=== PATIENT | female | born 2005 | race Caucasian/White ===

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

== ENCOUNTER 2023-03-31 12:52 | Emergency (ER) | payer MEDICAID, SELFPAY ==
[2023-03-31 12:56] VITALS: BP 108/72; PULSE 120; O2SAT 99
[2023-03-31 13:03] VITALS: BP 103/67; PULSE 94; RESP 18; TEMP 36.6; O2SAT 98; BMI 30.3
[2023-03-31 13:21] LABS: MANUAL DIFF FLAG NO
[2023-03-31 13:22] LABS: Basophils Absolute Auto 0.1 X10*3/uL (0.0-0.2); Basophils Percent Auto 0.8 % (0-2); Eosinophils Absolute Auto 0.3 X10*3/uL (0.0-0.4); Eosinophils Percent Auto 3.9 % (0-4); Hematocrit 37.5 % (37.0-47.0); Hemoglobin 13.2 g/dl (12.0-16.0); Imm Gran Abs Auto 0.02 X10*3/uL (0.00-0.03); Imm Gran Pct Auto 0.3 % (0.0-0.4); Lymphocytes Absolute Auto 1.8 X10*3/uL (1.2-4.9); Lymphocytes Percent Auto 24.7 % (20-40); Mean Corpuscular HGB Conc 35.2 g/dl (31.0-35.0); Mean Corpuscular Hemoglobin 31.4 pg (27.0-33.0); Mean Corpuscular Volume 89.3 fL (80.0-98.0); Monocytes Absolute Auto 0.4 X10*3/uL (0.1-1.2); Monocytes Percent Auto 6.1 % (2-11); Neutrophils Absolute Auto 4.6 x10*3/uL (2.0-8.3); Neutrophils Percent Auto 64.2 % (45-73); Platelet Count 272 X10*3/uL (160-400); Red Cell Distribution Width 11.7 % (11.0-16.0); White Blood Count 7.2 X10*3/uL (4.8-10.8)
[2023-03-31] MEDS: 0.9 % Sodium Chloride 1,000 ML 999 ML IV (13:35)
[2023-03-31 13:42] LABS: Alanine Aminotransferase 15 U/L (0-31); Albumin Level 4.3 g/dL (3.5-5.0); Alkaline Phosphatase 72 U/L (39-117); Anion Gap 9 (12-20); Aspartate Amino Transferase 22 U/L (5-31); Bilirubin Total 0.2 mg/dL (0.0-1.0); Blood Urea Nitrogen 12 mg/dL (9-16); Calcium 9.3 mg/dL (8.4-10.2); Carbon Dioxide 23 mmol/L (22-29); Chloride 111 mmol/L (96-108); Creatinine Clr Calc Pharmacy 88.6; Estimated Glomerular Filt Rate > 60; Glucose Random 103 mg/dL (60-115); HCG Quantitative < 2 mIU/mL; Potassium 3.4 mmol/L (3.3-5.1); Sodium 140 mmol/L (135-145); Total Protein 6.6 g/dL (6.5-8.0)
--- NOTE | 2023-03-31 13:50 | ED.SEIZURE ---
HPI - Seizure General Chief Complaint: Seizure Stated Complaint: SZ @ [facility] PER EMS Time Seen by Provider: 03/31/23 13:09 Source: patient and other (Teacher) Mode of arrival: EMS History of Present Illness HPI Narrative: 17-year-old female who presents via ambulance for 2 witnessed seizures while sitting and having lunch with her teacher. Patient did not fall in the floor, she was gently lowered to the floor by her teacher. Patient denies any recent medication changes and endorses that she has been taking medication as prescribed. Patient reports that she has had some lower abdominal discomfort for approximately 1 week with morning time nausea, she does have chronic nausea at baseline for which she has a prescription for the nausea, she reports sore throat denies any fevers or chills and states that she does have some burning on urination. Seizure History: Yes Place: Outdoors Related Data Home Medications Medication Instructions Recorded Confirmed cholecalciferol (vitamin D3) 25 50 mcg PO DAILY 08/14/20 01/19/23 mcg (1,000 unit) capsule (Vitamin D3) clobazam 10 mg tablet (Onfi) See Rx Instructions PO DAILY 08/14/20 01/19/23 clonazepam 2 mg disintegrating 2 mg PO ONCE PRN seizure activity 08/14/20 01/19/23 tablet diazepam 12.5 mg-15 mg-17.5 mg-20 12.5 mg OK ONCE PRN seizure 08/14/20 01/19/23 mg rectal kit activity famotidine 20 mg tablet 20 mg PO BID 08/14/20 01/19/23 fexofenadine 180 mg tablet 180 mg PO DAILY 08/14/20 01/19/23 (Allergy Relief (fexofenadine)) fluticasone propionate 50 1 spray intranasal DAILY 08/14/20 01/19/23 mcg/actuation nasal spray,suspension (Flonase Allergy Relief) ketotifen fumarate 0.025 % (0.035 1 drp ophthalmic (eye) BID 08/14/20 01/19/23 %) eye drops (Alaway) lactobacillus combination no.4 3 3,000 mmu cells PO DAILY 08/14/20 01/19/23 billion cell capsule (Probiotic) magnesium 250 mg tablet 500 mg PO DAILY 08/14/20 01/19/23 mecobalamin (vitamin B12) 5,000 mcg PO 08/14/20 01/19/23 mcg disintegrating tablet melatonin 5 mg tablet 5 mg PO BEDTIME PRN 08/14/20 01/19/23 multivitamin 1 tab PO DAILY 08/14/20 01/19/23 omeprazole 20 mg capsule,delayed 20 mg PO DAILY PRN abdominal pain 08/14/20 01/19/23 release ondansetron 8 mg disintegrating 8 mg PO Q8H PRN nausea and vomiting 08/14/20 01/19/23 tablet polyethylene glycol 3350 17 gram 17 g PO DAILY 08/14/20 01/19/23 oral powder packet (Miralax) pyridoxine (vitamin B6) 100 mg 100 mg PO BID 08/14/20 01/19/23 tablet riboflavin (vitamin B2) 100 mg 100 mg PO BID 08/14/20 01/19/23 tablet risperidone 1 mg tablet 1 mg PO BEDTIME 08/14/20 01/19/23 sennosides 8.6 mg capsule (senna) 8.6 mg PO BEDTIME 08/14/20 01/19/23 sertraline 100 mg tablet 100 mg PO DAILY 08/14/20 01/19/23 sumatriptan succinate 50 mg tablet 50 mg PO ONCE PRN migraine headache 08/14/20 01/19/23 (Imitrex) zonisamide 50 mg capsule 200 mg PO DAILY 08/14/20 01/19/23 rizatriptan 10 mg tablet 10 mg PO 01/14/22 01/19/23 sertraline 25 mg tablet 25 mg PO DAILY 01/14/22 01/19/23 trazodone 100 mg tablet 50 mg PO BEDTIME 01/14/22 01/19/23 magnesium gluconate 27 mg 27 mg PO DAILY 05/31/22 01/19/23 magnesium (500 mg) tablet (Mag-G) polyethylene glycol 3350 17 17 g PO DAILY 05/31/22 01/19/23 gram/dose oral powder (Gavilax) trazodone 50 mg tablet 50 mg PO 05/31/22 01/19/23 lamotrigine 100 mg disintegrating 300 mg PO DAILY 01/19/23 01/19/23 tablet (Lamictal ODT) Previous Rx's Medication Instructions Recorded ibuprofen 400 mg tablet 400 mg PO Q6H PRN fever or pain 09/16/20 #90 tabs oxybutynin chloride 10 mg 10 mg PO DAILY OAB 30 days #30 tabs 01/28/22 tablet,extended release 24 hr desmopressin 0.1 mg tablet 0.1 mg PO BEDTIME 90 days #90 tabs 02/28/23 epinephrine 0.3 mg/0.3 mL 0.3 mg (0.3 mL) IM Q15M PRN 03/15/23 injection, auto-injector anaphylaxis #2 ea miscellaneous medical supply See Rx Instructions .Route 03/18/23 .COMPLEX #90 ea Allergies Allergy/AdvReac Type Severity Reaction Status Date / Time cat dander Allergy Mild Watery Eye Verified 03/31/23 13:03 feathers Allergy Mild Watery Eye Verified 03/31/23 13:03 mold Allergy Mild Watery Eye Verified 03/31/23 13:03 acetaminophen Allergy Unknown Hives Verified 03/31/23 13:03 tree and shrub pollen Allergy Unknown Watery Eye Verified 03/31/23 13:03 cockroach Allergy Mild Watery Eye Uncoded 01/19/23 08:51 dust mites Allergy Mild Watery Eye Uncoded 01/19/23 08:51 Mouse Allergy Mild Itchy Eyes Uncoded 01/19/23 08:51 environmental Allergy Unknown Watery Eye Uncoded 01/19/23 08:51 lemon, [place], citrus Allergy Unknown rash Uncoded 01/19/23 08:51 red apples, peaches Allergy Unknown hives Uncoded 01/19/23 08:51 Review of Systems Review of Systems: Pertinent positives and negatives as stated in HPI [facility] Past Medical History Source: nursing notes reviewed Medical History Frequent UTI Kidney stones Schizoaffective disorder Autism Anxiety OCD (obsessive compulsive disorder) Intellectual disability Migraines Chiari malformation type I Central auditory processing disorder Bladder incontinence Cerebral palsy Seizure disorder Surgical History No pertinent past surgical history Family History Family History Mother Substance abuse Depression Anxiety Alcohol abuse Cancer Kidney disease Seizures Asthma ADHD Father Kidney disease ADHD Social History Social History Household Members: Spouse and Other Household Members Other:: w/spouse in [place] w/e's & vacations o/w in [facility] w/ mom & sibs/foster sib Alcohol intake: never Patient Tobacco Use Status: Never used Tobacco Smoked in Last 30 Days: No Advance Directives: No Advance Directives Information Provided: No Physical Exam Vital Signs: Vital Signs: Last Vital Signs Temp 97.8 F 03/31/23 13:03 Pulse 70 03/31/23 14:47 Resp 18 03/31/23 14:09 BP 96/59 L 03/31/23 14:47 Pulse Ox 98 03/31/23 14:09 O2 Del Method Room Air 03/31/23 14:09 BMI result Body Mass Index 30.3 VITAL SIGNS: Reviewed. GENERAL: Well developed, well nourished, in no acute distress. HEAD: Normocephalic/atraumatic EYES: PERRLA, EOMI EARS: Ext canals without abnormality, TMs non-bulging and non-erythematous NOSE: Nares patent bilateral OROPHARYNX: no oral lesions noted, posterior pharynx clear and non-erythematous without noted tonsillar enlargement/erythema/exudates NECK: Supple, no adenopathy LUNGS: Normal breath sounds. No adventitious sounds or accessory muscle use. SpO2<98> CARDIOVASCULAR: Regular rate and rhythm without noted murmurs ABDOMEN: Soft, mild lower abdominal discomfort, non-distended with bowel sounds. MUSCULOSKELETAL: No tenderness, deformities, or effusions noted on gross inspection. EXTREMITIES: No cyanosis, clubbing or edema. SKIN: Inspection of the skin reveals no rashes NEUROLOGIC: Alert and oriented x 4. Strength and sensation to light touch were grossly intact x 4. Medications Administered Discontinued Medications Generic Name Dose Route Start Last Admin Trade Name Freq PRN Reason Stop Dose Admin Sodium Chloride 1,000 mls @ 999 mls/hr 03/31/23 13:45 03/31/23 13:35 Ns IV 03/31/23 14:45 999 mls/hr .Q1H1M BRE Administration Medical Decision Making Medical Decision Making [facility] Narrative: 1357: 17-year-old female with history and clinical presentation, DDX: Breakthrough seizure that will be evaluated for underlying infectious, anemia, electrolyte issues. Although there is lower abdominal discomfort this is been ongoing for 1 week lowering the clinical suspicion for renal colic/appendicitis/ovarian torsion. Will evaluate for ectopic/UTI//viral syndrome. - 1L IVF I reviewed all investigations hematologic indices are negative for evidence of infection as there is no leukocytosis or left shift, no anemia no thrombocytopenia. Patient is afebrile and otherwise hemodynamically stable. Chemistry indices are negative for electrolyte or liver enzyme derangements, there is no THEO. hCG is negative. Urinalysis is negative for UTI or hematuria. Viral testing is otherwise negative and no concern for strep pharyngitis at this time. Patient seizure may be secondary to poor hydration, patient did receive 1 L of IV fluids, but is otherwise discharged home in stable condition with instructions to follow-up with her primary care doctor as well as her neurologist. Differential Diagnosis Differential Diagnoses: The differential diagnosis associated with the presentation includes Please see the discussion above Admission/Observation Consideration of admission/observation: Escalation of care including admission/observation considered Please see the discussion above Lab Data MDM Lab Attestation statement: I reviewed the patient's lab results. Please see the discussion above 03/31/23 13:16 03/31/23 13:16 Labs: Lab Results 03/31/23 03/31/23 03/31/23 Range/Units 13:16 14:10 14:37 WBC 7.2 (4.8-10.8) X10*3/uL RBC 4.20 (4.20-5.50) X10*6/uL Hgb 13.2 (12.0-16.0) g/dl Hct 37.5 (37.0-47.0) % MCV 89.3 (80.0-98.0) fL MCH 31.4 (27.0-33.0) pg MCHC 35.2 H (31.0-35.0) g/dl RDW 11.7 (11.0-16.0) % Plt Count 272 (160-400) X10*3/uL MPV 9.0 L (9.4-12.3) fL Immature Gran % (Auto) 0.3 (0.0-0.4) % Neut % (Auto) 64.2 (45-73) % Lymph % (Auto) 24.7 (20-40) % [place] % (Auto) 6.1 (2-11) % Eos % (Auto) 3.9 (0-4) % Baso % (Auto) 0.8 (0-2) % Lymph # (Auto) 1.8 (1.2-4.9) X10*3/uL [place] # (Auto) 0.4 (0.1-1.2) X10*3/uL Eos # (Auto) 0.3 (0.0-0.4) X10*3/uL Baso # (Auto) 0.1 (0.0-0.2) X10*3/uL Abs Immat Gran (auto) 0.02 (0.00-0.03) X10*3/uL Absolute Neuts (auto) 4.6 (2.0-8.3) x10*3/uL Absolute Nucleated RBC 0.000 (0.0-0.012) X10*3/uL Nucleated RBC % (auto) 0.0 (0.0-0.2) /100WBC Sodium 140 (135-145) mmol/L Potassium 3.4 (3.3-5.1) mmol/L Chloride 111 H (96-108) mmol/L Carbon Dioxide 23 (22-29) mmol/L Anion Gap 9 L (12-20) BUN 12 (9-16) mg/dL Creatinine 0.82 (0.5-1.4) mg/dL Estim Creat Clear Calc 88.6 Estimated GFR > 60 Random Glucose 103 (60-115) mg/dL Calcium 9.3 (8.4-10.2) mg/dL Total Bilirubin 0.2 (0.0-1.0) mg/dL AST 22 (5-31) U/L ALT 15 (0-31) U/L Alkaline Phosphatase 72 (39-117) U/L Total Protein 6.6 (6.5-8.0) g/dL Albumin 4.3 (3.5-5.0) g/dL Beta HCG, Quant < 2 mIU/mL Urine Color Dark Yellow Urine Appearance Clear Urine pH 6.0 (5.0-9.0) Ur Specific [place] 1.020 (1.005-1.025) Urine Protein Negative (Neg-Trace) mg/dL Urine Glucose (UA) Negative (Negative) mg/dL Urine Ketones Negative (Negative) mg/dL Urine Blood Negative (Negative) Urine Nitrite Negative (Negative) Ur Leukocyte Esterase Negative (Negative) Influenza Type A (PCR) NEGATIVE (Negative) Influenza Type B (PCR) NEGATIVE (Negative) RSV RNA Qual (PCR) NEGATIVE (Negative) SARS-CoV-2 RNA (RT-PCR) NEGATIVE (Negative) External Record Review External record reviewed: Outpatient record, Prior outpatient labs and Prior outpatient radiology Chronic Conditions Patient?s care impacted by: Other Schizoaffective disorder, autism, OCD, migraines, cerebral palsy Discharge Plan Discharge Clinical Impression: Seizure disorder Patient Disposition: Home, Self-Care Instructions: Epilepsy (ED) Additional Instructions: 1. Resume all home medications as prescribed. 2. Your workup today was negative for any concerning findings of infection, electrolyte abnormalities, and I recommend follow-up with your primary care doctor and neurologist. Return to the ER for any worsening symptoms. Prescriptions: No Action ibuprofen 400 mg tablet 400 mg PO Q6H PRN (Reason: fever or pain) Qty: 90 1RF desmopressin 0.1 mg tablet 0.1 mg PO BEDTIME 90 Days Qty: 90 0RF epinephrine 0.3 mg/0.3 mL auto-injector 0.3 mg IM Q15M PRN (Reason: anaphylaxis) Qty: 2 1RF Rx Instructions: for 2 doses miscellaneous medical supply Misc See Rx Instructions .ROUTE .COMPLEX Qty: 90 11RF Rx Instructions: pull-ups as directed; size adult small (weight = 55.7 kg). NPI#[id number] clobazam [Onfi] 10 mg tablet See Rx Instructions PO DAILY Rx Instructions: 20 mg qam and 30 mg qhs PO daily; zonisamide 50 mg capsule 200 mg PO DAILY pyridoxine (vitamin B6) 100 mg tablet 100 mg PO BID clonazepam 2 mg tablet,disintegrating 2 mg PO ONCE PRN (Reason: seizure activity) diazepam 12.5-15-17.5-20 mg kit 12.5 mg OK ONCE PRN (Reason: seizure activity) sertraline 100 mg tablet 100 mg PO DAILY risperidone 1 mg tablet 1 mg PO BEDTIME melatonin 5 mg tablet 5 mg PO BEDTIME PRN omeprazole 20 mg capsule,delayed release(DR/EC) 20 mg PO DAILY PRN (Reason: abdominal pain) famotidine 20 mg tablet 20 mg PO BID polyethylene glycol 3350 [Miralax] 17 gram powder in packet 17 g PO DAILY senna 8.6 mg capsule 8.6 mg PO BEDTIME fexofenadine [Allergy Relief (fexofenadine)] 180 mg tablet 180 mg PO DAILY fluticasone propionate [Flonase Allergy Relief] 50 mcg/actuation spray,suspension 1 spray intranasal DAILY Rx Instructions: administer into each nostril ketotifen fumarate [Alaway] 0.025 % (0.035 %) drops 1 drp ophthalmic (eye) BID Rx Instructions: administer at least 8 hours apart multivitamin Tablet 1 tab PO DAILY cholecalciferol (vitamin D3) [Vitamin D3] 25 mcg (1,000 unit) capsule 50 mcg PO DAILY mecobalamin (vitamin B12) 5,000 mcg tablet,disintegrating PO Probiotic 3 billion cell capsule 3,000 mmu cells PO DAILY Rx Instructions: administer with a meal magnesium 250 mg tablet 500 mg PO DAILY riboflavin (vitamin B2) 100 mg tablet 100 mg PO BID sumatriptan succinate [Imitrex] 50 mg tablet 50 mg PO ONCE PRN (Reason: migraine headache) ondansetron 8 mg tablet,disintegrating 8 mg PO Q8H PRN (Reason: nausea and vomiting) trazodone 100 mg tablet 50 mg PO BEDTIME sertraline 25 mg tablet 25 mg PO DAILY rizatriptan 10 mg tablet 10 mg PO magnesium gluconate [Mag-G] 27 mg magnesium (500 mg) tablet 27 mg PO DAILY polyethylene glycol 3350 [Gavilax] 17 gram/dose powder 17 g PO DAILY trazodone 50 mg tablet 50 mg PO lamotrigine [Lamictal ODT] 100 mg tablet,disintegrating 300 mg PO DAILY oxybutynin chloride 10 mg tablet extended release 24 hr 10 mg PO DAILY 30 Days Qty: 30 3RF Referrals: Jennifer Weathers MD [Primary Care Provider] -
[2023-03-31 14:09] VITALS: BP 92/60; PULSE 78; RESP 18; O2SAT 98
[2023-03-31 14:19] LABS: Appearance Urine Clear; Color Urine Dark Yellow; Glucose Urine UA Negative (Negative); Leukocyte Esterase Urine Negative (Negative); Nitrite Urine Negative (Negative); Urine Blood Negative (Negative); Urine Ketones Negative (Negative); Urine Protein Negative (Neg-Trace)
[2023-03-31 14:45] VITALS: BP 91/63; PULSE 67
[2023-03-31 14:46] VITALS: BP 97/59; PULSE 74
[2023-03-31 14:47] VITALS: BP 96/59; PULSE 70
[2023-03-31 15:18] LABS: Influenza A PCR NEGATIVE (Negative); Influenza B PCR NEGATIVE (Negative); Resp Syncy Virus RNA Qual PCR NEGATIVE (Negative); SARS COV2 PCR INHOUSE NEGATIVE (Negative)
== END 2023-03-31 15:51 | disposition home or self-care (01) ==
PROVIDERS: Emergency Provider Student in an Organized Health Care Education/Training Program; PCP Pediatrics
DX: G40.909 Epilepsy, unspecified, not intractable, without status epilepticus (principal); Z20.822 Contact with and (suspected) exposure to COVID-19; Z20.828 Contact with and (suspected) exposure to other viral communicable diseases; F25.9 Schizoaffective disorder, unspecified; G80.9 Cerebral palsy, unspecified; Z79.899 Other long term (current) drug therapy
CPT/HCPCS: 0241U; 36415; 80053; 81003; 84702; 85025; 96360; 96361; 99284

== ENCOUNTER 2023-04-04 13:25 | Emergency (ER) | payer MEDICAID, SELFPAY ==
[2023-04-04 13:42] VITALS: BP 104/66; BP 99/63; PULSE 110; PULSE 99; RESP 16; TEMP 36.8; O2SAT 100; O2SAT 99; BMI 25.9
--- NOTE | 2023-04-04 13:50 | PC.NURSE ---
pt a&ox3, vss. pt biba after having 11 minute long tonic-clonic seizure at [facility]. pt has hx of seizures and aside from today, [place] . pt reports that she usually has an aura prior to seizing - states that she tends to fall asleep out of nowhere and then begins to seize. pt denies incontinence. pt is wheelchair bound d/t hx of cerebral palsy. no trauma noted during seizing event but verbalizes 3/10 postictal headache. pt currently in no apparent distress. respirations even and unlabored. seziure pads in place for safety measures. call sheets placed within reach.
--- NOTE | 2023-04-04 14:04 | ED.SEIZURE ---
HPI - Seizure General Chief Complaint: Seizure Stated Complaint: SEIZURE Time Seen by Provider: 04/04/23 13:28 Source: [facility] and other ([facility] staff) Mode of arrival: EMS Limitations: altered mental status History of Present Illness HPI Narrative: Patient comes to the emergency room via ambulance from [facility]. According to the staff, patient started feeling ?shaky while she was in class, patient was taking to quiet room, then according to the staff, patient had an 11 minute tonic-clonic seizure. When EMS arrived, patient was postictal. Patient does have history of seizures. Patient takes Lamictal and clobazam. Staff at the Pep administers the medications so patient is compliant. During the seizure, patient did not receive any medication. At this time, patient states she feels tired, seems a bit confused. According to the staff, patient has a neurologist at [facility], Dr. Blanka Aranda Seizure History: Yes Place: School Related Data Home Medications Medication Instructions Recorded Confirmed cholecalciferol (vitamin D3) 25 50 mcg PO DAILY 08/14/20 01/19/23 mcg (1,000 unit) capsule (Vitamin D3) clobazam 10 mg tablet (Onfi) See Rx Instructions PO DAILY 08/14/20 01/19/23 clonazepam 2 mg disintegrating 2 mg PO ONCE PRN seizure activity 08/14/20 01/19/23 tablet diazepam 12.5 mg-15 mg-17.5 mg-20 12.5 mg IN ONCE PRN seizure 08/14/20 01/19/23 mg rectal kit activity famotidine 20 mg tablet 20 mg PO BID 08/14/20 01/19/23 fexofenadine 180 mg tablet 180 mg PO DAILY 08/14/20 01/19/23 (Allergy Relief (fexofenadine)) fluticasone propionate 50 1 spray intranasal DAILY 08/14/20 01/19/23 mcg/actuation nasal spray,suspension (Flonase Allergy Relief) ketotifen fumarate 0.025 % (0.035 1 drp ophthalmic (eye) BID 08/14/20 01/19/23 %) eye drops (Alaway) lactobacillus combination no.4 3 3,000 mmu cells PO DAILY 08/14/20 01/19/23 billion cell capsule (Probiotic) magnesium 250 mg tablet 500 mg PO DAILY 08/14/20 01/19/23 mecobalamin (vitamin B12) 5,000 mcg PO 08/14/20 01/19/23 mcg disintegrating tablet melatonin 5 mg tablet 5 mg PO BEDTIME PRN 08/14/20 01/19/23 multivitamin 1 tab PO DAILY 08/14/20 01/19/23 omeprazole 20 mg capsule,delayed 20 mg PO DAILY PRN abdominal pain 08/14/20 01/19/23 release ondansetron 8 mg disintegrating 8 mg PO Q8H PRN nausea and vomiting 08/14/20 01/19/23 tablet polyethylene glycol 3350 17 gram 17 g PO DAILY 08/14/20 01/19/23 oral powder packet (Miralax) pyridoxine (vitamin B6) 100 mg 100 mg PO BID 08/14/20 01/19/23 tablet riboflavin (vitamin B2) 100 mg 100 mg PO BID 08/14/20 01/19/23 tablet risperidone 1 mg tablet 1 mg PO BEDTIME 08/14/20 01/19/23 sennosides 8.6 mg capsule (senna) 8.6 mg PO BEDTIME 08/14/20 01/19/23 sertraline 100 mg tablet 100 mg PO DAILY 08/14/20 01/19/23 sumatriptan succinate 50 mg tablet 50 mg PO ONCE PRN migraine headache 08/14/20 01/19/23 (Imitrex) zonisamide 50 mg capsule 200 mg PO DAILY 08/14/20 01/19/23 rizatriptan 10 mg tablet 10 mg PO 01/14/22 01/19/23 sertraline 25 mg tablet 25 mg PO DAILY 01/14/22 01/19/23 trazodone 100 mg tablet 50 mg PO BEDTIME 01/14/22 01/19/23 magnesium gluconate 27 mg 27 mg PO DAILY 05/31/22 01/19/23 magnesium (500 mg) tablet (Mag-G) polyethylene glycol 3350 17 17 g PO DAILY 05/31/22 01/19/23 gram/dose oral powder (Gavilax) trazodone 50 mg tablet 50 mg PO 05/31/22 01/19/23 lamotrigine 100 mg disintegrating 300 mg PO DAILY 01/19/23 01/19/23 tablet (Lamictal ODT) Previous Rx's Medication Instructions Recorded ibuprofen 400 mg tablet 400 mg PO Q6H PRN fever or pain 09/16/20 #90 tabs oxybutynin chloride 10 mg 10 mg PO DAILY OAB 30 days #30 tabs 01/28/22 tablet,extended release 24 hr desmopressin 0.1 mg tablet 0.1 mg PO BEDTIME 90 days #90 tabs 02/28/23 epinephrine 0.3 mg/0.3 mL 0.3 mg (0.3 mL) IM Q15M PRN 03/15/23 injection, auto-injector anaphylaxis #2 ea miscellaneous medical supply See Rx Instructions .Route 03/18/23 .COMPLEX #90 ea Allergies Allergy/AdvReac Type Severity Reaction Status Date / Time cat dander Allergy Mild Watery Eye Verified 04/04/23 13:42 feathers Allergy Mild Watery Eye Verified 04/04/23 13:42 mold Allergy Mild Watery Eye Verified 04/04/23 13:42 acetaminophen Allergy Unknown Hives Verified 04/04/23 13:42 tree and shrub pollen Allergy Unknown Watery Eye Verified 04/04/23 13:42 cockroach Allergy Mild Watery Eye Uncoded 04/04/23 13:42 dust mites Allergy Mild Watery Eye Uncoded 04/04/23 13:42 Mouse Allergy Mild Itchy Eyes Uncoded 04/04/23 13:42 environmental Allergy Unknown Watery Eye Uncoded 04/04/23 13:42 lemon, [place], citrus Allergy Unknown rash Uncoded 04/04/23 13:42 red apples, peaches Allergy Unknown hives Uncoded 04/04/23 13:42 Review of Systems Review of Systems: Yes Unobtainable due to mental condition (Poor historian, history of autism, cerebral palsy and now postictal) [facility] Past Medical History Medical History Frequent UTI Kidney stones Schizoaffective disorder Autism Anxiety OCD (obsessive compulsive disorder) Intellectual disability Migraines Chiari malformation type I Central auditory processing disorder Bladder incontinence Cerebral palsy Seizure disorder Surgical History No pertinent past surgical history Family History Family History Mother Substance abuse Depression Anxiety Alcohol abuse Cancer Kidney disease Seizures Asthma ADHD Father Kidney disease ADHD Social History Social History Household Members: Spouse and Other Household Members Other:: w/spouse in [place] w/e's & vacations o/w in [facility] w/ mom & sibs/foster sib Alcohol intake: never Patient Tobacco Use Status: Never used Tobacco Smoked in Last 30 Days: No Use of substances other than those prescribed or required for medical reasons: No Advance Directives: No Advance Directives Information Provided: Yes Patient : No Physical Exam Vital Signs: Vital Signs: Last Vital Signs Temp 98.4 F 04/04/23 14:51 Pulse 77 04/04/23 14:51 Resp 18 04/04/23 14:51 BP 100/70 04/04/23 14:51 Pulse Ox 96 04/04/23 14:51 O2 Del Method Room Air 04/04/23 14:51 BMI result Body Mass Index 25.9 Const: Other: Appearance: Alert. Since postictal, No acute distress. Eyes: Pupils equal, round and reactive to light. ENT: Pharynx normal. Neck: Normal inspection. Neck supple. No lymph nodes noted. No crepitus CVS: Normal heart rate and rhythm. Pulses normal. Normal S1 and S2 Respiratory: No respiratory distress. Breath sounds normal. No Wheezing. No rales Abdomen: Soft and nontender. No rigidity. No distention. Skin: Skin warm and dry. Normal skin color. Normal skin turgor. Extremities: No lower extremity edema. No Lacerations. No Rash Neuro: Patient is postictal, a bit confused, difficult to assess cranial nerves but CN 2 through 12 are grossly intact Psych: calm, cooperative Course Course Course Narrative: -all of patient's labs pending -here in the ED, patient has not had any seizure-like activities -once workup is complete, we will try to contact patient's neurologist at [facility] Medical Decision Making Medical Decision Making MDM Narrative: -patient is awake alert and oriented x3, back to baseline, patient states that she refuses to have any of the labs done in requesting to be discharged. Patient instructed to follow-up with her neurologist as her medications may need to be changed and she will need labs. Differential Diagnosis Differential Diagnoses: The differential diagnosis associated with the presentation includes (Seizure, pseudo-seizure) Admission/Observation Consideration of admission/observation: Escalation of care including admission/observation considered (When patient came in, patient seemed postictal, admission was considered) Lab Data MDM Lab Attestation statement: I reviewed the patient's lab results. Labs: Lab Results 04/04/23 Range/Units 14:55 Urine Color Yellow Urine Appearance Clear Urine pH 6.0 (5.0-9.0) Ur Specific [place] <= 1.005 (1.005-1.025) Urine Protein Negative (Neg-Trace) mg/dL Urine Glucose (UA) Negative (Negative) mg/dL Urine Ketones Negative (Negative) mg/dL Urine Blood Negative (Negative) Urine Nitrite Negative (Negative) Ur Leukocyte Esterase Trace H (Negative) Urine RBC 0-2 (0-2) /HPF Urine WBC 0-5 (0-5) /HPF Ur Squamous Epith Cells 0-2 (0-2) /HPF Urine Bacteria None Seen (None Seen) Hyaline Casts 0-2 (0-2) /LPF Critical Care Time Critical Care Time Critical Care Time: Yes Total Critical Care Time: 60 Attestation: I have personally provided critical care time. Time includes review of lab data, radiology results, discussion with consultants, and monitoring for potential decompensation. Intervention performed as documented. Discharge Plan Discharge Clinical Impression: Seizure Patient Disposition: Home, Self-Care Instructions: Recurrent Seizures in Adults (ED) Additional Instructions: You refused to have lab work done. Please follow-up with your neurologist and with your primary care physician tomorrow. If you have any worsening or new symptoms, please return to the emergency room or call 911 Prescriptions: No Action ibuprofen 400 mg tablet 400 mg PO Q6H PRN (Reason: fever or pain) Qty: 90 1RF desmopressin 0.1 mg tablet 0.1 mg PO BEDTIME 90 Days Qty: 90 0RF epinephrine 0.3 mg/0.3 mL auto-injector 0.3 mg IM Q15M PRN (Reason: anaphylaxis) Qty: 2 1RF Rx Instructions: for 2 doses miscellaneous medical supply Misc See Rx Instructions .ROUTE .COMPLEX Qty: 90 11RF Rx Instructions: pull-ups as directed; size adult small (weight = 55.7 kg). NPI#[id number] clobazam [Onfi] 10 mg tablet See Rx Instructions PO DAILY Rx Instructions: 20 mg qam and 30 mg qhs PO daily; zonisamide 50 mg capsule 200 mg PO DAILY pyridoxine (vitamin B6) 100 mg tablet 100 mg PO BID clonazepam 2 mg tablet,disintegrating 2 mg PO ONCE PRN (Reason: seizure activity) diazepam 12.5-15-17.5-20 mg kit 12.5 mg IN ONCE PRN (Reason: seizure activity) sertraline 100 mg tablet 100 mg PO DAILY risperidone 1 mg tablet 1 mg PO BEDTIME melatonin 5 mg tablet 5 mg PO BEDTIME PRN omeprazole 20 mg capsule,delayed release(DR/EC) 20 mg PO DAILY PRN (Reason: abdominal pain) famotidine 20 mg tablet 20 mg PO BID polyethylene glycol 3350 [Miralax] 17 gram powder in packet 17 g PO DAILY senna 8.6 mg capsule 8.6 mg PO BEDTIME fexofenadine [Allergy Relief (fexofenadine)] 180 mg tablet 180 mg PO DAILY fluticasone propionate [Flonase Allergy Relief] 50 mcg/actuation spray,suspension 1 spray intranasal DAILY Rx Instructions: administer into each nostril ketotifen fumarate [Alaway] 0.025 % (0.035 %) drops 1 drp ophthalmic (eye) BID Rx Instructions: administer at least 8 hours apart multivitamin Tablet 1 tab PO DAILY cholecalciferol (vitamin D3) [Vitamin D3] 25 mcg (1,000 unit) capsule 50 mcg PO DAILY mecobalamin (vitamin B12) 5,000 mcg tablet,disintegrating PO Probiotic 3 billion cell capsule 3,000 mmu cells PO DAILY Rx Instructions: administer with a meal magnesium 250 mg tablet 500 mg PO DAILY riboflavin (vitamin B2) 100 mg tablet 100 mg PO BID sumatriptan succinate [Imitrex] 50 mg tablet 50 mg PO ONCE PRN (Reason: migraine headache) ondansetron 8 mg tablet,disintegrating 8 mg PO Q8H PRN (Reason: nausea and vomiting) trazodone 100 mg tablet 50 mg PO BEDTIME sertraline 25 mg tablet 25 mg PO DAILY rizatriptan 10 mg tablet 10 mg PO magnesium gluconate [Mag-G] 27 mg magnesium (500 mg) tablet 27 mg PO DAILY polyethylene glycol 3350 [Gavilax] 17 gram/dose powder 17 g PO DAILY trazodone 50 mg tablet 50 mg PO lamotrigine [Lamictal ODT] 100 mg tablet,disintegrating 300 mg PO DAILY oxybutynin chloride 10 mg tablet extended release 24 hr 10 mg PO DAILY 30 Days Qty: 30 3RF
--- NOTE | 2023-04-04 14:47 | MHC.EDTECH ---
Patient refuse to draw blood.Ask to talk to the nurse. TARSHA Black is aware.
[2023-04-04 14:51] VITALS: BP 100/70; PULSE 77; RESP 18; TEMP 36.9; O2SAT 96
[2023-04-04 15:04] LABS: Appearance Urine Clear; Color Urine Yellow; Glucose Urine UA Negative (Negative); Leukocyte Esterase Urine Trace (Negative); Nitrite Urine Negative (Negative); Specific Gravity - Urine <= 1.005 (1.005-1.025); UMIC TRIGGER UACC YES; Urine Blood Negative (Negative); Urine Ketones Negative (Negative); Urine Protein Negative (Neg-Trace)
[2023-04-04 15:07] LABS: Bacteria Urine None Seen (None Seen); Hyaline Casts Urine 0-2 /LPF (0-2); RBC Urine 0-2 /HPF (0-2); Squamous Epithelial Cell Urine 0-2 /HPF (0-2); WBC Urine 0-5 /HPF (0-5)
[2023-04-04 16:54] LABS: Amphetamine Screen Urine Not Detected (Not Detect); Barbiturates, Urine Not Detected (Not Detect); Benzodiazepines Screen Urine POSITIVE (Not Detect); Cannabinoid Screen Urine Not Detected (Not Detect); Cocaine Screen Urine Not Detected (Not Detect); Fentanyl, urine Not Detected (Not Detect); Opiate Screen Urine Not Detected (Not Detect); Phencyclidine Screen Urine Not Detected (Not Detect)
== END 2023-04-04 15:54 | disposition home or self-care (01) ==
PROVIDERS: Emergency Provider Emergency Medicine
DX: R56.9 Unspecified convulsions (principal); Z79.899 Other long term (current) drug therapy
CPT/HCPCS: 80307; 81001; 81003; 99284

== ENCOUNTER 2023-04-20 15:49 | Outpatient (AMB) | payer MEDICAID, SELFPAY ==
--- NOTE | 2023-04-20 15:56 | MHC.OFVISPED ---
Intake Vital Signs 04/20/23 16:19 Height 4 ft 11.5 in Height percentile 5 Weight 133 lb 2 oz Weight percentile 75 Measurement Type Standing Scale BMI 26.4 BMI percentile 85 Temp 98.2 F Temp Source Oral Pulse 102 H Pulse Source Pulse Oximeter BP 112/70 Blood Pressure Source Manual Cuff/Palpation Position Sitting Pulse Oximetry (%) 99 Pediatric Intake Visit Reasons: TH-Cough,ST, -Covid [phone] Allergies cat dander Allergy (Mild, Verified 04/20/23 16:07) Watery Eye feathers Allergy (Mild, Verified 04/20/23 16:07) Watery Eye mold Allergy (Mild, Verified 04/20/23 16:07) Watery Eye acetaminophen Allergy (Unknown, Verified 04/20/23 16:07) Hives tree and shrub pollen Allergy (Unknown, Verified 04/20/23 16:07) Watery Eye cockroach Allergy (Mild, Uncoded 04/20/23 16:07) Watery Eye dust mites Allergy (Mild, Uncoded 04/20/23 16:07) Watery Eye Mouse Allergy (Mild, Uncoded 04/20/23 16:07) Itchy Eyes environmental Allergy (Unknown, Uncoded 04/20/23 16:07) Watery Eye lemon, [place], citrus Allergy (Unknown, Uncoded 04/20/23 16:07) rash red apples, peaches Allergy (Unknown, Uncoded 04/20/23 16:07) hives Medication List - Last Reconciled 04/20/23 by Jennifer Weathers MD cholecalciferol (vitamin D3) (Vitamin D3) 50 mcg PO DAILY clobazam (Onfi) 20 mg qam and 30 mg qhs PO daily; clonazepam 2 mg PO ONCE PRN desmopressin 0.1 mg PO BEDTIME 90 days diazepam 12.5 mg [place] ONCE PRN epinephrine 0.3 mg (0.3 mL) IM Q15M PRN famotidine 20 mg PO BID fexofenadine (Allergy Relief (fexofenadine)) 180 mg PO DAILY fluticasone propionate 50 mcg/actuation (Flonase Allergy Relief) 1 spray intranasal DAILY ibuprofen 400 mg PO Q6H PRN ketotifen fumarate 0.025%(0.035%) (Alaway) 1 drp ophthalmic (eye) BID lactobacillus combination no.4 (Probiotic) 3,000 mmu cells PO DAILY lamotrigine (Lamictal ODT) 300 mg PO DAILY magnesium 500 mg PO DAILY magnesium gluconate (Mag-G) 27 mg PO DAILY mecobalamin (vitamin B12) mcg PO melatonin 5 mg PO BEDTIME PRN miscellaneous medical supply pull-ups as directed; size adult small (weight = 55.7 kg). NPI#[id number] multivitamin 1 tab PO DAILY omeprazole 20 mg PO DAILY PRN ondansetron 8 mg PO Q8H PRN oxybutynin chloride ER 10 mg PO DAILY 30 days polyethylene glycol 3350 (Miralax) 17 grams PO DAILY polyethylene glycol 3350 (Gavilax) 17 grams PO DAILY pyridoxine (vitamin B6) 100 mg PO BID riboflavin (vitamin B2) 100 mg PO BID risperidone 1 mg PO BEDTIME rizatriptan 10 mg PO sennosides (senna) 8.6 mg PO BEDTIME sertraline 100 mg PO DAILY sertraline 25 mg PO DAILY sumatriptan succinate (Imitrex) 50 mg PO ONCE PRN trazodone 50 mg PO BEDTIME trazodone 50 mg PO zonisamide 200 mg PO DAILY HPI TH-Cough,ST, -Covid [phone] Details: day 5 cough, congestion, rhinorrhea. also ST and body aches. home covid test x 1 was negative. she is very congested and the skin under her nose is irritated and painful. she has left ear pain. she has had tactile fever. 2 d ago after she showered she felt dizzy and fell and hit her head. no abrasion/contusion or LOC. 2 foster sibs at home have RSV PFSH Medical History Frequent UTI Kidney stones Schizoaffective disorder Autism Anxiety OCD (obsessive compulsive disorder) Intellectual disability Migraines Chiari malformation type I Central auditory processing disorder Bladder incontinence Cerebral palsy Seizure disorder Surgical History No pertinent past surgical history Family History Mother Substance abuse Depression Anxiety Alcohol abuse Cancer Kidney disease Seizures Asthma ADHD Father Kidney disease ADHD Social History Household Members: Spouse and Other Household Members Other:: w/spouse in [place] w/e's & vacations o/w in [facility] w/ mom & sibs/foster sib Alcohol intake: never Patient Tobacco Use Status: Never used Tobacco Review of Systems Const Reports as per HPI ENT Reports as per HPI Resp Reports as per HPI GI Reports as per HPI Pediatric Exam Const Constitutional General: healthy appearing, comfortable and no acute distress HENMT Ears: EAC's normal, TM normal on the right and TM abnormal on the left retracted Mouth: Normal oral and palatal mucosa present and moist mucous membranes Throat: posterior oropharynx abnormal erythema Neck Other: neck supple Lymphatic: no lymphadenopathy noted Resp Effort & Inspection: normal respiratory effort Auscultation: clear to auscultation bilaterally, no crackles, no rales, no rhonchi and no wheezes Cardio Rate: regular rate Rhythm: regular rhythm Heart sounds: S1 normal heart sound present, S2 normal heart sound present and no murmurs Skin General: no rashes or lesions noted Assessment & Plan Assessment & Plan (1) Viral illness: Code(s): B34.9 - Viral infection, unspecified Plan: advised symptomatic care including increased fluids and tylenol/ibuprofen prn fever or discomfort. Can use nasal saline prn congestion. call for worsening symptoms or no improvement in 1 week. Coding Level of Care Code Est Pt Level 3 (04716) Diagnoses Viral illness B34.9
[2023-04-20 16:19] VITALS: BP 112/70; PULSE 102; TEMP 36.8; O2SAT 99; BMI 26.4
== END 2023-04-20 16:53 | disposition home or self-care (01) ==
PROVIDERS: Visit Provider Pediatrics
DX: B34.9 Viral infection, unspecified (principal)
CPT/HCPCS: 99213

== ENCOUNTER 2023-04-20 16:56 | Outpatient (REF) | payer MEDICAID, SELFPAY ==
[2023-04-20 17:22] LABS: IDNOW Serial# 08D9AD1C; Strep A Nucleic Acid Negative (Negative)
[2023-04-20 18:13] LABS: Influenza A PCR NEGATIVE (Negative); Influenza B PCR NEGATIVE (Negative); Resp Syncy Virus RNA Qual PCR NEGATIVE (Negative); SARS COV2 PCR INHOUSE NEGATIVE (Negative)
== END 2023-04-20 16:57 | disposition home or self-care (01) ==
LOC: HO.LNP 16:56
PROVIDERS: Visit Provider Pediatrics
DX: J02.9 Acute pharyngitis, unspecified (principal); R09.89 Other specified symptoms and signs involving the circulatory and respiratory systems
CPT/HCPCS: 0241U; 87651

== ENCOUNTER 2023-05-05 15:10 | Outpatient (AMB) | payer MEDICAID, SELFPAY ==
--- NOTE | 2023-05-05 15:13 | A.OFFVISP_ITS ---
Intake Vital Signs 05/05/23 15:19 Height 4 ft 11.5 in Height percentile 5 Weight 133 lb Weight percentile 75 Measurement Type Standing Scale BMI 26.4 BMI percentile 85 Temp 98.4 F Temp Source Temporal Artery Scan Pulse 103 H Pulse Source Pulse Oximeter BP 114/68 Blood Pressure Source Manual Cuff/Palpation Position Sitting Pulse Oximetry (%) 99 Pediatric Intake Visit Reasons: ear pain Accompanied by: Mother Allergies cat dander Allergy (Mild, Verified 05/05/23 15:13) Watery Eye feathers Allergy (Mild, Verified 05/05/23 15:13) Watery Eye mold Allergy (Mild, Verified 05/05/23 15:13) Watery Eye acetaminophen Allergy (Unknown, Verified 05/05/23 15:13) Hives tree and shrub pollen Allergy (Unknown, Verified 05/05/23 15:13) Watery Eye cockroach Allergy (Mild, Uncoded 05/05/23 15:13) Watery Eye dust mites Allergy (Mild, Uncoded 05/05/23 15:13) Watery Eye Mouse Allergy (Mild, Uncoded 05/05/23 15:13) Itchy Eyes environmental Allergy (Unknown, Uncoded 05/05/23 15:13) Watery Eye lemon, [place], citrus Allergy (Unknown, Uncoded 05/05/23 15:13) rash red apples, peaches Allergy (Unknown, Uncoded 05/05/23 15:13) hives Medication List - Last Reconciled 05/05/23 by Damari Weathers PA-C amoxicillin-pot clavulanate 875-125 mg 1 tab PO BID 10 days cholecalciferol (vitamin D3) (Vitamin D3) 50 mcg PO DAILY clobazam (Onfi) 20 mg qam and 30 mg qhs PO daily; clonazepam 2 mg PO ONCE PRN desmopressin 0.1 mg PO BEDTIME 90 days diazepam 12.5 mg [place] ONCE PRN epinephrine 0.3 mg (0.3 mL) IM Q15M PRN famotidine 20 mg PO BID fexofenadine (Allergy Relief (fexofenadine)) 180 mg PO DAILY fluticasone propionate 50 mcg/actuation (Flonase Allergy Relief) 1 spray intranasal DAILY ibuprofen 400 mg PO Q6H PRN ketotifen fumarate 0.025%(0.035%) (Alaway) 1 drp ophthalmic (eye) BID lactobacillus combination no.4 (Probiotic) 3,000 mmu cells PO DAILY lamotrigine (Lamictal ODT) 300 mg PO DAILY magnesium 500 mg PO DAILY magnesium gluconate (Mag-G) 27 mg PO DAILY mecobalamin (vitamin B12) mcg PO melatonin 5 mg PO BEDTIME PRN miscellaneous medical supply pull-ups as directed; size adult small (weight = 55.7 kg). NPI#[id number] multivitamin 1 tab PO DAILY omeprazole 20 mg PO DAILY PRN ondansetron 8 mg PO Q8H PRN oxybutynin chloride ER 10 mg PO DAILY 30 days polyethylene glycol 3350 (Miralax) 17 grams PO DAILY pyridoxine (vitamin B6) 100 mg PO BID riboflavin (vitamin B2) 100 mg PO BID risperidone 1 mg PO BEDTIME rizatriptan 10 mg PO sennosides (senna) 8.6 mg PO BEDTIME sertraline 100 mg PO DAILY sertraline 25 mg PO DAILY sumatriptan succinate (Imitrex) 50 mg PO ONCE PRN trazodone 50 mg PO BEDTIME trazodone 50 mg PO zonisamide 200 mg PO DAILY HPI HPI Comments Details: 17-year-old female with complex medical presents with her mother for evaluation of left-sided neck pain with radiation to the ear. Patient was evaluated on 04/20/2023 with viral symptoms. At that time, she was noted to have a right ear exam and a TM retraction on the left. She denies fever. Admits to dysphagia but no difficulty swallowing saliva. Reports that is difficult to turn her head to the right side. Reports that she had a sore throat when 1st sick but does not have throat pain presently. [facility] Medical History Frequent UTI Kidney stones Schizoaffective disorder Autism Anxiety OCD (obsessive compulsive disorder) Intellectual disability Migraines Chiari malformation type I Central auditory processing disorder Bladder incontinence Cerebral palsy Seizure disorder Surgical History No pertinent past surgical history Family History Mother Substance abuse Depression Anxiety Alcohol abuse Cancer Kidney disease Seizures Asthma ADHD Father Kidney disease ADHD Social History Household Members: Spouse and Other Household Members Other:: w/spouse in [place] w/e's & vacations o/w in [facility] w/ mom & sibs/foster sib Alcohol intake: never Patient Tobacco Use Status: Never used Tobacco Review of Systems Const All systems reviewed & are unremarkable except as noted in HPI and below Pediatric Exam Const Constitutional General: no acute distress, well developed, alert and awake Nutritional appearance: well nourished [facility] Head: normal to inspection, normocephalic and atraumatic Ears: hearing grossly normal bilaterally, external ears normal, TM's normal bilaterally and EAC's normal Nose: Normal external nose present, Normal nares present and Normal nasal mucous membranes and turbinates present Mouth: Normal oral and palatal mucosa present, lip normal, tongue normal, moist mucous membranes and palate normal Throat: posterior oropharynx normal, uvula midline and abnormal tonsil bilateral exudates (White) and hypertrophy (1+ right and 2+ on left) Eyes General: appearance normal, both eyes and all related structures Eyelids: eyelids normal Sclerae: sclerae normal Pupils: Equal, round and reactive pupils present Neck Other: Pain with rotation to the right, tender to palpation anterior to the SCM superiorly and posterior to the SCM inferiorly Chest Chest: normal inspection of the chest Resp Effort & Inspection: normal respiratory effort Auscultation: clear to auscultation bilaterally Cardio Rate: regular rate Rhythm: regular rhythm Heart sounds: S1 normal heart sound present and S2 normal heart sound present Neuro Cranial nerves: Yes Equal, round and reactive pupils present Assessment & Plan Assessment & Plan (1) Swelling, mass, or lump in head and neck: Code(s): R22.0 - Localized swelling, mass and lump, head; R22.1 - Localized swelling, mass and lump, neck Plan: 17-year-old female with complex medical history with recent URI presenting with left-sided neck pain associated with dysphagia and decreased range of motion. Examination shows left greater than right tonsillar asymmetry with exudate and tender adenopathy in the left neck. Recommended treatment with Augmentin 875 b.i.d. times 10 days, increased hydration, Tylenol or ibuprofen as needed for pain, and rest. Follow-up immediately for development of fever, trismus, difficulty swallowing saliva, shortness of breath or worsening neck swelling. Otherwise, follow up in 1 week for re-evaluation to ensure tonsil examination normalizes. Medications: New amoxicillin-pot clavulanate 875-125 mg 1 tab PO BID 10 days 20 tabs 0RF Coding Level of Care Code Est Pt Level 3 (93415) Diagnoses Swelling, mass, or lump in head and neck R22.0; R22.1
[2023-05-05 15:19] VITALS: BP 114/68; PULSE 103; TEMP 36.9; O2SAT 99; BMI 26.4
== END 2023-05-05 15:46 | disposition home or self-care (01) ==
LOC: HO.HMGP 15:10
PROVIDERS: Visit Provider Physician Assistant
DX: R22.0 Localized swelling, mass and lump, head (principal); R22.1 Localized swelling, mass and lump, neck; F25.9 Schizoaffective disorder, unspecified; F84.0 Autistic disorder; F41.9 Anxiety disorder, unspecified
CPT/HCPCS: 99213

== ENCOUNTER 2023-05-10 15:14 | Outpatient (AMB) | payer MEDICAID, SELFPAY ==
--- NOTE | 2023-05-10 15:22 | A.OFFVIS_ITS ---
Intake Intake Visit Reasons: 6m follow up Allergies cat dander Allergy (Mild, Verified 05/05/23 15:13) Watery Eye feathers Allergy (Mild, Verified 05/05/23 15:13) Watery Eye mold Allergy (Mild, Verified 05/05/23 15:13) Watery Eye acetaminophen Allergy (Unknown, Verified 05/05/23 15:13) Hives tree and shrub pollen Allergy (Unknown, Verified 05/05/23 15:13) Watery Eye cockroach Allergy (Mild, Uncoded 05/05/23 15:13) Watery Eye dust mites Allergy (Mild, Uncoded 05/05/23 15:13) Watery Eye Mouse Allergy (Mild, Uncoded 05/05/23 15:13) Itchy Eyes environmental Allergy (Unknown, Uncoded 05/05/23 15:13) Watery Eye lemon, squaxin, citrus Allergy (Unknown, Uncoded 05/05/23 15:13) rash red apples, peaches Allergy (Unknown, Uncoded 05/05/23 15:13) hives Medication List - Last Reconciled 05/10/23 by Iron Veliz MD amoxicillin-pot clavulanate 875-125 mg 1 tab PO BID 10 days cholecalciferol (vitamin D3) (Vitamin D3) 50 mcg PO DAILY clobazam (Onfi) 20 mg qam and 30 mg qhs PO daily; clonazepam 2 mg PO ONCE PRN desmopressin 0.1 mg PO BEDTIME 90 days diazepam 12.5 mg MS ONCE PRN epinephrine 0.3 mg (0.3 mL) IM Q15M PRN famotidine 20 mg PO BID fexofenadine (Allergy Relief (fexofenadine)) 180 mg PO DAILY fluticasone propionate 50 mcg/actuation (Flonase Allergy Relief) 1 spray intranasal DAILY ibuprofen 400 mg PO Q6H PRN ketotifen fumarate 0.025%(0.035%) (Alaway) 1 drp ophthalmic (eye) BID lactobacillus combination no.4 (Probiotic) 3,000 mmu cells PO DAILY lamotrigine (Lamictal ODT) 300 mg PO DAILY magnesium 500 mg PO DAILY magnesium gluconate (Mag-G) 27 mg PO DAILY mecobalamin (vitamin B12) mcg PO melatonin 5 mg PO BEDTIME PRN miscellaneous medical supply pull-ups as directed; size adult small (weight = 55.7 kg). NPI#[id number] multivitamin 1 tab PO DAILY omeprazole 20 mg PO DAILY PRN ondansetron 8 mg PO Q8H PRN polyethylene glycol 3350 (Miralax) 17 grams PO DAILY pyridoxine (vitamin B6) 100 mg PO BID riboflavin (vitamin B2) 100 mg PO BID risperidone 1 mg PO BEDTIME rizatriptan 10 mg PO sennosides (senna) 8.6 mg PO BEDTIME sertraline 100 mg PO DAILY sertraline 25 mg PO DAILY sumatriptan succinate (Imitrex) 50 mg PO ONCE PRN terazosin 1 mg PO BEDTIME 30 days trazodone 50 mg PO BEDTIME trazodone 50 mg PO zonisamide 200 mg PO DAILY HPI HPI Comments History of Present Illness Details Paola is a pleasant female. She is a patient of Dr. Weathers. She seen for the following urologic issues - neurogenic bladder - nephrolithiasis - enuresis Telemedicine Evaluation 15 min Consultation Affectv Dwain Video Six month follow-up from desmopressin use for enuresis Does not think medication is working effectively Is using 2 pads per night Trial terazosin for bladder emptying 2 month follow-up PVR Does state that bowel habits are improved with bowel motion every day to every other day on combination MiraLax and senna Background of cerebral palsy with epilepsy and schizoaffective disorder with autism On significant number of medications for seizure control Nephrolithiasis Imaging 02/05 4 mm left upper pole - 06/08 US with 4mm left stone 24 hour urine - 02/05 good volume, low citrate Encouraged lemon supplementation Enuresis Persistent Secondary to antiseizure medications Good response to DDAVP Neurogenic bladder Wears liners during the day Reports reasonable control Poor response to oxybutynin Does manage GI constipation with MiraLax PFSH Medical History Frequent UTI Kidney stones Schizoaffective disorder Autism Anxiety OCD (obsessive compulsive disorder) Intellectual disability Migraines Chiari malformation type I Central auditory processing disorder Bladder incontinence Cerebral palsy Seizure disorder Surgical History No pertinent past surgical history Family History Mother Substance abuse Depression Anxiety Alcohol abuse Cancer Kidney disease Seizures Asthma ADHD Father Kidney disease ADHD Social History Household Members: Spouse and Other Household Members Other:: w/spouse in [place] w/e's & vacations o/w in [facility] w/ mom & sibs/foster sib Alcohol intake: never Patient Tobacco Use Status: Never used Tobacco Review of Systems Const All systems reviewed & are unremarkable except as noted in HPI and below Reports no additional complaints Resp Reports no additional complaints GI Reports no additional complaints Reports as per HPI Musc Reports no additional complaints Physical Exam Telemedicine evaluation Appropriate responses Regular breathing rate and rhythm HEENT Head: Yes normal to inspection Ears: hearing grossly normal bilaterally Eyes General: appearance normal, both eyes and all related structures Neck Neck: Yes normal visual inspection Chest Chest palpation & inspection: normal inspection of the chest Resp Effort & Inspection: normal respiratory effort and able to speak in complete sentences Assessment & Plan Assessment & Plan (1) Bladder incontinence: Code(s): R32 - Unspecified urinary incontinence Qualifiers: Urinary Incontinence type: functional incontinence Qualified Code(s): R39.81 - Functional urinary incontinence Plan Trial terazosin Medications: New terazosin 1 mg PO BEDTIME 30 caps 1RF 30 days R39.12 - Poor urinary stream Discontinued oxybutynin chloride ER Discontinued Reason: Patient Completed Course 10 mg PO DAILY 30 tabs 3RF OAB 30 days R35.0 - Frequency of micturition Patient Instructions: Imaging studies, laboratory and physical exam results were discussed and reviewed in detail. No major barriers to patient understanding were identified. An opportunity to ask questions regarding the treatment plan was provided. All questions were answered. The patient expressed understanding and agreement with the above treatment plan. The patient is aware they should contact our office by phone for worsening of their current condition or the appearance of new urologic symptoms. Compliance is encouraged with any medications and followup testing that is ordered. It is a privilege to participate in the urologic care of your patient. If you have any questions or concerns regarding treatment for the above conditions, or other urologic issues, please do not hesitate to contact me. The office telephone contact is [phone]. This note is constructed using voice recognition software. While every effort has been made to ensure accuracy movie actor errors may have been included. Yours sincerely, Dr Iron Veliz MD, [facility] - Urology Providers of Expert, Compassionate Care for the Genitourinary System Telehealth Telehealth Location of provider rendering services: practice address Location of patient: address on file Patient Identification confirmed using: Name, : Yes Telehealth method: voice only Patient verbally consented to treatment: Yes Patient verbally consented to billing insurance company: Yes Patient informed of any privacy concerns related to visit: Yes Coding Level of Care Code Tele Est Pt Level 4 (39253) Diagnoses Functional urinary incontinence R39.81 Urinary Incontinence type: functional incontinence
== END 2023-05-10 16:00 | disposition home or self-care (01) ==
LOC: HO.HUSH 15:15
PROVIDERS: PCP Pediatrics; Visit Provider Urology
DX: R39.81 Functional urinary incontinence (principal)
CPT/HCPCS: 99214

== ENCOUNTER → 2023-05-10 15:14 | Outpatient (BNVA) | payer MEDICAID, SELFPAY | PROVIDERS: PCP Pediatrics; Visit Provider Urology ==

== ENCOUNTER 2023-05-16 08:29 | Outpatient (AMB) | payer MEDICAID, SELFPAY ==
--- NOTE | 2023-05-16 08:31 | A.OFFVISP_ITS ---
Intake Vital Signs 05/16/23 08:35 Height 4 ft 11.5 in Height percentile 5 Weight 136 lb 2 oz Weight percentile 75 Measurement Type Standing Scale BMI 27.0 BMI percentile 90 Temp 97.4 F Temp Source Temporal Artery Scan Pulse 59 Pulse Source Pulse Oximeter BP 114/70 Blood Pressure Source Manual Cuff/Palpation Position Sitting Pulse Oximetry (%) 99 Pediatric Intake Visit Reasons: Tonsillitis Follow Up Accompanied by: Self / Same As Patient Allergies cat dander Allergy (Mild, Verified 05/16/23 08:31) Watery Eye feathers Allergy (Mild, Verified 05/16/23 08:31) Watery Eye mold Allergy (Mild, Verified 05/16/23 08:31) Watery Eye acetaminophen Allergy (Unknown, Verified 05/16/23 08:31) Hives tree and shrub pollen Allergy (Unknown, Verified 05/16/23 08:31) Watery Eye cockroach Allergy (Mild, Uncoded 05/16/23 08:31) Watery Eye dust mites Allergy (Mild, Uncoded 05/16/23 08:31) Watery Eye Mouse Allergy (Mild, Uncoded 05/16/23 08:31) Itchy Eyes environmental Allergy (Unknown, Uncoded 05/16/23 08:31) Watery Eye lemon, [place]vel[place], citrus Allergy (Unknown, Uncoded 05/16/23 08:31) rash red apples, peaches Allergy (Unknown, Uncoded 05/16/23 08:31) hives HPI HPI Comments Details: 17-year-old female with complex medical history presents for re-evaluation of tonsillitis treated with a course of Augmentin. Patient reports she feels somewhat improved, however reports persisted left-sided ear pain causing difficulty wearing her hearing aid, difficulty swallowing cold liquids, nasal congestion, and barky cough. [facility] Medical History Frequent UTI Kidney stones Schizoaffective disorder Autism Anxiety OCD (obsessive compulsive disorder) Intellectual disability Migraines Chiari malformation type I Central auditory processing disorder Bladder incontinence Cerebral palsy Seizure disorder Surgical History No pertinent past surgical history Family History Mother Substance abuse Depression Anxiety Alcohol abuse Cancer Kidney disease Seizures Asthma ADHD Father Kidney disease ADHD Social History (Updated 05/16/23 @ 08:32 by Chelsy Neal CMA) Household Members: Spouse and Other Household Members Other:: w/spouse in [place] w/e's & vacations o/w in [facility] w/ mom & sibs/foster sib Alcohol intake: never Patient Tobacco Use Status: Never used Tobacco Cognitive needs: No Hearing needs: No Vision needs: No Review of Systems Const All systems reviewed & are unremarkable except as noted in HPI and below Pediatric Exam Const Constitutional General: cooperative, comfortable, no acute distress, well developed, alert and awake Nutritional appearance: well nourished [facility] Head: normal to inspection, normocephalic and atraumatic Ears: hearing grossly normal bilaterally (Wearing binaural amplification, removed for exam), external ears normal, TM's normal bilaterally and EAC's normal (Cerumen absent) Nose: Normal external nose present, Normal nares present and Normal nasal mucous membranes and turbinates present (Mild congestion, clear drainage) Mouth: Normal oral and palatal mucosa present, lip normal, tongue normal, moist mucous membranes and palate normal Throat: posterior oropharynx normal, uvula midline and abnormal tonsil (1+ bilaterally, white exudate on right) Eyes Other: Glasses General: appearance normal, both eyes and all related structures Eyelids: eyelids normal Sclerae: sclerae normal Pupils: Equal, round and reactive pupils present Neck Lymphatic: lymphadenopathy left anterior cervical Chest Chest: normal inspection of the chest Resp Effort & Inspection: normal respiratory effort Auscultation: clear to auscultation bilaterally Cardio Rate: regular rate Rhythm: regular rhythm Heart sounds: S1 normal heart sound present and S2 normal heart sound present Neuro Cranial nerves: Yes Equal, round and reactive pupils present Assessment & Plan Assessment & Plan (1) Acute tonsillitis: Code(s): J03.90 - Acute tonsillitis, unspecified Plan: Today's examination shows improvement of the acute tonsillitis. Patient is afebrile, no trismus, tonsils now symmetric. There is persistent left anterior cervical adenopathy. She has developed congestion and barky cough which may indicate a 2nd viral infection. I recommended she finish all doses of Augmentin. Continue rest and increased hydration. Follow-up if symptoms worsen or fail to improve. Coding Level of Care Code Est Pt Level 3 (59062) Diagnoses Acute tonsillitis J03.90
[2023-05-16 08:35] VITALS: BP 114/70; PULSE 59; TEMP 36.3; O2SAT 99; BMI 27.0
== END 2023-05-16 09:01 | disposition home or self-care (01) ==
LOC: HO.HMGP 08:29
PROVIDERS: PCP Pediatrics; Visit Provider Physician Assistant
DX: J03.90 Acute tonsillitis, unspecified (principal)
CPT/HCPCS: 99213

== ENCOUNTER 2023-07-08 12:53 | Outpatient (AMB) | payer MEDICAID, SELFPAY ==
--- NOTE | 2023-07-08 12:57 | MHC.OFFVIS ---
Intake Intake Visit Reasons: follow up/PVR Intake Note: Patient is Present for Follow Up Urology Medication:Vitamin B6, Terazosin Antibiotic Allergies: None Blood Thinners: None PVR: 0ml Patient states she has burning sensation when she urinates. She states that she urinates twice withing an hour Allergies cat dander Allergy (Mild, Verified 07/08/23 12:58) Watery Eye feathers Allergy (Mild, Verified 07/08/23 12:58) Watery Eye mold Allergy (Mild, Verified 07/08/23 12:58) Watery Eye acetaminophen Allergy (Unknown, Verified 07/08/23 12:58) Hives tree and shrub pollen Allergy (Unknown, Verified 07/08/23 12:58) Watery Eye cockroach Allergy (Mild, Uncoded 07/08/23 12:58) Watery Eye dust mites Allergy (Mild, Uncoded 07/08/23 12:58) Watery Eye Mouse Allergy (Mild, Uncoded 07/08/23 12:58) Itchy Eyes environmental Allergy (Unknown, Uncoded 07/08/23 12:58) Watery Eye lemon, samish, citrus Allergy (Unknown, Uncoded 07/08/23 12:58) rash red apples, peaches Allergy (Unknown, Uncoded 07/08/23 12:58) hives Medication List - Last Reconciled 07/08/23 by Iron Veliz MD amoxicillin-pot clavulanate 875-125 mg 1 tab PO BID 10 days cholecalciferol (vitamin D3) (Vitamin D3) 50 mcg PO DAILY clobazam (Onfi) 20 mg qam and 30 mg qhs PO daily; clonazepam 2 mg PO ONCE PRN diazepam 12.5 mg WI ONCE PRN epinephrine 0.3 mg (0.3 mL) IM Q15M PRN famotidine 20 mg PO BID fexofenadine (Allergy Relief (fexofenadine)) 180 mg PO DAILY fluticasone propionate 50 mcg/actuation (Flonase Allergy Relief) 1 spray intranasal DAILY ibuprofen 400 mg PO Q6H PRN ketotifen fumarate 0.025%(0.035%) (Alaway) 1 drp ophthalmic (eye) BID lactobacillus combination no.4 (Probiotic) 3,000 mmu cells PO DAILY lamotrigine (Lamictal ODT) 300 mg PO DAILY magnesium 500 mg PO DAILY magnesium gluconate (Mag-G) 27 mg PO DAILY mecobalamin (vitamin B12) mcg PO melatonin 5 mg PO BEDTIME PRN mirabegron ER (Myrbetriq) 25 mg PO DAILY 30 days miscellaneous medical supply pull-ups as directed; size adult small (weight = 55.7 kg). NPI#[id number] multivitamin 1 tab PO DAILY omeprazole 20 mg PO DAILY PRN ondansetron 8 mg PO Q8H PRN polyethylene glycol 3350 (Miralax) 17 grams PO DAILY pyridoxine (vitamin B6) 100 mg PO BID riboflavin (vitamin B2) 100 mg PO BID risperidone 1 mg PO BEDTIME rizatriptan 10 mg PO sennosides (senna) 8.6 mg PO BEDTIME sertraline 100 mg PO DAILY sertraline 25 mg PO DAILY sumatriptan succinate (Imitrex) 50 mg PO ONCE PRN terazosin 1 mg PO BEDTIME 90 days trazodone 50 mg PO BEDTIME trazodone 50 mg PO zonisamide 200 mg PO DAILY HPI HPI Comments History of Present Illness Details Paola is a pleasant female. She is a patient of Dr. Weathers. She seen for the following urologic issues - neurogenic bladder - nephrolithiasis - enuresis Six month follow-up from desmopressin use for enuresis Does not think medication is working effectively Is using 2 pads per night Trial Myrbetriq for bladder emptying 2 month follow-up PVR Does state that bowel habits are improved with bowel motion every day to every other day on combination MiraLax and senna Background of cerebral palsy with epilepsy and schizoaffective disorder with autism On significant number of medications for seizure control Nephrolithiasis Imaging 02/05 4 mm left upper pole - 06/08 US with 4mm left stone 24 hour urine - 02/05 good volume, low citrate Encouraged lemon supplementation Enuresis Persistent Secondary to antiseizure medications Good response to DDAVP Neurogenic bladder Wears liners during the day Reports reasonable control Poor response to oxybutynin Does manage GI constipation with MiraLax PFSH Medical History Frequent UTI Kidney stones Schizoaffective disorder Autism Anxiety OCD (obsessive compulsive disorder) Intellectual disability Migraines Chiari malformation type I Central auditory processing disorder Bladder incontinence Cerebral palsy Seizure disorder Surgical History No pertinent past surgical history Family History Mother Substance abuse Depression Anxiety Alcohol abuse Cancer Kidney disease Seizures Asthma ADHD Father Kidney disease ADHD Social History (Updated 05/16/23 @ 08:32 by Chelsy Neal CMA) Household Members: Spouse and Other Household Members Other:: w/spouse in [place] w/e's & vacations o/w in [facility] w/ mom & sibs/foster sib Alcohol intake: never Patient Tobacco Use Status: Never used Tobacco Cognitive needs: No Hearing needs: No Vision needs: No Review of Systems Const Denies chills and Denies fever(s) Card Reports no additional complaints and Denies syncope Resp Denies cough GI Denies abdominal pain and Denies heartburn Reports as per HPI and Denies change in libido Neuro Denies syncope Psych Denies change in libido Endo Denies change in libido Physical Exam Const General: cooperative, healthy appearing, comfortable and no acute distress Orientation/consciousness: patient oriented x3 HEENT Face and sinus: Yes normal facial exam Mouth: moist mucous membranes Neck Neck: Yes normal visual inspection, Yes full ROM and Yes trachea midline Chest Chest palpation & inspection: normal inspection of the chest Resp Effort & Inspection: normal respiratory effort, able to speak in complete sentences and no respiratory distress GI Inspection: Yes normal to inspection Back/Spine/Pelvis Cervical Spine: normal cervical lordosis Thoracic/Lumbar Spine: thoracic and lumbar spine normal to inspection Skin General skin exam: no rashes or lesions noted Neuro General: patient oriented x3, gait normal, tone normal and moves all extremities Extrem General: Yes normal to inspection and Yes capillary refill normal Office Procedures Post Void Residual Post Residual Void Post Void Residual (PVR): 0 96251-Olyd Void Residual by ultrasound Results AMB Urinalysis, Automated UA Leukoctes 0 Noel/uL Last Edit by SEN Holt on 07/08/23 13:08 UA Nitrite Negative Last Edit by SEN Holt on 07/08/23 13:08 UA Urobilinogen 0.2 mg/dL Last Edit by SEN Holt on 07/08/23 13:08 UA Protein 0 mg/dL Last Edit by Lnyn Vidal, RMA on 07/08/23 13:08 UA pH 7.5 Last Edit by Lynn Vidal, RMA on 07/08/23 13:08 UA Blood 25 Jose Miguel/uL Last Edit by Lynn Vidal, RMA on 07/08/23 13:08 UA Specific Reading 1.015 Last Edit by Lynn Vidal, RMA on 07/08/23 13:08 UA Ketone Negative Last Edit by Lynn Vidal, RMA on 07/08/23 13:08 UA Bilirubin 0 mg/dL Last Edit by Lynn Vidal, RMA on 07/08/23 13:08 UA Glucose 0 mg/dL Last Edit by Lynn Vidal RMA on 07/08/23 13:08 Results Reviewed Results Reviewed: Laboratory Last Values Urine pH (Auto) 7.5 07/08/23 12:59 Specific Reading (Auto) 1.015 07/08/23 12:59 Urine Protein (Auto) 0 mg/dL 07/08/23 12:59 Glucose (UA)(Auto) 0 mg/dL 07/08/23 12:59 Urine Ketones (Auto) Negative 07/08/23 12:59 Urine Blood (Auto) 25 Jose Miguel/uL 07/08/23 12:59 Urine Nitrite (Auto) Negative 07/08/23 12:59 Urine Bilirubin (Auto) 0 mg/dL 07/08/23 12:59 Urine Urobilinogen (Auto) 0.2 mg/dL 07/08/23 12:59 Leukocyte Esterase (Auto) 0 Noel/uL 07/08/23 12:59 Assessment & Plan Assessment & Plan (1) Kidney stones: Comment: 06/08 US persistent 4mm left stone Code(s): N20.0 - Calculus of kidney (2) Enuresis: Comment: Good response to DDAVP Code(s): R32 - Unspecified urinary incontinence (3) Bladder incontinence: Code(s): R32 - Unspecified urinary incontinence Qualifiers: Urinary Incontinence type: functional incontinence Qualified Code(s): R39.81 - Functional urinary incontinence Plan Two month follow-up trial myrbetriq Orders: Orders AMB Post Void Residual by ultrasound 07/08/23 R39.81 - Functional urinary incontinence AMB Urinalysis Automated 07/08/23 Z13.9 - Encounter for screening, unspecified, N39.0 - Urinary tract infection, site not specified Medications: New mirabegron ER (Myrbetriq) 25 mg PO DAILY 30 tabs 1RF 30 days R39.15 - Urgency of urination Patient Instructions: Imaging studies, laboratory and physical exam results were discussed and reviewed in detail. No major barriers to patient understanding were identified. An opportunity to ask questions regarding the treatment plan was provided. All questions were answered. The patient expressed understanding and agreement with the above treatment plan. The patient is aware they should contact our office by phone for worsening of their current condition or the appearance of new urologic symptoms. Compliance is encouraged with any medications and followup testing that is ordered. It is a privilege to participate in the urologic care of your patient. If you have any questions or concerns regarding treatment for the above conditions, or other urologic issues, please do not hesitate to contact me. The office telephone contact is [phone]. This note is constructed using voice recognition software. While every effort has been made to ensure accuracy pet care worker errors may have been included. Yours sincerely, Dr Iron Veliz MD, [facility] - Urology Providers of Expert, Compassionate Care for the Genitourinary System Coding Level of Care Code Est Pt Level 4 (91003) Diagnoses Kidney stones N20.0 Enuresis R32 Functional urinary incontinence R39.81 Urinary Incontinence type: functional incontinence CPT Codes Post Residual Void - PVR CPT Code: 76356-Cpog Void Residual by ultrasound ([id number])
== END 2023-07-08 13:37 | disposition home or self-care (01) ==
PROVIDERS: PCP Pediatrics; Visit Provider Urology
DX: N20.0 Calculus of kidney (principal); R39.81 Functional urinary incontinence
CPT/HCPCS: 99213

== ENCOUNTER → 2023-07-08 12:53 | Outpatient (BNVA) | payer MEDICAID, SELFPAY | PROVIDERS: PCP Pediatrics; Visit Provider Urology | DX: N20.0 Calculus of kidney (principal); R32 Unspecified urinary incontinence; R39.81 Functional urinary incontinence | CPT/HCPCS: 51798; 81003; 99212 ==

== ENCOUNTER 2023-09-02 12:09 | Emergency (ER) | payer MEDICAID, SELFPAY ==
[2023-09-02 12:29] VITALS: BP 107/64; BP 115/75; PULSE 100; PULSE 97; RESP 18; TEMP 36.4; O2SAT 96; BMI 29.5
--- NOTE | 2023-09-02 13:01 | ED_ITS ---
HPI - Seizure General Chief Complaint: Seizure Stated Complaint: SEIZURE Time Seen by Provider: 09/02/23 12:25 Source: patient Mode of arrival: EMS History of Present Illness HPI Narrative: This is a 18-year-old female brought in from [facility] due to a witnessed seizure, teaching staff is at bedside and patient was in a wheelchair, no head strike. Patient denies having bitten her tongue or inside of her mouth. According to the patient she follows with Dr. Luque in [facility] and there is a plan in place for when she has the seizures that she uses at home, but she is unable to carry the medication during school and this is currently in the process of being rectified. As per EMS patient had 2 seizures and they administered midazolam intranasally upon arrival. Patient reports that she has been taking all of her medications as prescribed and denies any constitutional symptoms recently such as sore throat/fever/chills or urinary symptoms. Patient is declining all medical evaluation at this time. Seizure History: Yes Related Data Home Medications Medication Instructions Recorded Confirmed cholecalciferol (vitamin D3) 25 50 mcg PO DAILY 08/14/20 07/08/23 mcg (1,000 unit) capsule (Vitamin D3) clobazam 10 mg tablet (Onfi) See Rx Instructions PO DAILY 08/14/20 07/08/23 clonazepam 2 mg disintegrating 2 mg PO ONCE PRN seizure activity 08/14/20 07/08/23 tablet diazepam 12.5 mg-15 mg-17.5 mg-20 12.5 mg DE ONCE PRN seizure 08/14/20 07/08/23 mg rectal kit activity famotidine 20 mg tablet 20 mg PO BID 08/14/20 07/08/23 fexofenadine 180 mg tablet 180 mg PO DAILY 08/14/20 07/08/23 (Allergy Relief (fexofenadine)) fluticasone propionate 50 1 spray intranasal DAILY 08/14/20 07/08/23 mcg/actuation nasal spray,suspension (Flonase Allergy Relief) ketotifen fumarate 0.025 % (0.035 1 drp ophthalmic (eye) BID 08/14/20 07/08/23 %) eye drops (Alaway) lactobacillus combination no.4 3 3,000 mmu cells PO DAILY 08/14/20 07/08/23 billion cell capsule (Probiotic) magnesium 250 mg tablet 500 mg PO DAILY 08/14/20 07/08/23 mecobalamin (vitamin B12) 5,000 mcg PO 08/14/20 07/08/23 mcg disintegrating tablet melatonin 5 mg tablet 5 mg PO BEDTIME PRN 08/14/20 07/08/23 multivitamin 1 tab PO DAILY 08/14/20 07/08/23 omeprazole 20 mg capsule,delayed 20 mg PO DAILY PRN abdominal pain 08/14/20 07/08/23 release ondansetron 8 mg disintegrating 8 mg PO Q8H PRN nausea and vomiting 08/14/20 07/08/23 tablet polyethylene glycol 3350 17 gram 17 g PO DAILY 08/14/20 07/08/23 oral powder packet (Miralax) pyridoxine (vitamin B6) 100 mg 100 mg PO BID 08/14/20 07/08/23 tablet riboflavin (vitamin B2) 100 mg 100 mg PO BID 08/14/20 07/08/23 tablet risperidone 1 mg tablet 1 mg PO BEDTIME 08/14/20 07/08/23 sennosides 8.6 mg capsule (senna) 8.6 mg PO BEDTIME 08/14/20 07/08/23 sertraline 100 mg tablet 100 mg PO DAILY 08/14/20 07/08/23 sumatriptan succinate 50 mg tablet 50 mg PO ONCE PRN migraine headache 08/14/20 07/08/23 (Imitrex) zonisamide 50 mg capsule 200 mg PO DAILY 08/14/20 07/08/23 rizatriptan 10 mg tablet 10 mg PO 01/14/22 07/08/23 sertraline 25 mg tablet 25 mg PO DAILY 01/14/22 07/08/23 trazodone 100 mg tablet 50 mg PO BEDTIME 01/14/22 07/08/23 magnesium gluconate 27 mg 27 mg PO DAILY 05/31/22 07/08/23 magnesium (500 mg) tablet (Mag-G) trazodone 50 mg tablet 50 mg PO 05/31/22 07/08/23 lamotrigine 100 mg disintegrating 300 mg PO DAILY 01/19/23 07/08/23 tablet (Lamictal ODT) Previous Rx's Medication Instructions Recorded ibuprofen 400 mg tablet 400 mg PO Q6H PRN fever or pain 09/16/20 #90 tabs epinephrine 0.3 mg/0.3 mL 0.3 mg (0.3 mL) IM Q15M PRN 03/15/23 injection, auto-injector anaphylaxis #2 ea miscellaneous medical supply See Rx Instructions .Route 03/18/23 .COMPLEX #90 ea amoxicillin 875 mg-potassium 1 tab PO BID 10 days #20 tabs 05/05/23 clavulanate 125 mg tablet terazosin 1 mg capsule 1 mg PO BEDTIME 90 days #90 caps 06/27/23 mirabegron 25 mg tablet,extended 25 mg PO DAILY 30 days #30 tabs 07/08/23 release 24 hr (Myrbetriq) Allergies Allergy/AdvReac Type Severity Reaction Status Date / Time cat dander Allergy Mild Watery Eye Verified 09/02/23 12:27 feathers Allergy Mild Watery Eye Verified 09/02/23 12:27 mold Allergy Mild Watery Eye Verified 09/02/23 12:27 acetaminophen Allergy Unknown Hives Verified 09/02/23 12:27 tree and shrub pollen Allergy Unknown Watery Eye Verified 09/02/23 12:27 cockroach Allergy Mild Watery Eye Uncoded 09/02/23 12:27 dust mites Allergy Mild Watery Eye Uncoded 09/02/23 12:27 Mouse Allergy Mild Itchy Eyes Uncoded 09/02/23 12:27 environmental Allergy Unknown Watery Eye Uncoded 09/02/23 12:27 lemon, [place], citrus Allergy Unknown rash Uncoded 09/02/23 12:27 red apples, peaches Allergy Unknown hives Uncoded 09/02/23 12:27 Review of Systems Review of Systems: Pertinent positives and negatives as stated in HPI [facility] Past Medical History Source: nursing notes reviewed Medical History Frequent UTI Kidney stones Schizoaffective disorder Autism Anxiety OCD (obsessive compulsive disorder) Intellectual disability Migraines Chiari malformation type I Central auditory processing disorder Bladder incontinence Cerebral palsy Seizure disorder Surgical History No pertinent past surgical history Family History Family History Mother Substance abuse Depression Anxiety Alcohol abuse Cancer Kidney disease Seizures Asthma ADHD Father Kidney disease ADHD Social History Social History Household Members: Spouse and Other Household Members Other:: w/spouse in [place] w/e's & vacations o/w in [place] w/ mom & sibs/foster sib Alcohol intake: never Patient Tobacco Use Status: Never used Tobacco Smoked in Last 30 Days: No Use of substances other than those prescribed or required for medical reasons: No Advance Directives: No Advance Directives Information Provided: No Patient : No Cognitive needs: No Hearing needs: No Vision needs: No Physical Exam Vital Signs: Vital Signs: Last Vital Signs Temp 97.6 F 09/02/23 12:29 Pulse 97 09/02/23 12:29 Resp 18 09/02/23 12:29 BP 107/64 09/02/23 12:29 Pulse Ox 96 09/02/23 12:29 O2 Del Method Room Air 09/02/23 12:29 BMI result Body Mass Index 29.5 VITAL SIGNS: Reviewed. GENERAL: Well developed, well nourished, in no acute distress. HEAD: Normocephalic/atraumatic EYES: PERRLA, EOMI EARS: Ext canals without abnormality NOSE: Nares patent bilateral OROPHARYNX: no oral lesions noted, posterior pharynx clear and non-erythematous without noted tonsillar enlargement/erythema/exudates NECK: Supple, no adenopathy LUNGS: Normal breath sounds. No adventitious sounds or accessory muscle use. SpO2<96> CARDIOVASCULAR: Regular rate and rhythm without noted murmurs ABDOMEN: Soft, non-tender, non-distended with bowel sounds. MUSCULOSKELETAL: No tenderness, deformities, or effusions noted on gross inspection. EXTREMITIES: No cyanosis, clubbing or edema. SKIN: Inspection of the skin reveals no rashes NEUROLOGIC: Alert and oriented x 4. Strength and sensation to light touch were grossly intact x 4. Medical Decision Making Medical Decision Making MDM Narrative: 18-year-old female who is not noted to be postictal at this time, she denies any constitutional symptoms and states that this is simply an issue regarding her being able to carry medication to help control her seizures while at school. She states that her neurologist and mother are in the process rectifying this and otherwise stating that she feels well. Clinical exam is benign in nature there are no obvious injuries and patient is declining all laboratory evaluation. I did discuss this further with the mother who confirms the story that the patient has provided. 1416: Spoke to mom who confirms the balance between psychiatric and epilepsy conditions between 2 neurologists and the inability for the patient to self- carry. Patient has follow-up appointments with her specialist, clinical exam is without acute findings and she is otherwise discharged home. Differential Diagnosis Differential Diagnoses: The differential diagnosis associated with the presentation includes Please see the discussion above Admission/Observation Consideration of admission/observation: Escalation of care including admission/observation considered Please see the discussion above External Record Review External record reviewed: Outpatient record, Prior outpatient labs and Prior outpatient radiology Chronic Conditions Patient?s care impacted by: Other Seizure history Critical Care Time Critical Care Time Critical Care Time: Yes Total Critical Care Time: 30 Attestation: I personally attest to this time spent taking care of the patient. Discharge Plan Discharge Clinical Impression: Seizure disorder Patient Disposition: Home, Self-Care Instructions: Epilepsy (ED), Recurrent Seizures in Adults (ED) Additional Instructions: 1. Resume all home medications as prescribed. 2. Recommend that you follow-up with your specialist as scheduled. Do not hesitate to return to the emergency room for any worsening of symptoms. Prescriptions: No Action ibuprofen 400 mg tablet 400 mg PO Q6H PRN (Reason: fever or pain) Qty: 90 1RF epinephrine 0.3 mg/0.3 mL auto-injector 0.3 mg IM Q15M PRN (Reason: anaphylaxis) Qty: 2 1RF Rx Instructions: for 2 doses miscellaneous medical supply Misc See Rx Instructions .ROUTE .COMPLEX Qty: 90 11RF Rx Instructions: pull-ups as directed; size adult small (weight = 55.7 kg). NPI#[id number] terazosin 1 mg capsule 1 mg PO BEDTIME 90 Days Qty: 90 0RF clobazam [Onfi] 10 mg tablet See Rx Instructions PO DAILY Rx Instructions: 20 mg qam and 30 mg qhs PO daily; zonisamide 50 mg capsule 200 mg PO DAILY pyridoxine (vitamin B6) 100 mg tablet 100 mg PO BID clonazepam 2 mg tablet,disintegrating 2 mg PO ONCE PRN (Reason: seizure activity) diazepam 12.5-15-17.5-20 mg kit 12.5 mg DE ONCE PRN (Reason: seizure activity) sertraline 100 mg tablet 100 mg PO DAILY risperidone 1 mg tablet 1 mg PO BEDTIME melatonin 5 mg tablet 5 mg PO BEDTIME PRN omeprazole 20 mg capsule,delayed release(DR/EC) 20 mg PO DAILY PRN (Reason: abdominal pain) famotidine 20 mg tablet 20 mg PO BID polyethylene glycol 3350 [Miralax] 17 gram powder in packet 17 g PO DAILY senna 8.6 mg capsule 8.6 mg PO BEDTIME fexofenadine [Allergy Relief (fexofenadine)] 180 mg tablet 180 mg PO DAILY fluticasone propionate [Flonase Allergy Relief] 50 mcg/actuation spray,suspension 1 spray intranasal DAILY Rx Instructions: administer into each nostril ketotifen fumarate [Alaway] 0.025 % (0.035 %) drops 1 drp ophthalmic (eye) BID Rx Instructions: administer at least 8 hours apart multivitamin Tablet 1 tab PO DAILY cholecalciferol (vitamin D3) [Vitamin D3] 25 mcg (1,000 unit) capsule 50 mcg PO DAILY mecobalamin (vitamin B12) 5,000 mcg tablet,disintegrating PO Probiotic 3 billion cell capsule 3,000 mmu cells PO DAILY Rx Instructions: administer with a meal magnesium 250 mg tablet 500 mg PO DAILY riboflavin (vitamin B2) 100 mg tablet 100 mg PO BID sumatriptan succinate [Imitrex] 50 mg tablet 50 mg PO ONCE PRN (Reason: migraine headache) ondansetron 8 mg tablet,disintegrating 8 mg PO Q8H PRN (Reason: nausea and vomiting) trazodone 100 mg tablet 50 mg PO BEDTIME sertraline 25 mg tablet 25 mg PO DAILY rizatriptan 10 mg tablet 10 mg PO amoxicillin-pot clavulanate 875-125 mg tablet 1 tab PO BID 10 Days Qty: 20 0RF magnesium gluconate [Mag-G] 27 mg magnesium (500 mg) tablet 27 mg PO DAILY trazodone 50 mg tablet 50 mg PO lamotrigine [Lamictal ODT] 100 mg tablet,disintegrating 300 mg PO DAILY Myrbetriq 25 mg tablet extended release 24 hr 25 mg PO DAILY 30 Days Qty: 30 1RF Referrals: Jennifer Weathers MD [Primary Care Provider] -
--- NOTE | 2023-09-02 13:38 | PC.NURSE ---
pt continues to rest comfortably in no apparent distress. seizure pads remain in place at this time. pt refusing ekg/does not want labs drawn. pt requesting to go home. dr. carney notified/aware.
--- NOTE | 2023-09-02 14:09 | MHC.EDTECH ---
patient refuses to allow lab work and EKG done. patient will be discharged.
== END 2023-09-02 14:43 | disposition home or self-care (01) ==
PROVIDERS: Emergency Provider Student in an Organized Health Care Education/Training Program; PCP Pediatrics
DX: R56.9 Unspecified convulsions (principal)
CPT/HCPCS: 99281; 99284

== ENCOUNTER 2023-09-20 15:37 | Outpatient (AMB) | payer MEDICAID, SELFPAY ==
--- NOTE | 2023-09-20 15:39 | MHC.OFFVIS ---
Intake Intake Visit Reasons: Med Review(Myrbetriq)vm to confirm Intake Note: Patient is Present for Telephone Follow Up Med Review Urology Med: Myrbetriq, Terazosin Antibiotic Allergy: None Blood Thinner:None Allergies cat dander Allergy (Mild, Verified 09/02/23 12:27) Watery Eye feathers Allergy (Mild, Verified 09/02/23 12:27) Watery Eye mold Allergy (Mild, Verified 09/02/23 12:27) Watery Eye acetaminophen Allergy (Unknown, Verified 09/02/23 12:27) Hives tree and shrub pollen Allergy (Unknown, Verified 09/02/23 12:27) Watery Eye cockroach Allergy (Mild, Uncoded 09/02/23 12:27) Watery Eye dust mites Allergy (Mild, Uncoded 09/02/23 12:27) Watery Eye Mouse Allergy (Mild, Uncoded 09/02/23 12:27) Itchy Eyes environmental Allergy (Unknown, Uncoded 09/02/23 12:27) Watery Eye lemon, [place], citrus Allergy (Unknown, Uncoded 09/02/23 12:27) rash red apples, peaches Allergy (Unknown, Uncoded 09/02/23 12:27) hives HPI HPI Comments History of Present Illness Details Paola is a pleasant female. She is a patient of Dr. Weathers. She seen for the following urologic issues - neurogenic bladder - nephrolithiasis - enuresis Telemedicine Evaluation 15 min Consultation [employer] Dwain Video attempted Discussion with Paola and her mother Does find that uses risperidone with sertraline each evening Has bladder leakage when uses trazodone Will act to reduce fluid intake after 06:00 o'clock Also discussion of holding trazodone in order to sense urinary urge Does state that bowel habits are improved with bowel motion every day to every other day on combination MiraLax and senna Background of cerebral palsy with epilepsy and schizoaffective disorder with autism On significant number of medications for seizure control Nephrolithiasis Imaging 02/05 4 mm left upper pole - 06/08 US with 4mm left stone 24 hour urine - 02/05 good volume, low citrate Encouraged lemon supplementation Enuresis Persistent Secondary to antiseizure medications Failure of both desmopressin and Myrbetriq Neurogenic bladder Wears liners during the day Reports reasonable control Poor response to oxybutynin Does manage GI constipation with MiraLax [facility] Medical History Frequent UTI Kidney stones Schizoaffective disorder Autism Anxiety OCD (obsessive compulsive disorder) Intellectual disability Migraines Chiari malformation type I Central auditory processing disorder Bladder incontinence Cerebral palsy Seizure disorder Surgical History No pertinent past surgical history Family History Mother Substance abuse Depression Anxiety Alcohol abuse Cancer Kidney disease Seizures Asthma ADHD Father Kidney disease ADHD Social History Household Members: Spouse and Other Household Members Other:: w/spouse in [place] w/e's & vacations o/w in [employer] w/ mom & sibs/foster sib Alcohol intake: never Patient Tobacco Use Status: Never used Tobacco Cognitive needs: No Hearing needs: No Vision needs: No Review of Systems Const All systems reviewed & are unremarkable except as noted in HPI and below Reports no additional complaints Resp Reports no additional complaints GI Reports no additional complaints Reports as per HPI Musc Reports no additional complaints Physical Exam Telemedicine evaluation Appropriate responses Regular breathing rate and rhythm HEENT Head: Yes normal to inspection Ears: hearing grossly normal bilaterally Eyes General: appearance normal, both eyes and all related structures Neck Neck: Yes normal visual inspection Chest Chest palpation & inspection: normal inspection of the chest Resp Effort & Inspection: normal respiratory effort and able to speak in complete sentences Assessment & Plan Assessment & Plan (1) Frequent UTI: Code(s): N39.0 - Urinary tract infection, site not specified (2) Enuresis: Comment: Good response to DDAVP Code(s): R32 - Unspecified urinary incontinence Plan Three-month follow-up Patient Instructions: Imaging studies, laboratory and physical exam results were discussed and reviewed in detail. No major barriers to patient understanding were identified. An opportunity to ask questions regarding the treatment plan was provided. All questions were answered. The patient expressed understanding and agreement with the above treatment plan. The patient is aware they should contact our office by phone for worsening of their current condition or the appearance of new urologic symptoms. Compliance is encouraged with any medications and followup testing that is ordered. It is a privilege to participate in the urologic care of your patient. If you have any questions or concerns regarding treatment for the above conditions, or other urologic issues, please do not hesitate to contact me. The office telephone contact is [phone]. This note is constructed using voice recognition software. While every effort has been made to ensure accuracy bilingual interpreter errors may have been included. Yours sincerely, Dr Iron Veliz MD, [facility] - Urology Providers of Expert, Compassionate Care for the Genitourinary System Telehealth Telehealth Location of provider rendering services: practice address Location of patient: address on file Patient Identification confirmed using: Name, : Yes Telehealth method: video Patient verbally consented to treatment: Yes Patient verbally consented to billing insurance company: Yes Patient informed of any privacy concerns related to visit: Yes Coding Level of Care Code Tele Est Pt Level 3 (96696) Diagnoses Frequent UTI N39.0 Enuresis R32
== END 2023-09-20 16:51 | disposition home or self-care (01) ==
LOC: HO.HUSH 15:37
PROVIDERS: PCP Pediatrics; Visit Provider Urology
DX: N39.0 Urinary tract infection, site not specified (principal); R32 Unspecified urinary incontinence
CPT/HCPCS: 99213

== ENCOUNTER → 2023-09-20 15:37 | Outpatient (BNVA) | payer MEDICAID, SELFPAY | PROVIDERS: PCP Pediatrics; Visit Provider Urology ==

== ENCOUNTER 2024-02-16 10:12 | Outpatient (AMB) | payer OTHER, SELFPAY ==
--- NOTE | 2024-02-16 10:13 | MHC.OFFVIS ---
Intake Visit Reasons: 3 month follow up- Enuresis Intake Note: Patient is Present for Telephone Follow Up For Urology Med: Terazosin, Myrbetriq, Vitamin B6 Antibiotic Allergy: nONE Blood Thinner:None Maintenance Mechanic Required: No Allergies cat dander Allergy (Mild, Verified 03/28/24 09:11) Watery Eye feathers Allergy (Mild, Verified 03/28/24 09:11) Watery Eye mold Allergy (Mild, Verified 03/28/24 09:11) Watery Eye acetaminophen Allergy (Unknown, Verified 03/28/24 09:11) Hives tree and shrub pollen Allergy (Unknown, Verified 03/28/24 09:11) Watery Eye cockroach Allergy (Mild, Uncoded 03/28/24 09:11) Watery Eye dust mites Allergy (Mild, Uncoded 03/28/24 09:11) Watery Eye Mouse Allergy (Mild, Uncoded 03/28/24 09:11) Itchy Eyes environmental Allergy (Unknown, Uncoded 03/28/24 09:11) Watery Eye lemon, [place], citrus Allergy (Unknown, Uncoded 03/28/24 09:11) rash red apples, peaches Allergy (Unknown, Uncoded 03/28/24 09:11) hives HPI Comments Details: Paola is a pleasant female. She is a patient of Dr. Weathers. She seen for the following urologic issues - neurogenic bladder - nephrolithiasis - enuresis Telemedicine Evaluation 15 min Consultation [employer] Dwain Video attempted Using Myrbetriq with some benefit Does find that uses risperidone with sertraline each evening Has bladder leakage when uses trazodone Will act to reduce fluid intake after 06:00 o'clock Also discussion of holding trazodone in order to sense urinary urge Does state that bowel habits are improved with bowel motion every day to every other day on combination MiraLax and senna Background of cerebral palsy with epilepsy and schizoaffective disorder with autism On significant number of medications for seizure control Nephrolithiasis Imaging 02/05 4 mm left upper pole - 06/08 US with 4mm left stone 24 hour urine - 02/05 good volume, low citrate Encouraged lemon supplementation Enuresis Persistent Secondary to antiseizure medications Failure of both desmopressin and Myrbetriq Behavioral modification regarding fluid intake is mainstay of management Neurogenic bladder Wears liners during the day Reports reasonable control Poor response to oxybutynin Does manage GI constipation with MiraLax PFSH Medical History (Updated 03/28/24 @ 14:55 by Jennifer Weathers MD) Frequent UTI Kidney stones Schizoaffective disorder Autism Anxiety OCD (obsessive compulsive disorder) Intellectual disability Migraines Chiari malformation type I Central auditory processing disorder Bladder incontinence Cerebral palsy Seizure disorder Surgical History No pertinent past surgical history Family History Mother Substance abuse Depression Anxiety Alcohol abuse Cancer Kidney disease Seizures Asthma ADHD Father Kidney disease ADHD Social History Household Members: Spouse and Other Household Members Other:: w/spouse in [place] w/e's & vacations o/w in [facility] w/ mom & sibs/foster sib Alcohol intake: never Patient Tobacco Use Status: Never used Tobacco Cognitive needs: No Hearing needs: No Vision needs: No Review of Systems Const All systems reviewed & are unremarkable except as noted in HPI and below Reports no additional complaints Resp Reports no additional complaints GI Reports no additional complaints Reports as per HPI Musc Reports no additional complaints Physical Exam Telemedicine evaluation Appropriate responses Regular breathing rate and rhythm HEENT Head: Yes normal to inspection Ears: hearing grossly normal bilaterally Eyes General: appearance normal, both eyes and all related structures Neck Neck: Yes normal visual inspection Chest Chest palpation & inspection: normal inspection of the chest Resp Effort & Inspection: normal respiratory effort and able to speak in complete sentences Telehealth Telehealth Telehealth Platform: [facility] Location of provider rendering services: practice address Location of patient: address on file Patient Identification confirmed using: Name, : Yes Telehealth method: video Patient verbally consented to treatment: Yes Patient verbally consented to billing insurance company: Yes Patient informed of any privacy concerns related to visit: Yes Minutes spent on Phone/Video with Pt.: 15 Assessment & Plan Assessment & Plan (1) Bladder incontinence: Code(s): R32 - Unspecified urinary incontinence Category: Medical Qualifiers: Urinary Incontinence type: functional incontinence Qualified Code(s): R39.81 - Functional urinary incontinence (2) Kidney stones: Comment: 06/08 persistent 4mm left stone Code(s): N20.0 - Calculus of kidney Category: Medical (3) Enuresis: Comment: Good response to DDAVP Code(s): R32 - Unspecified urinary incontinence Category: Medical Plan Six-month follow-up tele Medications: Discontinued mirabegron ER Discontinued Reason: Patient Completed Course 25 mg PO DAILY 30 days 30 tabs 1RF R39.15 - Urgency of urination Patient Instructions: Imaging studies, laboratory and physical exam results were discussed and reviewed in detail. No major barriers to patient understanding were identified. An opportunity to ask questions regarding the treatment plan was provided. All questions were answered. The patient expressed understanding and agreement with the above treatment plan. The patient is aware they should contact our office by phone for worsening of their current condition or the appearance of new urologic symptoms. Compliance is encouraged with any medications and followup testing that is ordered. It is a privilege to participate in the urologic care of your patient. If you have any questions or concerns regarding treatment for the above conditions, or other urologic issues, please do not hesitate to contact me. The office telephone contact is [phone]. This note is constructed using voice recognition software. While every effort has been made to ensure accuracy senior investigator errors may have been included. Yours sincerely, Dr Iron Veliz MD, [facility] - Urology Providers of Expert, Compassionate Care for the Genitourinary System Coding Level of Care Code Tele Est Pt Level 3 (57888) Diagnoses Functional urinary incontinence R39.81 Urinary Incontinence type: functional incontinence Kidney stones N20.0 Enuresis R32
== END 2024-02-16 11:02 | disposition home or self-care (01) ==
LOC: HO.HUSH 10:13
PROVIDERS: PCP Pediatrics; Visit Provider Urology
DX: R39.81 Functional urinary incontinence (principal); N20.0 Calculus of kidney; R32 Unspecified urinary incontinence
CPT/HCPCS: 99213

== ENCOUNTER → 2024-02-16 10:12 | Outpatient (BNVA) | payer MEDICAID, SELFPAY | PROVIDERS: PCP Pediatrics; Visit Provider Urology ==

== ENCOUNTER 2024-03-28 09:10 | Outpatient (AMB) | payer OTHER, SELFPAY ==
--- NOTE | 2024-03-28 09:11 | MHC.AMWC20YF ---
Vital Signs 03/28/24 09:23 Height 4 ft 11.45 in Height percentile 3 Weight 152 lb 2 oz Weight percentile 90 BMI 30.3 BMI percentile 95 Temp 98.3 F Temp Source Oral Pulse 68 Pulse Source Pulse Oximeter BP 104/62 Pulse Oximetry (%) 99 Pediatric Intake Visit Reasons: [facility] 18 year female Varnish Remover Required: No Accompanied by: Mother Allergies cat dander Allergy (Mild, Verified 03/28/24 09:11) Watery Eye feathers Allergy (Mild, Verified 03/28/24 09:11) Watery Eye mold Allergy (Mild, Verified 03/28/24 09:11) Watery Eye acetaminophen Allergy (Unknown, Verified 03/28/24 09:11) Hives tree and shrub pollen Allergy (Unknown, Verified 03/28/24 09:11) Watery Eye cockroach Allergy (Mild, Uncoded 03/28/24 09:11) Watery Eye dust mites Allergy (Mild, Uncoded 03/28/24 09:11) Watery Eye Mouse Allergy (Mild, Uncoded 03/28/24 09:11) Itchy Eyes environmental Allergy (Unknown, Uncoded 03/28/24 09:11) Watery Eye lemon, duckwater, citrus Allergy (Unknown, Uncoded 03/28/24 09:11) rash red apples, peaches Allergy (Unknown, Uncoded 03/28/24 09:11) hives Medication List - Last Reconciled 03/28/24 by Jennifer Weathers MD cholecalciferol (vitamin D3) (Vitamin D3) 50 mcg PO DAILY clobazam (Onfi) 20 mg qam and 30 mg qhs PO daily; clonazepam 2 mg PO ONCE PRN diazepam 12.5 mg WI ONCE PRN epinephrine 0.3 mg (0.3 mL) IM Q15M PRN famotidine 20 mg PO BID fexofenadine (Allergy Relief (fexofenadine)) 180 mg PO DAILY fluticasone propionate 50 mcg/actuation (Flonase Allergy Relief) 1 spray intranasal DAILY ibuprofen 400 mg PO Q6H PRN ketotifen fumarate 0.025%(0.035%) (Alaway) 1 drp ophthalmic (eye) BID lactobacillus combination no.4 (Probiotic) 3,000 mmu cells PO DAILY lamotrigine (Lamictal ODT) 300 mg PO DAILY magnesium 500 mg PO DAILY magnesium gluconate (Mag-G) 27 mg PO DAILY mecobalamin (vitamin B12) mcg PO melatonin 5 mg PO BEDTIME PRN miscellaneous medical supply pull-ups as directed; size adult small (weight = 55.7 kg). NPI#[id number] multivitamin 1 tab PO DAILY omeprazole 20 mg PO DAILY PRN ondansetron 8 mg PO Q8H PRN polyethylene glycol 3350 (Miralax) 17 grams PO DAILY riboflavin (vitamin B2) 100 mg PO BID risperidone 1 mg PO BEDTIME rizatriptan 10 mg PO sennosides (senna) 8.6 mg PO BEDTIME sertraline 100 mg PO DAILY sertraline 25 mg PO DAILY sumatriptan succinate (Imitrex) 50 mg PO ONCE PRN terazosin 1 mg PO BEDTIME 90 days trazodone 50 mg PO BEDTIME trazodone 50 mg PO [wheelchair As directed] zonisamide 200 mg PO DAILY [facility] 18-21 Year Female Complex pt 1) seizures - sees neuro at [facility]. 2) migraines 3) sees [facility] for irregular menses - is on depo 4) galactorrhea d/t meds. sees endocrine 5) CP. was seen at [facility] for this - has orthotics that no longer fit and are very uncomfortable. has trouble walking and fatigues very easily and now uses wheelchair often. [facility] discharged her due to her age and gave her name of medical supply co for new orthotics but they need an rx. [facility] did not give recommendation for new provider for this. also needs new wheelchair - has rx for us for this and has an appt next month. 6) OCD/Anxiety/schizoaffective d/o. sees psych at [facility]. 7) autism- has services through [facility]. 8) hearing and vision impairments - [facility]. has glasses and hearing aids. 9) incontinence - uses attends underwear. now living in [place]. still engaged. Nutrition some days are better than other days diet overall balanced. doesnt eat a lot of fruit but loves vegetables. likes apples with caramel sauce. reacts to red apples but not green apples Exercise Sports and activities: Reports watches <2 hours of screen time daily Genitourinary Bowel movements: abnormal (constipation. sees GI) Genitourinary: LMP known (2 weeks ago. menses are irregular. she is on depo. has spotting or a full period q2-4 weeks. ) Dental Dental care: Reports receives dental care Behavioral mood is stable. sees psych at [facility] for meds and adjustment counselor at school. Educational/Employment attended [employer] [facility] through [facility] and [facility]. trying for 2 classes this semester (took 1 last year). digital photography and ceramics- but ceramics is not working out d/t issues with textures. will probably drop and audit a different class instead. 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 sexual history: currently sexually active Sleep does not sleep well. trouble fallin asleep and has frequent waking also. takes trazodone at bedtime. Safety Car safety: well child 16-17 years: seat belt Home Safety: Has poison control number, Water heater temp <120, Working smoke detector in home, Working carbon monoxide detector in home and Fire Extinguisher in home [facility] Substance Abuse Tobacco History Patient Tobacco Use Status: Never used Tobacco Alcohol History Alcohol intake: never PENDING SALE TO [facility] Medical History (Updated 03/28/24 @ 14:55 by Jennifer Weathers MD) Frequent UTI Kidney stones Schizoaffective disorder Autism Anxiety OCD (obsessive compulsive disorder) Intellectual disability Migraines Chiari malformation type I Central auditory processing disorder Bladder incontinence Cerebral palsy Seizure disorder Surgical History No pertinent past surgical history Family History Mother Substance abuse Depression Anxiety Alcohol abuse Cancer Kidney disease Seizures Asthma ADHD Father Kidney disease ADHD Social History Household Members: Spouse and Other Household Members Other:: [place] in [place] w/e's & vacations o/w in [facility] w/ mom & sibs/foster sib Alcohol intake: never Patient Tobacco Use Status: Never used Tobacco Cognitive needs: No Hearing needs: No Vision needs: No CRAFFT Screening Tool PART A: In the PAST 12 MONTHS, did you: Drink any alcohol (more than few sips)? (Do not count sips of alcohol taken during family or jewish events.): No Smoke any marijuana or hashish?: No Use anything else to get high? (includes illegal drugs, over the counter/prescription drugs, or things that you sniff/rios?): No PART B: If answered YES to ANY above: Have you ever been in a CAR driven by someone (including yourself) who was high or had been using alcohol or drugs?: No Do you ever use alcohol or drugs to RELAX, feel better about yourself, or fit in?: No Do you ever use alcohol or drugs while you are by yourself, or ALONE?: No Do you ever FORGET things while using alcohol or drugs?: No Do your FAMILY or FRIENDS ever tell you that you should cut down on your drinking or drug use?: No Have you ever gotten into TROUBLE while you were using alcohol or drugs?: No CRAFFT Assessment Charge Crafft: VIJAY 25952 PHQ-9 Over the last 2 weeks, how often have you been bothered by any of the following problems? 1. Little interest or pleasure in doing things: more than half the days 2. Feeling down, depressed, or hopeless: several days 3. Trouble falling or staying asleep, or sleeping too much: nearly every day 4. Feeling tired or having little energy: several days 5. Poor appetite or overeating: more than half the days 6. Feeling bad about yourself - or that you are a failure or have let yourself or your family down: not at all 7. Trouble concentrating on things, such as reading the newspaper or watching television: not at all 8. Moving or speaking so slowly that other people could have noticed. Or the opposite - being so fidgety or restless that you have been moving around a lot more than usual: not at all 9. Thoughts that you would be better off or of hurting yourself in some way: not at all Total score: 9 Depression Screening Interpretation: Positive Depression Screening Follow-up: Existing condition and In treatment Depression Screening Done: Yes 92892 - PHQ-9 Billing: Yes Source: Developed by Drs. Christiano Boyle, Pamela B.W. Rich Moreira and colleagues, with an educational avinash from [employer]. Assessment & Plan Assessment & Plan (1) Well adult on routine health check: Code(s): Z00.00 - Encounter for general adult medical examination without abnormal findings Plan: Discussed age-appropriate AG including peer relationships/peer pressure, family relationships, abstinence/safe sex, healthy relationships/sexuality, internet safety, drug/alcohol/cigarette/vaping/marijuana avoidance, sleep, healthy diet, importance of daily physical activity, mood, stress management, conflict management, driving safety, seatbelt use, dental health, future plans due to age unable to provide vaccines today. advised [facility] for covid and flu boosters. also discussed transition to adult medicine - she would like to go to [place]. (2) Cerebral palsy: Code(s): G80.9 - Cerebral palsy, unspecified Category: Medical Plan: discussed options for new ortho. [facility] Orders: Referrals Orthopedics Referral G80.9 - Cerebral palsy, unspecified Coding Level of Care Code Est Pt Prev Care 18-39y(14342) Diagnoses Well adult on routine health check Z00.00 Cerebral palsy G80.9 Additional Codes CRAFFT Assessment Charge - Crafft: CRAFFT 19892 ([id number]) MERE-7 Assessment Billing - MERE-7 Assessment Tool: MERE-7 Assessment 21804 ([id number]) Thrive Questionnaire Date Thrive assessed: 03/28/24 I am a: Patient What is your living situation today?: I have a steady place to live Within the past 12 months, did the food you bought not last and you didn't have the money to get more?: Never true Within the past 12 months, did you worry whether your food would run out before you got money to buy more?: Never true Do you have trouble paying for medicines?: No Do you have trouble getting transportation to medical appointments?: No Do you have trouble paying your heating and electricity bill?: No Do you have trouble taking care of your child, family member or friend?: No Do you have trouble with day-to-day activities such as bathing, preparing meals, shopping, managing finances, etc.?: Yes THRIVE Score: 0 MERE-7 AMB Questionnaire MERE-7 Date MERE - 7 assessed: 09/11/24 Feeling nervous, anxious, or on edge: 2 = More than half the days Not being able to stop or control worryin = Nearly every day Worrying too much about different things: 3 = Nearly every day Trouble relaxin = Several days Being so restless that it is hard to sit still: 1 = Several days Becoming easily annoyed or irritable: 2 = More than half the days Feeling afraid as if something awful might happen: 2 = More than half the days Total MERE-7 score (0-4 normal; 5-9 mild; 10-14 moderate; 15-21 severe): 14 Source: Developed by Drs. Christiano Boyle, Pamela Moreira, Rich Mendze and colleagues, with an educational avinash from [employer] MERE-7 Assessment Billing MERE-7 Assessment Tool: MERE-7 Assessment 99426
[2024-03-28 09:23] VITALS: BP 104/62; PULSE 68; TEMP 36.8; O2SAT 99; BMI 30.3
== END 2024-03-28 10:13 | disposition home or self-care (01) ==
PROVIDERS: PCP Pediatrics; Visit Provider Pediatrics
DX: Z00.00 Encounter for general adult medical examination without abnormal findings (principal); G80.9 Cerebral palsy, unspecified; F25.9 Schizoaffective disorder, unspecified; F84.0 Autistic disorder; F41.9 Anxiety disorder, unspecified; Z13.30 Encounter for screening examination for mental health and behavioral disorders, unspecified
CPT/HCPCS: 96127; 96160; 99395; S0302

== ENCOUNTER 2024-09-12 13:34 | Outpatient (AMB) | payer OTHER, SELFPAY ==
--- NOTE | 2024-09-12 13:36 | MHC.OFVISPED ---
Pediatric Intake Visit Reasons: TH-Discuss SS disability [id number] Allergies cat dander Allergy (Mild, Verified 03/28/24 09:11) Watery Eye feathers Allergy (Mild, Verified 03/28/24 09:11) Watery Eye mold Allergy (Mild, Verified 03/28/24 09:11) Watery Eye acetaminophen Allergy (Unknown, Verified 03/28/24 09:11) Hives tree and shrub pollen Allergy (Unknown, Verified 03/28/24 09:11) Watery Eye cockroach Allergy (Mild, Uncoded 03/28/24 09:11) Watery Eye dust mites Allergy (Mild, Uncoded 03/28/24 09:11) Watery Eye Mouse Allergy (Mild, Uncoded 03/28/24 09:11) Itchy Eyes environmental Allergy (Unknown, Uncoded 03/28/24 09:11) Watery Eye lemon, [place], citrus Allergy (Unknown, Uncoded 03/28/24 09:11) rash red apples, peaches Allergy (Unknown, Uncoded 03/28/24 09:11) hives HPI HPI TH-Discuss disability [id number]: Details: History of Present Illness 1) recently had application for disability rejected. she and mom are both surprised by this given the complexity of her medical dx. 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 Mom is especially frustrated because she is doing all of the work for this because Paola cannot comprehend the information needed to complete all of the forms that are required for this application. Mom reports that Paola has had significant cognitive decline over the years, this is thought to be due to her very slow processing speed which has worsened over time. Most likely this is a result of intractable epilepsy and frequent seizures. She has not been able to learn how to drive a car and she cannot process information with any degree of complexity and requires substantial support for all financial and executive function decisions and processes. 2) left ear discomfort - tympanic membrane photographs via portal for review today. The discomfort has coincided with symptoms of congestion and sinus pressure due to a recent cold, approximately one week in duration, which has been managed with Tylenol and ibuprofen. The patient is negative for COVID-19 and influenza, despite family members' positive tests for influenza A and her exposure to these. 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 She had to be seen by several dentists and then do extended TMJ therapy to see if this would help. 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 Patient was informed and verbally consented to the use of an ambient scribe for clinic note documentation during this visit. [facility] Medical History Frequent UTI Kidney stones Schizoaffective disorder Autism Anxiety OCD (obsessive compulsive disorder) Intellectual disability Migraines Chiari malformation type I Central auditory processing disorder Bladder incontinence Cerebral palsy Seizure disorder Surgical History No pertinent past surgical history Family History Mother Substance abuse Depression Anxiety Alcohol abuse Cancer Kidney disease Seizures Asthma ADHD Father Kidney disease ADHD Social History Household Members: Spouse and Other Household Members Other:: w/spouse in [place] w/e's & vacations o/w in [facility] w/ mom & sibs/foster sib Alcohol intake: never Patient Tobacco Use Status: Never used Tobacco Cognitive needs: No Hearing needs: No Vision needs: No Review of Systems Const Reports as per HPI ENT Reports as per HPI Resp Reports as per HPI GI Reports as per HPI Pediatric Exam Const Other: throughout visit Paola is pleasant and cooperative. she defers to mom to answer 90% of the questions asked, and looked at mom for clarification of all questions were was not very straightforward. Specifically, when obtaining consent for ambient scribe, Paola looked to mom to explain the question, and clearly still did not comprehend. She ultimately asked mom if she should consent. Constitutional General: no acute distress HENMT Other: photo of TM c/w effusion and retracted TM without AOM. some EAC tenderness of left. she wears hearing aids. Resp Effort & Inspection: normal respiratory effort Telehealth Telehealth Telehealth Platform: [facility] Location of provider rendering services: other Location of patient: address on file Patient Identification confirmed using: Name, : Yes Telehealth method: video Patient verbally consented to treatment: Yes Patient verbally consented to billing insurance company: Yes Patient informed of any privacy concerns related to visit: Yes Minutes spent on Phone/Video with Pt.: 25 Assessment & Plan Assessment & Plan (1) Acute serous otitis media of left ear without rupture: Code(s): H65.02 - Acute serous otitis media, left ear Plan: advised saline and sx care with f/u prn new or worsening sxs (2) Otitis externa: Code(s): H60.90 - Unspecified otitis externa, unspecified ear Plan: oflox as prescribed (3) Jaw asymmetry: Code(s): M26.12 - Other jaw asymmetry Plan: f/u [facility] oral surgeon (4) Intellectual disability: Comment: FSIQ=72) Code(s): F79 - Unspecified intellectual disabilities Category: Medical (5) Seizure disorder: Code(s): G40.909 - Epilepsy, unspecified, not intractable, without status epilepticus Category: Medical (6) Cerebral palsy: Code(s): G80.9 - Cerebral palsy, unspecified Category: Medical (7) Central auditory processing disorder: Code(s): H93.25 - Central auditory processing disorder Category: Medical Plan Discussion Notes Discussions centered around the management of Paola's Eustachian Tube Dysfunction with symptom observation, nasal sprays, and analgesics. We also discussed the ongoing appeal for disability considering her epilepsy and cognitive decline, with comprehensive records needed. There is anticipation of potential diagnostic input or documentation requests concerning the appeal. I advised Paola and mom to contact office for any supporting documents needed Patient Instructions - Use saline nasal spray and Tylenol or ibuprofen to manage congestion and ear discomfort. - Monitor for any worsening of ear symptoms and report if redness or swelling occurs. - Attend scheduled specialist appointment for TMJ disorder evaluation. - Continue follow-up on disability appeal process; provide all required documentation. - Maintain awareness of any cognitive challenges impacting daily tasks. - Stay informed of updates from medical consultations and note any interventions. - Keep records comprehensively documented for further appeal support if necessary. total visit time = 40 minutes including time spent obtaining history, examining patient, discussing assessment and plan, ordering medications, and documentation. Medications: New ofloxacin 0.3% 10 drps otic (ear) left DAILY 7 days 5 mL 0RF Coding Level of Care Code Tele Est Pt Level 4 (87244) Diagnoses Acute serous otitis media of left ear without rupture H65.02 Otitis externa H60.90 Jaw asymmetry M26.12 Intellectual disability F79 Seizure disorder G40.909 Cerebral palsy G80.9 Central auditory processing disorder H93.25
--- OUTSIDE RECORDS SUMMARY | 2024-09-12 16:41 | XMS_ITS | Encounter Summary ---
Author Organization [facility] Address [address] [place] [address] Care Team Providers Care Electronics Manufacturer Name Role Phone Jennifer Weathers MD Primary Care Provider [phone] Reason for Visit * Reason Comments Medication Refill Encounter Details Date Type Department Care Team (Late st Contact Info) Description 01/01/2020 Refill [facility]astroenter[facility] [id number] Olga Terrell MD [address] [place] [id number] Gastroesophageal reflux disease, esophagitis presence not specified Social History Tobacco Use Types Packs/Day Years Used Date Smoking Tobacco: Never Smokeless Tobacco: Never Comments Unknown Sex and Gender Information Value Date Recorded Sex Assigned at Not on file Legal Sex Female 2:11 PM EST Gender Identity Not on file Sexual Orientation Not on file documented as of this encounter Miscellaneous Notes * Telephone Encounter - Yue Boo RN - 01/01/2020 1:52 PM EDT Last visit: 10/05/2019 Next visit: Needs a follow up appt. Will send to [facility] to book Weight: 54.7 kg Allergies: reviewed Current dose: Omeprazole 20 mg - 1 cap daily. Spoke with mom and she had to go back on the omeprazole due to having symptoms of reflux again. documented in this encounter Plan of Treatment Upcoming Encounters Date Type Department Care Team (Late st Contact Info) Description 10/19/2024 11:30 AM EDT Office Visit [facility] G[facility], [address] [place] [address] Olga Terrell MD [address] [place] [address] documented as of this encounter Visit Diagnoses Diagnosis Gastroesophageal reflux disease, esophagitis presence not specified documented in this encounter Care Teams Electronics Manufacturer Relationship Specialty Start Date End Date Jennifer Weathers MD [address] [place] [address] PCP - General 08/15/19 documented as of this encounter
--- OUTSIDE RECORDS SUMMARY | 2024-09-12 16:41 | XMS_ITS | Encounter Summary ---
Author Organization [facility] Address [address] [place] [address] Phone Care Team Providers Care Drawing Operator Name Role Phone Jasiel Jennifer Primary Care Provider [phone] Encounter Details Date Type Department Care Team (Late st Contact Info) Description 05/28/2015 Conversion Encounter [facility] - [address] [address] Social History Tobacco Use Types Packs/Day Years Used Date Smoking Tobacco: Never Assessed Comments Unknown Sex and Gender Information Value Date Recorded Sex Assigned at Not on file Legal Sex Female 6:43 PM EDT Gender Identity Not on file Sexual Orientation Not on file documented as of this encounter Plan of Treatment Not on file documented as of this encounter Visit Diagnoses Not on filedocumented in this encounter Care Teams Drawing Operator Relationship Specialty Start Date End Date Jennifer Weathers [address] [place] [address] PCP - General 11/23/17 documented as of this encounter
--- OUTSIDE RECORDS SUMMARY | 2024-09-12 16:41 | XMS_ITS | Clinical Summary ---
Author Organization [facility], Address [address] [place] [address] [place] [address] Phone Care Team Providers Care Space Planner Name Role Phone Jennifer Weathers MD Primary Care Provider [phone] Allergies Active Allergy Reactions Criticality Noted Date Comments Acetaminophen 10/05/2018 Drug interaction Drug interaction Apple Juice 04/28/2017 Vomiting with apple and rash Nausea with red apples that are fresh, can eat processed and fresh green apples Nausea with red apples that are fresh, can eat processed and fresh green apples Nausea with red apples that are fresh, can eat processed and fresh green apples Cat Dander 12/23/2020 Codeine 12/12/2019 Gluten Meal 12/12/2019 Molds & Smuts 12/23/2020 Pineapple 12/12/2019 Prunus Persica Hives,Other (see comments) 04/28/2017 Fresh peach causes contact hives. Able to eat processed Fresh peach causes contact hives. Able to eat processed Fresh peach causes contact hives. Able to eat processed Medications Cholecalciferol (VITAMIN D) 50 MCG (2000 UT) capsule Take 2,000 Units by mouth 1 (one) time each day Active CLOBAZAM PO Take TWO tablets every morning and THREE tablets every evening Active cyancobalamine (VITAMIN B-12) 500 MCG tablet Take 500 mcg by mouth 1 (one) time each day Active cyproheptadine (PERIACTIN) 4 MG tablet Take 8 mg by mouth at bed time Active fexofenadine (BABATUNDE) 180 MG tablet Take 180 mg by mouth 1 (one) time each day Active fluticasone (FLONASE) 50 MCG/ACT nasal spray Administer 1 spray into each nostril 1 (one) time each day Active lamoTRIgine (LaMICtal) 200 MG tablet Take 400 mg by mouth twice a day Active LEVONORGESTREL IU 52 mg by Intrauterine route 1 (one) time Active magnesium gluconate (MAGONATE) 500 MG tablet Take 500 mg by mouth 1 (one) time each day Active Multiple Vitamin (MULTIVITAMIN) tablet Take 1 tablet by mouth 1 (one) time each day Active pyridoxine (B-6) 100 MG tablet Take 100 mg by mouth twice a day Active Riboflavin 100 MG tablet Take 100 mg by mouth twice a day Active risperiDONE (RisperDAL) 0.5 MG tablet Take 0.5 mg by mouth 1 (one) time each day Active sertraline (ZOLOFT) 100 MG tablet Take 100 mg by mouth at bed time Active traZODone (DESYREL) 50 MG tablet Take 50 mg by mouth every night Active Active Problems Problem Noted Date Diagnosed Date Autistic disorder 01/02/2021 Overview (01/02/2021): level I Nephrolithiasis 12/12/2019 Recurrent urinary tract infection Periumbilical pain Other abnormal clinical findings Overview (12/12/2019): asymptomatic left-sided parenchymal kidney stone Dysfunction of urinary bladder Immunizations Name Administration Dates Next Due DTaP 5 06/12/2007, 5,2003,10/10 Hep A, 2 Dose 10/23/2015 Hep B, Adolescent or Pediatric 03/05/2004,2002,2003 Hib (PRP-T) 09/04/2004, 4,2003,08/12 IPV 06/12/2007, 4,2003,08/06 Influenza, Quadrivalent, Pre servative Free 05/28/2015 MMR 09/04/2004 MMRV 06/12/2007 Meningococcal MCV4P 10/23/2015 Pneumococcal Conjugate 09/04/2004,2003,2003,08/06 Pneumococcal Conjugate 13-Valent 09/04/2004 Tdap 10/23/2015 Varicella 2004 Social History Tobacco Use Types Packs/Day Years Used Date Smoking Tobacco: Never Alcohol Use Standard Drinks/Week Comments No 0 (1 standard drink = 0.6 oz pur e alcohol) Comments Unknown Sex and Gender Information Value Date Recorded Sex Assigned at Not on file Legal Sex Female 4:30 PM EST Gender Identity Not on file Sexual Orientation Not on file Last Filed Vital Signs Vital Sign Reading Time Taken Comments Blood Pressure 114/70 01/02/2021 11:17 PM EDT Pulse - - Temperature - - Respiratory Rate - - Oxygen Saturation - - Inhaled Oxygen Concentration - - Weight - - Height - - Body Mass Index - - Plan of Treatment Health Maintenance Due Date Last Done Comments Influenza Vaccine (#1) 2024 05/28/2015 Hepatitis B Vaccine Completed 03/05/2004, 2003, 2003 Pneumococcal Vaccine: Pediatrics (0 to 5 Years) and At-Risk Patients (6 to 64 Years) Aged Out 09/04/2004, 09/04/2004, 2004, Additional history exists No longer eligible based on patient's age to complete this topic Insurance MEDICAID [place] Care Teams Space Planner Relationship Specialty Start Date End Date Jennifer Weathers MD [address] [place] [address] PCP - General 05/22/19
--- OUTSIDE RECORDS SUMMARY | 2024-09-12 16:41 | XMS_ITS | Encounter Summary ---
Author Organization [facility] Address [address] [place] [address] Care Team Providers Care Electrophysiology Scientist Name Role Phone Jennifer Weathers MD Primary Care Provider [phone] Reason for Visit * Reason Comments Medication Refill Encounter Details Date Type Department Care Team (Late st Contact Info) Description 06/21/[address] [phone] Olga Terrell MD [address] [place] [phone] Gastro-esophageal reflux disease without esophagitis Social History Tobacco Use Types Packs/Day Years Used Date Smoking Tobacco: Never Smokeless Tobacco: Never Comments No Sex and Gender Information Value Date Recorded Sex Assigned at Not on file Legal Sex Female 2:11 PM EST Gender Identity Not on file Sexual Orientation Not on file documented as of this encounter Miscellaneous Notes * Telephone Encounter - Joaquina Jessica RN - 06/21/2022 3:37 PM EST Last seen clinic 04-20-22 Dose correct Next appt 10-19-22 documented in this encounter Plan of Treatment Upcoming Encounters Date Type Department Care Team (Late st Contact Info) Description 10/19/2024 11:30 AM EDT [facility] [address] [place] [address] Olga Terrell MD [address] [place] [address] documented as of this encounter Visit Diagnoses Diagnosis Gastro-esophageal reflux disease without esophagitis documented in this encounter Care Teams Electrophysiology Scientist Relationship Specialty Start Date End Date Jennifer Weathers MD [address] [place] [id number] PCP - General 08/15/19 documented as of this encounter
--- OUTSIDE RECORDS SUMMARY | 2024-09-12 16:41 | XMS_ITS | Encounter Summary ---
Author Organization [facility] Address [address] [place] [address] Care Team Providers Care Java Lead Architect Name Role Phone Jennifer Weathers MD Primary Care Provider [phone] Reason for Visit * Reason Comments Medication Refill Encounter Details Date Type Department Care Team (Late st Contact Info) Description 11/28/2019 Refill [facility] Gastroenterology[address] [phone] Olga Terrell MD [address] [place] [address] Constipation, unspecified constipation type Social History Tobacco Use Types Packs/Day Years Used Date Smoking Tobacco: Never Smokeless Tobacco: Never Comments Unknown Sex and Gender Information Value Date Recorded Sex Assigned at Not on file Legal Sex Female 2:11 PM EST Gender Identity Not on file Sexual Orientation Not on file documented as of this encounter Miscellaneous Notes * Telephone Encounter - Yue Boo RN - 11/28/2019 9:45 AM EDT Last visit: 10/05/2019 Next visit: no follow up booked at this time. Needs a follow up for 2-3 months since last appt 10/05/19 Weight: 54.7 kg Allergies: reviewed Current dose: Last appt stated she was not on the dulcolax Lithographic Plate Maker Apprentice called mom and she stated they are NOT on Dulcolax. Refuse med please * Telephone Encounter - Joaquina Jessica RN - 11/28/2019 9:25 AM EDT Per chart not taking? documented in this encounter Plan of Treatment Upcoming Encounters Date Type Department Care Team (Late st Contact Info) Description 10/19/2024 11:30 AM EDT Office Visit [facility] G[facility]enterology, [place] [address] [place] [address] Olga Terrell MD [address] [place] [address] documented as of this encounter Visit Diagnoses Diagnosis Constipation, unspecified constipation type documented in this encounter Care Teams Java Lead Architect Relationship Specialty Start Date End Date Jennifer Weathers MD [address] [place] [phone] PCP - General 08/15/19 documented as of this encounter
--- OUTSIDE RECORDS SUMMARY | 2024-09-12 16:41 | XMS_ITS | Encounter Summary ---
Author Organization [address] [address] Care Team Providers Care Ent Nurse Name Role Phone Jennifer Weathers MD Primary Care Provider [phone] Reason for Visit * Reason Comments Medication Refill Encounter Details Date Type Department Care Team (Late st Contact Info) Description 02/10/2021 Refill [facility] G[facility], [place] [address] [place] [address] Olga Terrell MD [address] [place] [address] Gastro-esophageal reflux disease without esophagitis Social History [...] Telephone Encounter - Yue Boo RN - 02/10/2021 9:09 AM EDT Last visit: 12/23/20 Next visit: 03/26/21 Weight: 54.8 kg Allergies: reviewed Current dose: Famotidine 20 mg po twice daily as needed documented in this encounter Plan of Treatment Upcoming Encounters Date Type Department Care Team (Late st Contact Info) Description 10/19/2024 11:30 AM EDT Office Visit [facility] G[facility]enterology, [place] [address] [place] [address] Olga Terrell MD [address] [place] [address] documented as of this encounter Visit Diagnoses Diagnosis Gastro-esophageal reflux disease without esophagitis documented in this encounter Care Teams Ent Nurse Relationship Specialty Start Date End Date Jennifer Weathers MD [address] [place] [phone] PCP - General 08/15/19 documented as of this encounter
--- OUTSIDE RECORDS SUMMARY | 2024-09-12 16:41 | XMS_ITS ---
Author Name [facility] Unknown History of Medication Use Medication Directions Dispensed Refills Start Date End Date Status clonazePAM (KLONOPIN) 2 MG disintegrating tablet 02 3 active hydrOXYzine (ATARAX) 25 MG tablet See Instructions, 1 tablet PO qhs. Can take 2 tabs PO qhs if needed, # 60 tablet, 0 Refills, Acute 12/05/23 15:46:00 EDT, 11/07/23 14:31:00 EDT, [facility]/pharmacy #[id number], Partial fill upon patient request if the prescription is for a schedule II opioid drug... 3 12/06/19 24 active linaCLOtide (LINZESS) 72 mcg Capsule Take 72 mcg by mouth daily 4 01/13/20 24 active lamoTRIGine (LAMICTAL) 25 MG disintegrating tablet Take by mouth 9 active famotidine (PEPCID) 20 MG tablet TAKE 1 TABLET (20 MG) BY MOUTH TWICE A DAY 4 01/13/20 24 active zonisamide (ZONEGRAN) 50 MG capsule TAKE 1 CAP BY MOUTH DAILY FOR 1 WEEK, THEN 2 CAPS DAILY X1 WEEK, THEN 3 DAILY X1 WEEK, THEN 4 DAILY 0 active tretinoin (RETIN-A) 0.025 % cream Apply topically active clonazePAM (KLONOPIN) 1 MG tablet Take by mouth active omeprazole (PRILOSEC) 20 MG capsule TAKE 1 CAPSULE BY MOUTH EVERY DAY 0 active famotidine (PEPCID) 20 MG tablet TAKE 1 TABLET (20 MG) BY MOUTH 2 (TWO) TIMES DAILY 0 10/14/19 21 active ibuprofen (MOTRIN) 400 MG tablet 400 mg 3 active XULANE 150-35 mcg/24 hr 1 PATCH TOPICALLY EVERY WEEK,APPLY 1 PATCH WEEKLY FOR 3 WEEKS, REMOVE FOR 1 WEEK, THEN REPEAT CYCLE 0 active melatonin 5 mg tablet TAKE 1 TABLET BY MOUTH DAILY AT BEDTIME NEEDED FOR INSOMNIA 0 active riboflavin, vitamin B2, 100 mg Tablet Take by mouth active magnesium oxide 500 mg Capsule Take by mouth active riboflavin, vitamin B2, 100 mg Tablet Take 400 mg by mouth daily active polyethylene glycol (MIRALAX) 17 gram packet MIX 16 PACKETS IN 64 OUNCES GATORADE AND DRINK OVER 4 6 HOURS, FOLLOWED BY 1 PACKET TWICE A DAY 0 04/29/20 20 active cyproheptadine (PERIACTIN) 4 mg tablet TAKE 1 TABLET BY MOUTH EVERY DAY IN THE MORNING 0 active fluticasone propionate (FLONASE) 50 mcg/actuation nasal spray by Nasal route 0 active sertraline (ZOLOFT) 50 MG tablet Take 100 mg by mouth daily 0 active sertraline (ZOLOFT) 100 MG tablet Take by mouth 1 12/08/19 22 active sennosides 15 mg Tablet, Chewable TAKE 1 TABLET BY MOUTH TWICE A DAY 9 active senna (SENOKOT) 8.6 mg tablet Take 1 tablet by mouth nightly 4 01/13/20 24 active SUMAtriptan (IMITREX) 25 MG tablet Take by mouth active pyridoxine, vitamin B6, (B-6) 100 MG tablet Take by mouth ac tive naproxen (NAPROSYN) 500 MG tablet TAKE 1 TABLET BY MOUTH 2 TIMES DAILY WITH FOOD FOR 5 DAYS 3 active magnesium gluconate 27 mg magnesium (500 mg) Tablet Take by mouth active risperiDONE (RISPERDAL M-TABS) 1 MG disintegrating tablet Take by mouth 1 12/08/19 22 active QUEtiapine (SEROQUEL) 100 MG tablet Take 100 mg by mouth nightly active levonorgestreL (LILETTA) 20.1 mcg/24 hrs (6 yrs) 52 mg IUD by Intrauterine route 1 active risperiDONE (RISPERDAL) 1 MG tablet TAKE 1 TABLET BY MOUTH EVERYDAY AT BEDTIME 0 active SUMAtriptan (IMITREX) 50 MG tablet TAKE 1 TABLET BY MOUTH AT ONSET OF HEADACHE. MAY REPEAT 1 TAB IN 2 HOURS IF NEEDED. MAX 2/DAY 4/WEEK 0 active QUEtiapine (SEROQUEL XR) 50 mg Tablet Extended Release 24 hr Please see attached for detailed directions 3 active diazepam (VALIUM) 5 mg/mL injection Inject 10 mg as directed as needed. active LAMICTAL ODT 100 mg Tablet, Rapid Dissolve TAKE 2 TABLETS BY MOUTH TWICE A DAY 0 active sertraline (ZOLOFT) 50 MG tablet Take 100 mg by mouth daily 0 active GAVILAX 17 gram/dose powder DISSOLVE 17 GRAMS INTO WATER AND DRINK BY MOUTH EVERY DAY 3 08/17/19 24 active SENNA 8.6 mg tablet TAKE 1 TABLET BY MOUTH EVERY DAY AT NIGHT 2 active ferrous gluconate (FERGON) 240 (27 FE) MG tablet Take by mouth active ferrous gluconate (FERGON) 240 (27 FE) MG tablet Take by mouth active EPINEPHrine (EPIPEN) 0.3 mg/0.3 mL injection Inject 1 Device as directed as needed (anaphylaxis). Use as directed 7 03/07/20 23 active omeprazole (PRILOSEC) 20 MG capsule TAKE 1 CAPSULE BY MOUTH EVERY DAY 0 active risperiDONE (RISPERDAL) 1 MG tablet TAKE 1 TABLET BY MOUTH EVERYDAY AT BEDTIME 0 active riboflavin, vitamin B2, 100 mg Tablet Take 400 mg by mouth daily active cyproheptadine (PERIACTIN) 4 mg tablet TAKE 1 TABLET BY MOUTH EVERY DAY IN THE MORNING 0 active clonazePAM (KLONOPIN) 1 MG tablet Take by mouth active multivitamin tablet Take by mouth active cyanocobalamin 500 MCG tablet Take by mouth active desmopressin (DDAVP) 0.1 MG tablet TAKE 1 TABLET BY MOUTH AT BEDTIME FOR 90 DAYS 3 active SUMAtriptan (IMITREX) 25 MG tablet Take by mouth active levonorgestreL (LILETTA) 20.1 mcg/24 hrs (6 yrs) 52 mg IUD by Intrauterine route 1 active ondansetron (ZOFRAN-ODT) 8 MG disintegrating tablet TAKE 1 TABLET BY MOUTH AT ONSET OF HEADACHE/NAUSEA WHEN NEEDED FOR NAUSEA OR VOMITING 9 active magnesium gluconate 27 mg magnesium (500 mg) Tablet Take by mouth active medroxyPROGESTERone (DEPO-PROVERA) 150 mg/mL injection mg, IM, Entered: 12/22/20 11:26:00 EDT 1 active sertraline (ZOLOFT) 25 MG tablet TAKE 2 TABLET BY MOUTH DAILYTAKE WITH 100MG TABLET FOR TOTAL DAILY DOSE OF 150MG 3 active metroNIDAZOLE (FLAGYL) 500 MG tablet Take by mouth 2 10/23/19 22 active SUMAtriptan (IMITREX) 50 MG tablet TAKE 1 TABLET BY MOUTH AT ONSET OF HEADACHE. MAY REPEAT 1 TAB IN 2 HOURS IF NEEDED. MAX 2/DAY 4/WEEK 0 active fluticasone propionate (FLONASE) 50 mcg/actuation nasal spray by Nasal route 0 active traZODone (DESYREL) 50 MG tablet TAKE 1 TABLET BY MOUTH EVERY DAY AT BEDTIME FOR INSOMNIA 0 active pyridoxine, vitamin B6, (B-6) 100 MG tablet Take by mouth ac tive sennosides 15 mg Tablet, Chewable TAKE 1 TABLET BY MOUTH TWICE A DAY 9 active traZODone (DESYREL) 50 MG tablet TAKE 1 TABLET BY MOUTH EVERY DAY AT BEDTIME FOR INSOMNIA 0 active cloBAZam (ONFI) 20 mg tablet 50 mg active VALTOCO 15 mg/2 spray (7.5/0.1mL x 2) [place], Non-Aerosol Please see attached for detailed directions 3 active diazepam (VALIUM) 5 mg/mL injection Inject 10 mg as directed as needed. active QUEtiapine (SEROQUEL) 25 MG tablet 1 TABLET BY MOUTH AT BEDTIME FOR 1 WEEK THEN INCREASE TO 2 TABS (50MG) BY MOUTH AT BEDTIME 3 active SENNA 8.6 mg tablet TAKE 1 TABLET BY MOUTH NIGHTLY 0 10/26/19 23 active polyethylene glycol (MIRALAX) 17 gram/dose powder Mix 16 capfuls in 64 oz gatorade drink over 4 to 6 hours 0 active ofloxacin (FLOXIN) 0.3 % otic solution INSTILL 10 DROPS INTO THE EAR TWICE DAILY FOR 10 DAYS 3 active polyethylene glycol (MIRALAX) 17 gram/dose powder Take 17 g by mouth 2 (two) times daily 1 capful twice daily 0 05/30/20 20 completed cyanocobalamin 500 MCG tablet Take by mouth 05/26/20 20 active cholecalciferol, vitamin D3, 12.5 mcg Tablet Take by mouth ac tive cholecalciferol, vitamin D3, 12.5 mcg Tablet Take by mouth ac tive SUMAtriptan (IMITREX) 25 MG tablet Take by mouth active riboflavin, vitamin B2, 100 mg Tablet 100 mg 3 active Problems Problem Status Onset Date Problem Type Date of Resoluti on Source Constipation, unspecified active EncounterDiagnosisAct [facility] Gastro-esophageal reflux disease without esophagitis active EncounterDiagnosisAct [facility]
--- OUTSIDE RECORDS SUMMARY | 2024-09-12 16:41 | XMS_ITS | Encounter Summary ---
Author Organization [facility] Address [address] [place] [address] Care Team Providers Care Sandal Parts Assembler Name Role Phone Jennifer Weathers MD Primary Care Provider [phone] Reason for Visit * Reason Comments Medication Refill Encounter Details Date Type Department Care Team (Late st Contact Info) Description 01/12/2021 Refill [facility] Gastroenterology, [address] [phone] Olga Terrell MD [address] [place] [address] Constipation, unspecified Social History Tobacco Use Types Packs/Day Years Used Date Smoking Tobacco: Never Smokeless Tobacco: Never Comments No Sex and Gender Information Value Date Recorded Sex Assigned at Not on file Legal Sex Female 2:11 PM EST Gender Identity Not on file Sexual Orientation Not on file documented as of this encounter Miscellaneous Notes * Telephone Encounter - Damari Hughes RN - 01/12/2021 3:28 PM EDT Last appt: 12/23/2020 Next appt:03/26/2021 Wt: 54.8 kg Allergies: reviewed Dose: Senna - 1 tablet daily documented in this encounter Plan of Treatment Upcoming Encounters Date Type Department Care Team (Late st Contact Info) Description 10/19/2024 11:30 AM EDT Office Visit [facility] Gastroenterology, [place] [address] [place] [address] Olga Terrell MD [address] [place] [address] documented as of this encounter Visit Diagnoses Diagnosis Constipation, unspecified documented in this encounter Care Teams Sandal Parts Assembler Relationship Specialty Start Date End Date Jennifer Weathers MD [address] [place] [phone] PCP - General 08/15/19 documented as of this encounter
--- OUTSIDE RECORDS SUMMARY | 2024-09-12 16:41 | XMS_ITS | Encounter Summary ---
Author Organization [facility] Address [address] [place] [address] Care Team Providers Care Wood Finisher Apprentice Name Role Phone Jennifer Weathers MD Primary Care Provider [phone] Reason for Visit * Reason Comments Medication Refill Encounter Details Date Type Department Care Team (Late st Contact Info) Description 05/18/2020 Refill [facility] Gastroenterology, [place] [address] [place] [address] Olga Terrell MD [address] [place] [address] Poor appetite Social History Tobacco Use Types Packs/Day Years Used Date Smoking Tobacco: Never Smokeless Tobacco: Never Comments No Sex and Gender Information Value Date Recorded Sex Assigned at Not on file Legal Sex Female 2:11 PM EST Gender Identity Not on file Sexual Orientation Not on file documented as of this encounter Miscellaneous Notes * Telephone Encounter - Dotty Cody MA - 05/19/2020 10:45 AM EST Follow up appt sunitha vital 05/26/20 telehealth appt . * Telephone Encounter - Yue Boo RN - 05/19/2020 10:31 AM EST Last visit: 02/22/20 Next visit: no showed 04/18/20 Weight: 55.9 kg Allergies: reviewed Current dose: verified 02/22/20 Aitza please call family to reschedule no showed appt thank you. documented in this encounter Plan of Treatment Upcoming Encounters Date Type Department Care Team (Late st Contact Info) Description 10/19/2024 11:30 AM EDT Office Visit [facility] G[facility]ology, [place] [address] [place] [address] Olga Terrell MD [address] [place] [address] documented as of this encounter Visit Diagnoses Diagnosis Poor appetite Anorexia documented in this encounter Care Teams Wood Finisher Apprentice Relationship Specialty Start Date End Date Jennifer Weathers MD [address] [place] [address] PCP - General 08/15/19 documented as of this encounter
--- OUTSIDE RECORDS SUMMARY | 2024-09-12 16:41 | XMS_ITS | Encounter Summary ---
Author Organization [address] [address] Care Team Providers Care Art Department Head Name Role Phone Jennifer Weathers MD Primary Care Provider [phone] Reason for Visit * Reason Comments Medication Refill Encounter Details Date Type Department Care Team (Late st Contact Info) Description 05/28/[address] [phone] Olga Terrell MD [address] [place] [address] Constipation, unspecified Social History Tobacco Use Types Packs/Day Years Used Date Smoking Tobacco: Never Smokeless Tobacco: Never Comments No Sex and Gender Information Value Date Recorded Sex Assigned at Not on file Legal Sex Female 2:11 PM EST Gender Identity Not on file Sexual Orientation Not on file documented as of this encounter Miscellaneous Notes * Telephone Encounter - Joaquina Jessica RN - 05/28/2020 2:21 PM EST Dose correct Last seen 05-26-2020- tele med No pending appts documented in this encounter Plan of Treatment Upcoming Encounters Date Type Department Care Team (Late st Contact Info) Description 10/19/2024 11:30 AM EDT [facility] [address] [place] [address] Olga Terrell MD [address] [place] [address] documented as of this encounter Visit Diagnoses Diagnosis Constipation, unspecified documented in this encounter Care Teams Art Department Head Relationship Specialty Start Date End Date Jennifer Weathers MD [address] [place] [address] PCP - General 08/15/19 documented as of this encounter
--- OUTSIDE RECORDS SUMMARY | 2024-09-12 16:41 | XMS_ITS | Clinical Summary ---
Author Organization [facility] Address [address] [place] [address] Phone Care Team Providers Care Asp Net Software Developer Name Role Phone Jennifer Weathers Primary Care Provider [phone] Immunizations Immunization Administration Dates Next Due DTaP 5 06/12/2007, 5,2003,10/10 Hep A, ped/adol 10/23/2015 Hep B, ped/adol 03/05/2004,2003,2003 Hib (PRP-T) 09/04/2004, 4,2003,08/12 IPV 06/12/2007, 4,2003,08/06 Influenza, injectable, quadr ivalent, preservative free 05/28/2015 MMR 09/04/2004 MMRV 06/12/2007 Meningococcal Conj (Menactra) MCV4P 10/23/2015 Pneumococcal Conjugate 09/04/2004,2003,2003,08/06 Tdap 10/23/2015 Varicella 2004 Social History Tobacco Use Types Packs/Day Years Used Date Smoking Tobacco: Never Comments:Never Smoker Comments Unknown Sex and Gender Information Value Date Recorded Sex Assigned at Not on file Legal Sex Female 6:43 PM EDT Gender Identity Not on file Sexual Orientation Not on file Last Filed Vital Signs Vital Sign Reading Time Taken Comments Blood Pressure - - Pulse 79 11/27/2015 9:28 AM EDT Temperature 37.2 ??C (98.9 ??F) 08/18/2015 2:36 PM ES T Respiratory Rate - - Oxygen Saturation 98% 11/27/2015 9:28 AM EDT Inhaled Oxygen Concentration - - Weight 52.7 kg (116 lb 3.2 oz) 11/27/2015 9:28 A M EDT Height 150.5 cm (4' 11.25 ) 11/27/2015 9:28 AM E DT Body Mass Index 23.27 11/27/2015 9:28 AM EDT Plan of Treatment Health Maintenance Due Date Last Done Comments Hepatitis A Vaccines (2 of 2 - 2-dose series) 04/23/2016 10/23/2015 HPV Vaccines (1 - 3-dose series) 2018 Men B Vaccine (1 of 2 - Standard) 2019 Influenza Vaccines (#1) 2024 05/28/2015 COVID-19 Vaccine ( season) 2024 DTaP,Tdap,and Td Vaccines (6 - Td or Tdap) 10/22/2025 10/23/2015, 06/12/2007, 09/04/2004, Additional history exists Hepatitis B Vaccines Completed 03/05/2004, 2003, 2003 HIB Vaccines Completed 09/04/2004, 11/16, 2003, Additional history exists Pneumococcal Vaccine Completed 09/04/2004, 2004, 2003, Additional history exists IPV Vaccines Completed 06/12/2007, 11/16, 2003, Additional history exists MMR Vaccines Completed 06/12/2007, 09/04/2004 Varicella Vaccines Completed 06/12/2007, 2004 Meningococcal Vaccine Aged Out 10/23/2015 No [place] eligible based on patient's age to complete this topic Care Teams Asp Net Software Developer Relationship Specialty Start Date End Date Jennifer Weathers [address] [place] [address] PCP - General 11/23/17
--- OUTSIDE RECORDS SUMMARY | 2024-09-12 16:41 | XMS_ITS | Encounter Summary ---
Author Organization [facility] Address [address] [place] [address] Care Team Providers Care Classroom Technology Coach Name Role Phone Jennifer Weathers MD Primary Care Provider [phone] Reason for Visit * Reason Comments Medication Refill Encounter Details Date Type Department Care Team (Late st Contact Info) Description 03/28/2020 [facility] [address] [place] [address] Olga Terrell MD [address] [place] [address] Poor appetite Social History Tobacco Use Types Packs/Day Years Used Date Smoking Tobacco: Never Smokeless Tobacco: Never Comments No Sex and Gender Information Value Date Recorded Sex Assigned at Not on file Legal Sex Female 2:11 PM EST Gender Identity Not on file Sexual Orientation Not on file documented as of this encounter Miscellaneous Notes * Telephone Encounter - Joaquina Jessica RN - 03/28/2020 11:33 AM EDT Last seen 02-22-20 Per visit note it states continue periactin 4 mg In morning- she had been on 8 mg so this is a dosechange- I corrected rx but if you want 8 mg please switch it back Next appt 04-18-20 documented in this encounter Plan of Treatment Upcoming Encounters Date Type Department Care Team (Late st Contact Info) Description 10/19/2024 11:30 AM EDT Office Visit [facility], [place] [address] [place] [address] Olga Terrell MD [address] [place] [phone] documented as of this encounter Visit Diagnoses Diagnosis Poor appetite Anorexia documented in this encounter Care Teams Classroom Technology Coach Relationship Specialty Start Date End Date Jennifer Weathers MD [address] [place] [address] PCP - General 08/15/19 documented as of this encounter
--- OUTSIDE RECORDS SUMMARY | 2024-09-12 16:41 | XMS_ITS | Encounter Summary ---
[place] [address] Care Team Providers Care Engraver Apprentice Decorative Name Role Phone Jennifer Weathers MD Primary Care Provider Reason for Visit * Reason Comments Medication Refill Encounter Details Date Type Department Care Team (Late Contact Info) Description 03/08/2023 Refill [facility] Gastroenter[facility] [phone] Olga Terrell MD [address] [place] [address] Gastro-esophageal reflux disease without esophagitis Social History [...] Telephone Encounter - Yue Boo RN - 03/10/2023 10:57 AM EDT Last appt: 03/07/23 Next appt: Follow up in 6 months Weight: 60.3 kg Allergies: reviewed Current dosage: Famotidine 20 mg po twice daily as needed for reflux Please book a follow up appt. Thank you Irlanda documented in this encounter Plan of Treatment Upcoming Encounters Date Type Department Care Team (Late st Contact Info) Description 10/19/2024 11:30 AM EDT Office Visit [facility], [place] [address] [place] [address] Olga Terrell MD [address] [place] [address] documented as of this encounter Visit Diagnoses Diagnosis Gastro-esophageal reflux disease without esophagitis documented in this encounter Care Teams Engraver Apprentice Decorative Relationship Specialty Start Date End Date Jennifer Weathers MD [address] [place] [address] PCP - General 08/15/19 documented as of this encounter
--- OUTSIDE RECORDS SUMMARY | 2024-09-12 16:41 | XMS_ITS | Encounter Summary ---
[place] [address] Care Team Providers Care Livestock Slaughterer Name Role Phone Jennifer Weathers MD Primary Care Provider [phone] Reason for Visit * Reason Comments Medication Refill Encounter Details Date Type Department Care Team ([facility] Contact Info) Description 02/25/2022 Refill [facility] Gastroenterology[address] [phone] Olga Terrell MD [address] [place] [phone] Gastro-esophageal reflux disease without esophagitis; Constipation, unspecified Social History Tobacco Use Types Packs/Day Years Used Date Smoking Tobacco: Never Smokeless Tobacco: Never Comments No Sex and Gender Information Value Date Recorded Sex Assigned at Not on file Legal Sex Female 2:11 PM EST Gender Identity Not on file Sexual Orientation Not on file documented as of this encounter Miscellaneous Notes * Telephone Encounter - Yue Boo RN - 02/26/2022 11:28 AM EDT Last appt: 10/19/21 Next appt: 04/20/22 Weight: 57.8 kg Allergies: reviewed Current dosage: . Famotidine 20 mg po twice daily as needed SENNA 8.6 mg tablet TAKE 1 TABLET BY MOUTH EVERY DAY AT NIGHT documented in this encounter Plan of Treatment Upcoming Encounters Date Type Department Care Team ([facility] st Contact Info) Description 10/19/2024 11:30 AM EDT Office Visit [facility], [place] [address] [place] [address] Olga Terrell MD [address] [place] [address] documented as of this encounter Visit Diagnoses Diagnosis Gastro-esophageal reflux disease without esophagitis Constipation, unspecified documented in this encounter Care Teams Livestock Slaughterer Relationship Specialty Start Date End Date Jennifer Weathers MD [address] [place] [address] PCP - General 08/15/19 documented as of this encounter
--- OUTSIDE RECORDS SUMMARY | 2024-09-12 16:41 | XMS_ITS | Encounter Summary ---
Author Organization [address] [address] Care Team Providers Care Teacher Advisor Name Role Phone Jennifer Weathers MD Primary Care Provider [phone] Reason for Visit * Reason Comments Medication Refill Encounter Details Date Type Department Care Team (Late st Contact Info) Description 04/02/[address] [phone] Olga Terrell MD [address] [place] [address] Gastro-esophageal reflux disease without esophagitis Social History [...] Telephone Encounter - Joaquina Jessica RN - 04/02/2020 10:44 AM EDT Dose correct Last seen in clinic 02-22-2020 Next appt 04-18-2020 documented in this encounter Plan of Treatment Upcoming Encounters Date Type Department Care Team (Late st Contact Info) Description 10/19/2024 11:30 AM EDT [facility] [address] [place] [address] Olga Terrell MD [address] [place] [address] documented as of this encounter Visit Diagnoses Diagnosis Gastro-esophageal reflux disease without esophagitis documented in this encounter Care Teams Teacher Advisor Relationship Specialty Start Date End Date Jennifer Weathers MD [address] [place] [address] PCP - General 08/15/19 documented as of this encounter
--- OUTSIDE RECORDS SUMMARY | 2024-09-12 16:41 | XMS_ITS | Encounter Summary ---
Author Organization [address] [address] Care Team Providers Care Helpdesk Specialist Name Role Phone Jennifer Weathers MD Primary Care Provider [phone] Reason for Visit * Reason Comments Medication Refill Encounter Details Date Type Department Care Team (Late st Contact Info) Description 04/26/2021 Refill [facility] Gastroenterology, [address] [phone] Katya Arthur MD [address] [place] [address] Constipation, unspecified Social History Tobacco Use Types Packs/Day Years Used Date Smoking Tobacco: Never Smokeless Tobacco: Never Comments No Sex and Gender Information Value Date Recorded Sex Assigned at Not on file Legal Sex Female 2:11 PM EST Gender Identity Not on file Sexual Orientation Not on file documented as of this encounter Miscellaneous Notes * Telephone Encounter - Lizeth More - 05/01/2021 10:00 AM EDT Spoke with mom - she was busy but says she will call back to schedule * Telephone Encounter - Kezia Pérez RN - 04/28/2021 4:30 PM EDT Last Visit 12/23/20 FUV no FUV scheduled, 03/26/21 appt canceled Allergies reviewed Weight 54.8kg Current Dose correct per OV note documented in this encounter Plan of Treatment Upcoming Encounters Date Type Department Care Team (Late st Contact Info) Description 10/19/2024 11:30 AM EDT Office Visit [facility], [place] [address] [place] [address] Olga Terrell MD [address] [place] [address] documented as of this encounter Visit Diagnoses Diagnosis Constipation, unspecified documented in this encounter Care Teams Helpdesk Specialist Relationship Specialty Start Date End Date Jennifer Weathers MD [address] [place] [address] PCP - General 08/15/19 documented as of this encounter
--- OUTSIDE RECORDS SUMMARY | 2024-09-12 16:41 | XMS_ITS | Encounter Summary ---
Author Organization [facility] Address [address] [place] [address] Care Team Providers Care Gas Pumping Station Helper Name Role Phone Jennifer Weathers MD Primary Care Provider [phone] Reason for Visit * Reason Comments Medication Refill Encounter Details Date Type Department Care Team (Late st Contact Info) Description 12/03/2019 Refill [facility] Gastroenterology, [place] [address] [place] [address] Olga Terrell MD [address] [place] [address] Constipation, unspecified constipation type Social History Tobacco Use Types Packs/Day Years Used Date Smoking Tobacco: Never Smokeless Tobacco: Never Comments Unknown Sex and Gender Information Value Date Recorded Sex Assigned at Not on file Legal Sex Female 2:11 PM EST Gender Identity Not on file Sexual Orientation Not on file documented as of this encounter Miscellaneous Notes * Telephone Encounter - Beth Coyle MA - 12/04/2019 8:43 AM EDT Left message for patient's mom to call back in regards to scheduling a follow up * Telephone Encounter - Yue Boo RN - 12/03/2019 2:21 PM EDT needs a telehealth visits was supposed to be booked 2-3 months after the 10/04 telemedicine visit * Telephone Encounter - Yue Boo RN - 12/03/2019 12:57 PM EDT Last visit: 10/05/19 Next visit: needs a telehealth visits was supposed to be booked 2-3 months after the 10/04 telemedicine visit Weight: 54.7 kg Allergies: reviewed Current dose: Miralax 1 capful daily. documented in this encounter Plan of Treatment Upcoming Encounters Date Type Department Care Team (Late st Contact Info) Description 10/19/2024 11:30 AM EDT Office Visit [facility], [place] [address] [place] [address] Olga Terrell MD [address] [place] [address] documented as of this encounter Visit Diagnoses Diagnosis Constipation, unspecified constipation type documented in this encounter Care Teams Gas Pumping Station Helper Relationship Specialty Start Date End Date Jennifer Weathers MD [address] [place] [address] PCP - General 08/15/19 documented as of this encounter
--- OUTSIDE RECORDS SUMMARY | 2024-09-12 16:41 | XMS_ITS | Encounter Summary ---
Author Organization [facility] [address] [place] [address] Care Team Providers Care Surveillance Inspector Name Role Phone Jennifer Weathers MD Primary Care Provider [phone] Reason for Visit * Reason Comments Medication Refill Encounter Details Date Type Department Care Team (Late st Contact Info) Description 10/13/2020 Refill [facility] Gastroenterology, [place] [address] [place] [address] Olga Terrell MD [address] [place] [address] Gastro-esophageal reflux disease without esophagitis Social History Tobacco Use Types Packs/Day Years Used Date Smoking Tobacco: Never Smokeless Tobacco: Never Comments No Sex and Gender Information Value Date Recorded Sex Assigned at Not on file Legal Sex Female 2:11 PM EST Gender Identity Not on file Sexual Orientation Not on file documented as of this encounter Miscellaneous Notes * Telephone Encounter - Irlanda Taylor MA - 10/13/2020 10:51 AM EDT TC to mom to schedule a follow appt per Dr. Terrell. Left a message for mom to call office back andschedule a follow up appt at her earliest convenience * Telephone Encounter - Yue Boo RN - 10/13/2020 10:11 AM EDT Last visit: 05/26/20 Next visit: needs a follow up appt. Weight: 55.9 kg Allergies: reviewed Current dose: Famotidine 20 mg po twice daily as needed documented in this encounter Plan of Treatment Upcoming Encounters Date Type Department Care Team (Late st Contact Info) Description 10/19/2024 11:30 AM EDT Office Visit [facility], [place] [address] [place] [address] Olga Terrell MD [address] [place] [phone] documented as of this encounter Visit Diagnoses Diagnosis Gastro-esophageal reflux disease without esophagitis documented in this encounter Care Teams Surveillance Inspector Relationship Specialty Start Date End Date Jennifer Weathers MD [address] [place] [address] PCP - General 08/15/19 documented as of this encounter
--- OUTSIDE RECORDS SUMMARY | 2024-09-12 16:41 | XMS_ITS | Clinical Summary ---
Author Organization [facility] Address [address] [place] [address] Care Team Providers Care Public Health Dentist Name Role Phone Jennifer Weathers MD Primary Care Provider [phone] Source Comments Please note that some or all of the patient's information could have additional privacy protections. State laws allow health care providers to render certain types of treatment to minors without parental consent. Please do not assume that this information can be shared solely by obtaining just the consent of the patient's parent/guardian. Please determine if all or part of the patient's care was rendered without parent/guardian involvement. And, if so, obtain the minor's consent prior to disclosure.[facility] Allergies Active Allergy Reactions Criticality Noted Date Comments Acetaminophen 10/05/2018 Drug interaction Other reaction(s): interaction with seizure meds Apple 04/28/2017 Nausea with red apples that are fresh, can eat processed and fresh green apples Nausea with red apples that are fresh, can eat processed and fresh green apples Other reaction(s): OTHER Vomiting with apple and rash ( red) Can eat green and apple juice Apple Juice 04/28/2017 Vomiting with apple and rash Nausea with red apples that are fresh, can eat processed and fresh green apples Nausea with red apples that are fresh, can eat processed and fresh green apples Nausea with red apples that are fresh, can eat processed and fresh green apples Cat Dander 12/23/2020 Cat Hair Standardized Allergenic Extract 12/23/2020 Multivit With Min-Folic Acid 12/23/2020 red apples, peaches, citrus fruits [place] And Derivatives Rash Low 10/05/2018 Contact dermatitis Codeine 12/12/2019 Gluten 12/12/2019 Albert 03/07/2023 Mold 12/23/2020 Nutritional Supplement-Fiber 10/19/2021 [place] 10/19/2021 Other reaction(s): 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 Able to eat processed Fresh peach causes contact hives. Able to eat processed Fresh peach causes contact hives. Able to eat processed Fresh peach causes contact hives. Able to eat processed Pineapple 12/12/2019 Other reaction(s): citrus fruits Pollen Extracts 12/23/2020 Seasonal 12/23/2020 Medications cholecalciferol (VITAMIN D3) 25 mcg (1,000 unit) chewable tablet Take by mouth Active cloBAZam (ONFI) 10 mg tablet Take by mouth Active clonazePAM (KLONOPIN) 1 MG tablet Take by mouth Active cyanocobalamin 500 MCG tablet Take by mouth Activ e diazepam (VALIUM) 5 mg/mL injection 10 mg. Ac tive EPINEPHrine (EPIPEN) 0.3 mg/0.3 mL injection 1 Device. 07/14/20 17 Active ibuprofen (MOTRIN) 400 MG tablet Take by mouth Ac tive ALAWAY 0.025 % (0.035 %) ophthalmic solution PLACE 1 DROP INTO BOTH EYES 2 TIMES DAILY NEEDED 07/24/19 20 Active lamoTRIGine (LAMICTAL) 25 MG disintegrating tablet Take by mouth 09/13/19 19 Active magnesium oxide 500 mg Capsule Take by mouth A ctive melatonin 5 mg tablet TAKE 1 TABLET BY MOUTH DAILY AT BEDTIME NEEDED FOR INSOMNIA 07/25/19 20 Active multivitamin capsule Take by mouth Active ondansetron (ZOFRAN-ODT) 8 MG disintegrating tablet TAKE 1 TABLET BY MOUTH AT ONSET OF HEADACHE/NAUSEA WHEN NEEDED FOR NAUSEA OR VOMITING 09/23/19 19 Active pyridoxine, vitamin B6, (B-6) 100 MG tablet Take by mouth Ac tive riboflavin, vitamin B2, 100 mg Tablet Take 400 mg by mouth daily Active risperiDONE (RISPERDAL) 0.5 MG tablet Take 0.5 mg by mouth daily 07/28/19 20 Active sennosides 15 mg Tablet, Chewable TAKE 1 TABLET BY MOUTH TWICE A DAY 09/07/19 19 Active sertraline (ZOLOFT) 50 MG tablet Take 100 mg by mouth daily 07/24/19 20 Active SUMAtriptan (IMITREX) 25 MG tablet Take by mouth Active traZODone (DESYREL) 50 MG tablet TAKE 1 TABLET BY MOUTH EVERY DAY AT BEDTIME FOR INSOMNIA 08/16/19 20 Active tretinoin (RETIN-A) 0.025 % cream Apply topically Acti ve bisacodyL (DULCOLAX, BISACODYL,) 5 mg EC tabletIndications: Constipation, unspecified constipation type Take 2 tablets prior to taking magnesium citrate for cleanout 5 tablet 09/18/19 20 Active Additional Information Patient not taking.Reported on 03/07/2023 omeprazole (PRILOSEC) 20 MG capsuleIndications :Gastroesophageal reflux disease, esophagitis presence not specified TAKE 1 CAPSULE BY MOUTH EVERY DAY 30 capsule 1 01/01/20 20 Active Additional Information Patient not taking.Reported on 04/20/2022 magnesium gluconate 27 mg magnesium (500 mg) Tablet Take by mouth Active XULANE 150-35 mcg/24 hr 1 PATCH TOPICALLY EVERY WEEK,APPLY 1 PATCH WEEKLY FOR 3 WEEKS, REMOVE FOR 1 WEEK, THEN REPEAT CYCLE 01/08/20 20 Active zonisamide (ZONEGRAN) 50 MG capsule TAKE 1 CAP BY MOUTH DAILY FOR 1 WEEK, THEN 2 CAPS DAILY X1 WEEK, THEN 3 DAILY X1 WEEK, THEN 4 DAILY 01/11/20 20 Active cholecalciferol, vitamin D3, 50 mcg (2,000 unit) capsule Take by mouth Active ketotifen (ZADITOR) 0.025 % (0.035 %) ophthalmic solution Apply to eye 08/19/19 20 Active LAMICTAL ODT 100 mg Tablet, Rapid Dissolve TAKE 2 TABLETS BY MOUTH TWICE A DAY 12/30/19 20 Active multivitamin tablet Take by mouth Active omeprazole (PRILOSEC) 20 MG capsule TAKE 1 CAPSULE BY MOUTH EVERY DAY 08/24/19 20 Active polyethylene glycol (MIRALAX) 17 gram packet MIX 16 PACKETS IN 64 OUNCES GATORADE AND DRINK OVER 4 6 HOURS, FOLLOWED BY 1 PACKET TWICE A DAY 01/13/20 20 Active riboflavin, vitamin B2, 100 mg Tablet Take by mouth Active risperiDONE (RISPERDAL) 1 MG tablet TAKE 1 TABLET BY MOUTH EVERYDAY AT BEDTIME 01/06/20 20 Active sertraline (ZOLOFT) 100 MG tablet Take 125 mg by mouth daily Active SUMAtriptan (IMITREX) 50 MG tablet TAKE 1 TABLET BY MOUTH AT ONSET OF HEADACHE. MAY REPEAT 1 TAB IN 2 HOURS IF NEEDED. MAX 2/DAY 4/WEEK 01/06/20 20 Active QUEtiapine (SEROQUEL) 100 MG tablet Take 100 mg by mouth nightly Active cyproheptadine (PERIACTIN) 4 mg tabletIndications: Poor appetite TAKE 1 TABLET BY MOUTH EVERY DAY IN THE MORNING 30 tablet 1 05/19/20 20 Active Additional Information Patient not taking.Reported on 04/20/2022 cloBAZam (ONFI) 20 mg tablet 50 mg Active medroxyPROGESTERon e (DEPO-PROVERA) 150 mg/mL injection mg, IM, Entered: 12/22/20 11:26:00 EDT 12/23/19 21 Active diazepam (VALIUM) 5 mg/mL injection Inject 10 mg as directed as needed. Active multivit-min/brianne us fumarate (MULTI VITAMIN ORAL) Take by mouth Ac tive traZODone (DESYREL) 50 MG tablet Take by mouth Active cholecalciferol, vitamin D3, 12.5 mcg Tablet Take by mouth Activ e ketotifen (ZADITOR) 0.025 % (0.035 %) ophthalmic solution Apply to eye 12/09/19 21 Active magnesium gluconate (MAGONATE) 27.5 mg magne- sium (500 mg) tablet Take by mouth Activ e medroxyPROGESTERon e (DEPO-PROVERA) 150 mg/mL injection Inject into the muscle 11/14/19 21 Active hydrOXYzine (ATARAX) 10 mg/5 mL syrup Take by mouth 12/09/19 21 Active levonorgestreL (LILETTA) 20.1 mcg/24 hrs (6 yrs) 52 mg IUD by Intrauterine route 02/13/20 21 Active ferrous gluconate (FERGON) 240 (27 FE) MG tablet Take by mouth Ac tive fexofenadine (BABATUNDE) 180 MG tablet Take 1 tablet by mouth daily 04/20/20 21 Active fluticasone propionate (FLONASE) 50 mcg/actuation nasal spray by Nasal route 04/20/20 21 Active ketotifen (ZADITOR) 0.025 % (0.035 %) ophthalmic solution Apply to eye 04/20/20 21 Active zonisamide (ZONEGRAN) 50 MG capsule Take 200 mg by mouth daily Active SENNA 8.6 mg tabletIndications: Constipation, unspecified TAKE 1 TABLET BY MOUTH NIGHTLY 90 tablet 10/26/19 23 Active ibuprofen (MOTRIN) 400 MG tablet 400 mg 08/12/19 23 Active PNV no.95/ferrous fum/folic ac ( MULTIVITAMINS ORAL) Take 1 tablet by mouth 06/25/20 22 Active riboflavin, vitamin B2, 100 mg Tablet 100 mg 08/31/19 23 Active COVID-19 AT-HOME TEST Kit TEST 10/01/19 23 Active desmopressin (DDAVP) 0.1 MG tablet TAKE 1 TABLET BY MOUTH AT BEDTIME FOR 90 DAYS 02/29/20 23 Active naproxen (NAPROSYN) 500 MG tablet TAKE 1 TABLET BY MOUTH 2 TIMES DAILY WITH FOOD FOR 5 DAYS 12/28/19 23 Active ofloxacin (FLOXIN) 0.3 % otic solution INSTILL 10 DROPS INTO THE EAR TWICE DAILY FOR 10 DAYS 01/10/20 23 Active VITAMIN PLUS LOW IRON 27 mg iron- 1 mg Tablet Take 1 tablet by mouth daily 01/26/20 23 Active rizatriptan (MAXALT) 10 MG tablet TAKE 1 TABLET AT HEADACHE ONSET, MAY REPEAT DOSE ONCE IN 2 HOURS NEEDED FOR MIGRAINE 12/28/19 23 Active rizatriptan (MAXALT) 10 MG tablet See Instructions, PRN migraine, Special Instructions: 1 tab PO at headache onset may repeat dose once in 2 hours, Dispense Quantity: 12 tab, Refills: 0, Entered: 08/12/22 17:08:00 EST, [facility]/pharmacy #[id number] 08/12/19 23 Active clonazePAM (KLONOPIN) 2 MG disintegrating tablet 09/23/19 23 Active VALTOCO 15 mg/2 spray (7.5/0.1mL x 2) [place], Non-Aerosol Please see attached for detailed directions 12/25/19 23 Active hydrOXYzine (ATARAX) 10 MG tablet See Instructions, PRN as needed for anxiety, 1 tablet By Mouth PRN for anxiety. Please provide an extra labeled bottle for school, # 30 tablet, 0 Refills, Maintenance, 04/21/23 14:30:00 EDT, [facility]/pharmacy #[id number], 150, cm, 10/21/22 16:00:00 EDT, [place]... 11/06/19 Active hydrOXYzine (ATARAX) 25 MG tablet TAKE 1 TABLET BY MOUTH AT BEDTIME MAY TAKE 2 IF NEEDED 02/29/20 Active lamoTRIgine (LAMICTAL) 100 MG tablet TAKE 1 TABLET BY MOUTH IN MORNING ALONG WITH 200MG DIRECTED 02/28/20 Active lamoTRIgine (LAMICTAL) 200 MG tablet Please see attached for detailed directions 02/11/20 Active lamoTRIgine (LAMICTAL) 25 MG tablet TAKE 2 TABLETS EVERY MORNING WITH 200MG TABLETS FOR TOTAL DAILY DOSE OF 250MG IN AM AND 200MG IN PM 01/11/20 Active magnesium gluconate (MAGONATE) 27.5 mg magne- sium (500 mg) tablet 500 mg 08/31/19 Active QUEtiapine (SEROQUEL XR) 50 mg Tablet Extended Release 24 hr Please see attached for detailed directions 02/18/20 Active QUEtiapine (SEROQUEL) 25 MG tablet 1 TABLET BY MOUTH AT BEDTIME FOR 1 WEEK THEN INCREASE TO 2 TABS (50MG) BY MOUTH AT BEDTIME 01/28/20 Active risperiDONE (RISPERDAL) 0.25 MG tablet Please see attached for detailed directions 01/28/20 Active risperiDONE (RISPERDAL) 0.25 MG tablet See Instructions, 1 tablet By Mouth qhs w/1mg tab for TDD of 1.25mg, # 30 tablet, Refills 0, Tot. Refills 0, Maintenance, 12/03/22 15:48:00 EDT, Instructions Replace Required Details, Route to Pharmacy Electronically, [facility]/pharmacy #[id number], Partial fill... 12/04/19 Active risperiDONE (RISPERDAL) 1 MG tablet Take 1 mg by mouth 11/06/19 Active sertraline (ZOLOFT) 25 MG tablet TAKE 2 TABLET BY MOUTH DAILYTAKE WITH 100MG TABLET FOR TOTAL DAILY DOSE OF 150MG 02/20/20 Active sertraline (ZOLOFT) 25 MG tablet Take 50 mg by mouth 11/06/19 Active traZODone (DESYREL) 50 MG tablet Take 50 mg by mouth 11/06/19 23 Active famotidine (PEPCID) 20 MG tabletIndications: Gastro-esophageal reflux disease without esophagitis Take 1 tablet (20 mg) by mouth 2 (two) times daily as needed for Heartburn 180 tablet 08/17/19 24 Active polyethylene glycol (GAVILAX) 17 gram/dose powderIndications: Constipation, unspecified constipation type Take 17 g by mouth 2 (two) times daily DISSOLVE INTO WATER AND DRINK 510 g 5 08/17/19 24 Active polyethylene glycol (MIRALAX) 17 gram/dose powderIndications: Constipation, unspecified constipation type Mix 16 capfuls in 64 oz gatorade drink over 4 to 6 hours 595 g 3 12/13/19 24 Active linaCLOtide (LINZESS) 145 mcg Capsule capsuleIndications :Constipation, unspecified constipation type Take 1 capsule (145 mcg) by mouth daily 30 capsule 3 04/13/20 24 Active famotidine (PEPCID) 20 MG tabletIndications: Gastro-esophageal reflux disease without esophagitis TAKE 1 TABLET (20 MG) BY MOUTH TWICE A DAY 180 tablet 2 07/17/20 24 Active Active Problems No known active problems Encounters Date Type Department Care Team Description 07/11/2024 Refill [facility], [address] [address] Olga Terrell MD Gastro-esophageal reflux disease without esophagitis; Constipation, unspecified from Last 3 Months Social History Tobacco Use Types Packs/Day Years Used Date Smoking Tobacco: Never Smokeless Tobacco: Never Tobacco Cessation:Counseling Given: Not Answered Other Needs Answer Date Recorded Anything else about your child you'd like help w [facility]? Not on file 04/01/2023 Share good news about positive changes: Not on f ile 04/01/2023 Comments No Sex and Gender Information Value Date Recorded Sex Assigned at Not on file Legal Sex Female 2:11 PM EST Gender Identity Not on file Sexual Orientation Not on file Last Filed Vital Signs Vital Sign Reading Time Taken Comments Blood Pressure 106/74 12/13/2023 8:23 AM EDT Pulse 62 12/13/2023 8:23 AM EDT Temperature - - Respiratory Rate - - Oxygen Saturation - - Inhaled Oxygen Concentration - - Weight 68.5 kg (151 lb 0.2 oz) 12/13/2023 8:23 A M EDT Height 151.1 cm (4' 11.49 ) 12/13/2023 8:23 AM E DT Body Mass Index 30 12/13/2023 8:23 AM EDT Plan of Treatment Upcoming Encounters Date Type Department Care Team (Late st Contact Info) Description 10/19/2024 11:30 AM EDT Office Visit [facility], [place] [address] [place] [address] Olga Terrell MD [address] [place] [phone] Health Maintenance Due Date Last Done Comments DTaP/TDAP/TD VACCINES (1 - Tdap) 2010 ADOLESCENT HIV SCREENING 2016 COVID-19 Vaccine (2023-2 5 season) 2024 INFLUENZA (#1) 2024 NIRSEVIMAB VACCINES UNDER 8 MONTHS Aged Out No longer eligible based on patient's age to complete this topic Insurance [facility] MEDICAID [facility] MEDICAID Care Teams Public Health Dentist Relationship Specialty Start Date End Date Jennifer Weathers MD [address] [place] [address] PCP - General 08/15/19
--- OUTSIDE RECORDS SUMMARY | 2024-09-12 16:41 | XMS_ITS | Encounter Summary ---
[place] [address] Care Team Providers Care Cardboard Cutter Name Role Phone Jennifer Weathers MD Primary Care Provider [phone] Reason for Visit * Reason Comments Medication Refill Encounter Details Date Type Department Care Team (Late st Contact Info) Description 08/09/2021 Refill [facility] Gastroenterology, [address] [phone] Olga Terrell MD [address] [place] [phone] Constipation, unspecified Social History Tobacco Use Types Packs/Day Years Used Date Smoking Tobacco: Never Smokeless Tobacco: Never Comments No Sex and Gender Information Value Date Recorded Sex Assigned at Not on file Legal Sex Female 2:11 PM EST Gender Identity Not on file Sexual Orientation Not on file documented as of this encounter Miscellaneous Notes * Telephone Encounter - Robyn Oliver MA - 08/10/2021 9:52 AM EST Follow up appt scheduled for October 19 * Telephone Encounter - Inga Roldan RN - 08/10/2021 8:31 AM EST Last visit: 12/23/20 Next visit: no follow up visit scheduled Weight: 54.8 kg Allergies: reviewed Current dose: senna 1 tablet daily Please schedule follow up visit documented in this encounter Plan of Treatment Upcoming Encounters Date Type Department Care Team (Late st Contact Info) Description 10/19/2024 11:30 AM EDT Office Visit [facility], [place] [address] [place] [address] Olga Terrell MD [address] [place] [phone] documented as of this encounter Visit Diagnoses Diagnosis Constipation, unspecified documented in this encounter Care Teams Cardboard Cutter Relationship Specialty Start Date End Date Jennifer Weathers MD [address] [place] [phone] PCP - General 08/15/19 documented as of this encounter
--- OUTSIDE RECORDS SUMMARY | 2024-09-12 16:41 | XMS_ITS | Encounter Summary ---
[place] [address] Care Team Providers Care Product Applications Scientist Name Role Phone Jennifer Weathers MD Primary Care Provider [phone] Reason for Visit * Reason Comments Medication Refill Encounter Details Date Type Department Care Team (Late st Contact Info) Description 02/29/[address] [phone] Olga Terrell MD [address] [place] [address] Constipation, unspecified Social History Tobacco Use Types Packs/Day Years Used Date Smoking Tobacco: Never Smokeless Tobacco: Never Comments No Sex and Gender Information Value Date Recorded Sex Assigned at Not on file Legal Sex Female 2:11 PM EST Gender Identity Not on file Sexual Orientation Not on file documented as of this encounter Miscellaneous Notes * Telephone Encounter - Yue Boo RN - 02/29/2020 9:35 AM EDT Last visit: 02/22/20 Next visit: 04/18/20 Weight: 55.9 kg Allergies: reviewed Current dose: reviewed 02/22/20 office visit documented in this encounter Plan of Treatment Upcoming Encounters Date Type Department Care Team (Late st Contact Info) Description 10/19/2024 11:30 AM EDT Office Visit [facility], [place] [address] [place] [address] Olga Terrell MD [address] [place] [address] documented as of this encounter Visit Diagnoses Diagnosis Constipation, unspecified documented in this encounter Care Teams Product Applications Scientist Relationship Specialty Start Date End Date Jennifer Weathers MD [address] [place] [phone] PCP - General 08/15/19 documented as of this encounter
--- OUTSIDE RECORDS SUMMARY | 2024-09-12 16:41 | XMS_ITS | Encounter Summary ---
Author Organization [facility] Address [address] [place] [address] Care Team Providers Care Curator Name Role Phone Jennifer Weathers MD Primary Care Provider Reason for Visit * Reason Comments Medication Refill Encounter Details Date Type Department Care Team (Late st Contact Info) Description 07/21/2022 Refill [facility], [place] [address] [place] [address] Olga Terrell MD [address] [place] [address] Constipation, unspecified constipation type; Constipation, unspecified Social History Tobacco Use Types Packs/Day Years Used Date Smoking Tobacco: Never Smokeless Tobacco: Never Comments No Sex and Gender Information Value Date Recorded Sex Assigned at Not on file Legal Sex Female 2:11 PM EST Gender Identity Not on file Sexual Orientation Not on file documented as of this encounter Miscellaneous Notes * Telephone Encounter - Yue Boo RN - 07/22/2022 3:34 PM EST Last appt: 04/20/22 Next appt: 10/19/22 Weight: 58.1 kg Allergies: reviewed Current dosage: Senna -1 pill once daily Miralax 1 capful daily as needed for constipation documented in this encounter Plan of Treatment Upcoming Encounters Date Type Department Care Team (Late st Contact Info) Description 10/19/2024 11:30 AM EDT Office Visit [facility], [place] [address] [place] [address] Olga Terrell MD [address] [place] [phone] documented as of this encounter Visit Diagnoses Diagnosis Constipation, unspecified constipation type documented in this encounter Care Teams Curator Relationship Specialty Start Date End Date Jennifer Weathers MD [address] [place] [id number] PCP - General 08/15/19 documented as of this encounter
--- OUTSIDE RECORDS SUMMARY | 2024-09-12 16:41 | XMS_ITS | Encounter Summary ---
Author Organization [facility] Address [address] [place] [address] Phone Care Team Providers Care Security Controls Assessor Name Role Phone Jennifer Weathers MD Primary Care Provider [phone] Encounter Details Date Type Department Care Team (Late st Contact Info) Description 03/16/2024 Documentation Only [facility] [address] [place] [address] Derrek Salas MD [address] [place] [address] [place] [address] Social History Tobacco Use Types Packs/Day Years [...] on filedocumented in this encounter Care Teams Security Controls Assessor Relationship Specialty Start Date End Date Jennifer Weathers MD [address] [place] [address] PCP - General 05/22/19 documented as of this encounter
--- OUTSIDE RECORDS SUMMARY | 2024-09-12 16:41 | XMS_ITS | Encounter Summary ---
[place] [address] Care Team Providers Care Installation Specialist Name Role Phone Jennifer Weathers MD Primary Care Provider [phone] Reason for Visit * Reason Comments Medication Refill Encounter Details Date Type Department Care Team (Late st Contact Info) Description 09/16/2020 Refill [facility], [address] [phone] Olga Terrell MD [address] [place] [phone] Constipation, unspecified Social History Tobacco Use Types Packs/Day Years Used Date Smoking Tobacco: Never Smokeless Tobacco: Never Comments No Sex and Gender Information Value Date Recorded Sex Assigned at Not on file Legal Sex Female 2:11 PM EST Gender Identity Not on file Sexual Orientation Not on file documented as of this encounter Miscellaneous Notes * Telephone Encounter - Yue Boo RN - 09/16/2020 1:18 PM EST Last visit: 05/26/20 Next visit: Follow-up in 3 to 4 months after last appt. Weight: 55.9 kg Allergies: reviewed Current dose: Senna - 1 tablet daily. documented in this encounter Plan of Treatment Upcoming Encounters Date Type Department Care Team (Late st Contact Info) Description 10/19/2024 11:30 AM EDT Office Visit [facility], [place] [address] [place] [address] Olga Terrell MD [address] [place] [address] documented as of this encounter Visit Diagnoses Diagnosis Constipation, unspecified documented in this encounter Care Teams Installation Specialist Relationship Specialty Start Date End Date Jennifer Weathers MD [address] [place] [phone] PCP - General 08/15/19 documented as of this encounter
--- OUTSIDE RECORDS SUMMARY | 2024-09-12 16:41 | XMS_ITS | Encounter Summary ---
Author Organization [facility] Address [address] [place] [address] Care Team Providers Care Heavy Duty Truck Mechanic Name Role Phone Jennifer Weathers MD Primary Care Provider [phone] Reason for Visit * Reason Comments Medication Refill Encounter Details Date Type Department Care Team (Late st Contact Info) Description 11/02/2021 Refill [facility] Gastro[facility] [phone] Olga Terrell MD [address] [place] [phone] Constipation, unspecified; Gastro-esophageal reflux disease without esophagitis Social History [...] Telephone Encounter - Yue Boo RN - 11/03/2021 8:01 AM EDT Last visit: 10/19/21 Next visit: 04/20/22 Weight: 57.8 kg Allergies: reviewed Current dose: Famotidine 20 mg po twice daily as needed SENNA 8.6 mg tablet TAKE 1 TABLET BY MOUTH EVERY DAY AT NIGHT documented in this encounter Plan of Treatment Upcoming Encounters Date Type Department Care Team (Late st Contact Info) Description 10/19/2024 11:30 AM EDT Office Visit [facility], [place] [address] [place] [address] Olga Terrell MD [address] [place] [phone] documented as of this encounter Visit Diagnoses Diagnosis Constipation, unspecified Gastro-esophageal reflux disease without esophagitis documented in this encounter Care Teams Heavy Duty Truck Mechanic Relationship Specialty Start Date End Date Jennifer Weathers MD [address] [place] [phone] PCP - General 08/15/19 documented as of this encounter
== END 2024-09-12 14:49 | disposition home or self-care (01) ==
PROVIDERS: PCP Pediatrics; Visit Provider Pediatrics
DX: H65.02 Acute serous otitis media, left ear (principal); G40.909 Epilepsy, unspecified, not intractable, without status epilepticus; G80.9 Cerebral palsy, unspecified; M26.12 Other jaw asymmetry; H93.25 Central auditory processing disorder; F79 Unspecified intellectual disabilities

== ENCOUNTER 2024-10-04 08:54 | Outpatient (AMB) | payer OTHER, SELFPAY ==
--- NOTE | 2024-10-04 09:08 | A.OFFVISP_ITS ---
Pediatric Intake Visit Reasons: TH-f/u orthotic helmet/seizure d/o [phone] Allergies cat dander Allergy (Mild, Verified 03/28/24 09:11) Watery Eye feathers Allergy (Mild, Verified 03/28/24 09:11) Watery Eye mold Allergy (Mild, Verified 03/28/24 09:11) Watery Eye acetaminophen Allergy (Unknown, Verified 03/28/24 09:11) Hives tree and shrub pollen Allergy (Unknown, Verified 03/28/24 09:11) Watery Eye cockroach Allergy (Mild, Uncoded 03/28/24 09:11) Watery Eye dust mites Allergy (Mild, Uncoded 03/28/24 09:11) Watery Eye Mouse Allergy (Mild, Uncoded 03/28/24 09:11) Itchy Eyes environmental Allergy (Unknown, Uncoded 03/28/24 09:11) Watery Eye lemon, [place], citrus Allergy (Unknown, Uncoded 03/28/24 09:11) rash red apples, peaches Allergy (Unknown, Uncoded 03/28/24 09:11) hives HPI HPI TH-f/u orthotic helmet/seizure d/o [phone]: Details: History of Present Illness The patient is a 19-year-old female presenting with orthotic resizement needs. There is significant bilateral discomfort and inadequate support from existing orthotics. Current orthotics are bilateral AFOs and have not been assessed for years, with pain reported in both lower extremities with use and without use. There is some confusion as she does not need a helmet at all, it is not clear why the request for helmet was sent over from [facility] since the referral was for orthotics only. A request for a new wheelchair was made due to size and suitability issues. This was sent to [facility] but the family has not heard anything about the status of this. The patient's daily function is affected by her diagnosis of cerebral palsy, which involves both gross and fine motor skill challenges owing to her condition. Caregiver notes a lack of transitional support from pediatric to adult services, particularly post-COVID, complicating further interventions and continuity of care. The patient has aged out of [facility], creating a gap in coordinated care. [facility] Medical History Frequent UTI Kidney stones Schizoaffective disorder Autism Anxiety OCD (obsessive compulsive disorder) Intellectual disability Migraines Chiari malformation type I Central auditory processing disorder Bladder incontinence Cerebral palsy Seizure disorder Surgical History No pertinent past surgical history Family History Mother Substance abuse Depression Anxiety Alcohol abuse Cancer Kidney disease Seizures Asthma ADHD Father Kidney disease ADHD Social History Household Members: Spouse and Other Household Members Other:: w/spouse in [place] w/e's & vacations o/w in [facility] w/ mom & sibs/foster sib Alcohol intake: never Patient Tobacco Use Status: Never used Tobacco Cognitive needs: No Hearing needs: No Vision needs: No Review of Systems Const Reports as per HPI Neuro Reports as per HPI Pediatric Exam Const Constitutional General: cooperative and no acute distress Telehealth Telehealth Telehealth Platform: [facility] Location of provider rendering services: other Location of patient: address on file Patient Identification confirmed using: Name, : Yes Telehealth method: video Patient verbally consented to treatment: Yes Patient verbally consented to billing insurance company: Yes Patient informed of any privacy concerns related to visit: Yes Minutes spent on Phone/Video with Pt.: 20 Assessment & Plan Assessment & Plan (1) Cerebral palsy: Code(s): G80.9 - Cerebral palsy, unspecified Category: Medical Plan Patient was informed and verbally consented to the use of an ambient scribe for clinic note documentation during this visit. 1. Cerebral Palsy - Update orthotics for support and pain relief. - Await wheelchair assessment. Discussion Notes I discussed with the patient and her caregiver the need to update her orthotic support due to inadequacy of current devices and the associated discomfort. Clarification regarding these needs with [place] for an orthotic intervention was emphasized. It was acknowledged that both orthotics and wheelchair feedback from [facility] are pending and vital for enhancing mobility and comfort. Challenges related to transitioning from pediatric services were highlighted due to pandemic constraints and absence of structured support. Patient Instructions Coding Level of Care Code Tele Est Pt Level 3 (28551) Diagnoses Cerebral palsy G80.9
== END 2024-10-04 08:55 | disposition home or self-care (01) ==
LOC: HO.HMCP 08:55
PROVIDERS: PCP Pediatrics; Visit Provider Pediatrics
DX: G80.9 Cerebral palsy, unspecified (principal)

== ENCOUNTER → 2024-10-04 08:54 | Outpatient (BNVA) | payer OTHER, SELFPAY | PROVIDERS: PCP Pediatrics; Visit Provider Pediatrics ==

== ENCOUNTER 2024-10-31 14:13 | Outpatient (AMB) | payer OTHER, SELFPAY ==
--- NOTE | 2024-10-31 14:19 | MHC.OFFVIS ---
Intake Visit Reasons: Follow up Intake Note: Patient is present for F/U Urology Medication:VITAMIN B6,VITAMIN B2,TERAZOSIN Antibiotic Allergy:NONE Blood Thinner:NONE Straight Knife Cutter Machine Required: No Allergies cat dander Allergy (Mild, Verified 10/31/24 14:22) Watery Eye feathers Allergy (Mild, Verified 10/31/24 14:22) Watery Eye mold Allergy (Mild, Verified 10/31/24 14:22) Watery Eye acetaminophen Allergy (Unknown, Verified 10/31/24 14:22) Hives tree and shrub pollen Allergy (Unknown, Verified 10/31/24 14:22) Watery Eye cockroach Allergy (Mild, Uncoded 10/31/24 14:22) Watery Eye dust mites Allergy (Mild, Uncoded 10/31/24 14:22) Watery Eye Mouse Allergy (Mild, Uncoded 10/31/24 14:22) Itchy Eyes environmental Allergy (Unknown, Uncoded 10/31/24 14:22) Watery Eye lemon, [place], citrus Allergy (Unknown, Uncoded 10/31/24 14:22) rash red apples, peaches Allergy (Unknown, Uncoded 10/31/24 14:22) hives HPI Comments Details: Paola is a pleasant female. She is a patient of Dr. Weathers. She seen for the following urologic issues - neurogenic bladder - nephrolithiasis - enuresis Six-month follow-up Prior prescriptions for terazosin and myrbetriq Good response to terazosin - has had issues since it ran out Not taking Myrbetriq Will refill terazosin Does find that uses risperidone with sertraline each evening Has bladder leakage when uses trazodone Will act to reduce fluid intake after 06:00 o'clock Also discussion of holding trazodone in order to sense urinary urge Does state that bowel habits are improved with bowel motion every day to every other day on combination MiraLax and senna Background of cerebral palsy with epilepsy and schizoaffective disorder with autism On significant number of medications for seizure control Nephrolithiasis Imaging 02/05 4 mm left upper pole - 06/08 US with 4mm left stone 24 hour urine - 02/05 good volume, low citrate Encouraged lemon supplementation Enuresis Persistent Secondary to antiseizure medications Failure of both desmopressin and Myrbetriq Behavioral modification regarding fluid intake is mainstay of management Neurogenic bladder Wears liners during the day Reports reasonable control Poor response to oxybutynin Does manage GI constipation with MiraLax [facility] Medical History (Updated 10/31/24 @ 14:53 by Iron Veliz MD) Frequent UTI Kidney stones Schizoaffective disorder Autism Anxiety OCD (obsessive compulsive disorder) Intellectual disability Migraines Chiari malformation type I Central auditory processing disorder Bladder incontinence Cerebral palsy Seizure disorder Surgical History No pertinent past surgical history Family History Mother Substance abuse Depression Anxiety Alcohol abuse Cancer Kidney disease Seizures Asthma ADHD Father Kidney disease ADHD Social History Household Members: Spouse and Other Household Members Other:: w/spouse in [place] w/e's & vacations o/w in [facility] w/ mom & sibs/foster sib Alcohol intake: never Patient Tobacco Use Status: Never used Tobacco Cognitive needs: No Hearing needs: No Vision needs: No Review of Systems Const Denies chills and Denies fever(s) Card Reports no additional complaints and Denies syncope Resp Denies cough GI Denies abdominal pain and Denies heartburn Reports as per HPI and Denies change in libido Neuro Denies syncope Psych Denies change in libido Endo Denies change in libido Physical Exam Const General: cooperative, healthy appearing, comfortable and no acute distress Orientation/consciousness: patient oriented x3 HEENT Face and sinus: Yes normal facial exam Mouth: moist mucous membranes Neck Neck: Yes normal visual inspection, Yes full ROM and Yes trachea midline Chest Chest palpation & inspection: normal inspection of the chest Resp Effort & Inspection: normal respiratory effort, able to speak in complete sentences and no respiratory distress GI Inspection: Yes normal to inspection Back/Spine/Pelvis Cervical Spine: normal cervical lordosis Thoracic/Lumbar Spine: thoracic and lumbar spine normal to inspection Skin General skin exam: no rashes or lesions noted Neuro General: patient oriented x3, gait normal, tone normal and moves all extremities Extrem General: Yes normal to inspection and Yes capillary refill normal Assessment & Plan Assessment & Plan (1) Kidney stones: Comment: 06/08 US persistent 4mm left stone Code(s): N20.0 - Calculus of kidney Category: Medical (2) Enuresis: Comment: Good response to DDAVP Code(s): R32 - Unspecified urinary incontinence Category: Medical (3) Bladder incontinence: Comment: Response to terazosin 1 mg Code(s): R32 - Unspecified urinary incontinence Category: Medical Qualifiers: Urinary Incontinence type: functional incontinence Qualified Code(s): R39.81 - Functional urinary incontinence Plan Six-month follow-up tele Orders: Orders AMB Urinalysis Automated Today Z13.9 - Encounter for screening, unspecified Medications: Refilled terazosin 1 mg PO BEDTIME 90 days 90 caps 1RF R39.12 - Poor urinary stream Patient Instructions: This note is constructed using voice recognition software. While every effort has been made to ensure accuracy motor generator set operator errors may have been included. Imaging studies, laboratory and physical exam results were discussed and reviewed in detail. No major barriers to patient understanding were identified. An opportunity to ask questions regarding the treatment plan was provided. All questions were answered. The patient expressed understanding and agreement with the above treatment plan. The patient is aware they should contact our office by phone for worsening of their current condition or the appearance of new urologic symptoms. Compliance is encouraged with any medications and followup testing that is ordered. It is a privilege to participate in the urologic care of your patient. If you have any questions or concerns regarding treatment for the above conditions, or other urologic issues, please do not hesitate to contact me. The office telephone contact is [phone]. Sincerely, Dr Iron Veliz MD, [facility] - Urology Compassionate Specialist Care for the Genitourinary System Coding Level of Care Code Est Pt Level 3 (05515) Complex EM visit Add On G2211 Diagnoses Kidney stones N20.0 Enuresis R32 Functional urinary incontinence R39.81 Urinary Incontinence type: functional incontinence
--- OUTSIDE RECORDS SUMMARY | 2024-10-31 16:57 | XMS_ITS | Encounter Summary ---
Author Organization [facility] Address [address] [place] [address] Care Team Providers Care Electrical Assembly Supervisor Name Role Phone Jennifer Weathers MD Primary Care Provider [phone] Reason for Visit * Reason Comments Medication Refill Encounter Details Date Type Department Care Team ([facility] st Contact Info) Description 05/28/2020 Refill [facility] Gastroenterology, [address] [phone] Olga Terrell MD [address] [place] [phone] Constipation, unspecified Social History Tobacco Use Types [...] documented in this encounter Plan of Treatment Not on file documented as of this encounter Visit Diagnoses Diagnosis Constipation, unspecified documented in this encounter Care Teams Electrical Assembly Supervisor Relationship Specialty Start Date End Date Jennifer Weathers MD [address] [place] [address] PCP - General 08/15/19 documented as of this encounter
--- OUTSIDE RECORDS SUMMARY | 2024-10-31 16:57 | XMS_ITS | Encounter Summary ---
Author Organization [facility] Address [address] [place] [address] Care Team Providers Care Administration Internship Name Role Phone Jennifer Weathers MD Primary Care Provider [phone] Reason for Visit * Reason Comments Medication Refill Encounter Details Date Type Department Care Team ([facility] st Contact Info) Description 01/01/2020 Refill [facility] Gastroenterology, [address] [phone] Olga Terrell MD [address] [place] [address] [phone] Gastroesophageal reflux disease, esophagitis presence not specified [...] Miscellaneous Notes * Telephone Encounter - Yue oBo RN - 01/01/2020 1:52 PM EDT Last visit: 10/05/2019 Next visit: Needs a follow up appt. Will send to [facility] to book Weight: 54.7 kg Allergies: [...] specified documented in this encounter Care Teams Administration Internship Relationship Specialty Start Date End Date Jennifer Weathers MD [address] [place] [address] PCP - General 08/15/19 documented as of this encounter
--- OUTSIDE RECORDS SUMMARY | 2024-10-31 16:57 | XMS_ITS | Encounter Summary ---
Author Organization [facility] Address [address] [place] [address] Care Team Providers Care Certified Alcohol And Drug Counselor Name Role Phone Jennifer Weathers MD Primary Care Provider [phone] Reason for Visit * Reason Comments Medication Refill Encounter Details Date Type Department Care Team ([facility] st Contact Info) Description 01/12/2021 Refill [facility] Gastroenterology, [address] [phone] Olga Terrell MD [address] [place] [phone] Constipation, unspecified Social History Tobacco Use Types [...] unspecified documented in this encounter Care Teams Certified Alcohol And Drug Counselor Relationship Specialty Start Date End Date Jennifer Weathers MD [address] [place] [address] PCP - General 08/15/19 documented as of this encounter
--- OUTSIDE RECORDS SUMMARY | 2024-10-31 16:57 | XMS_ITS | Encounter Summary ---
Author Organization [facility] Address [address] [place] [address] Care Team Providers Care Enterprise Architect Manager Name Role Phone Jennifer Weathers MD Primary Care Provider [phone] Reason for Visit * Reason Comments Medication Refill Encounter Details Date Type Department Care Team (Late st Contact Info) Description 12/03/2019 Refill [facility] Gastroenterology, [place] [address] [place] [address] Olga Terrell MD [address] [place] [phone] Constipation, unspecified constipation type Social History Tobacco [...] type documented in this encounter Care Teams Enterprise Architect Manager Relationship Specialty Start Date End Date Jennifer Weathers MD [address] [place] [address] PCP - General 08/15/19 documented as of this encounter
--- OUTSIDE RECORDS SUMMARY | 2024-10-31 16:57 | XMS_ITS | Encounter Summary ---
Author Organization [facility] Address [address] [place] [address] Care Team Providers Care Wet Silk Hanger Name Role Phone Jennifer Weathers MD Primary Care Provider [phone] Reason for Visit * Reason Comments Medication Refill Encounter Details Date Type Department Care Team (Late st Contact Info) Description 05/18/2020 Refill [facility] Gastroenterology, [place] [address] [place] [address] Olga Terrell MD [address] [place] [phone] Poor appetite Social History Tobacco Use Types [...] kg Allergies: reviewed Current dose: verified 02/22/20 Dotty please call family to reschedule no showed appt thank you. documented in this encounter Plan of Treatment Not on file documented as of this encounter Visit Diagnoses Diagnosis Poor appetite Anorexia documented in this encounter Care Teams Wet Silk Hanger Relationship Specialty Start Date End Date Jennifer Weathers MD [address] [place] [address] PCP - General 08/15/19 documented as of this encounter
--- OUTSIDE RECORDS SUMMARY | 2024-10-31 16:57 | XMS_ITS | Encounter Summary ---
Author Organization [facility] Address [address] [place] [address] Care Team Providers Care Area Captain Name Role Phone Jennifer Weathers MD Primary Care Provider [phone] Reason for Visit * Reason Comments Medication Refill Encounter Details Date Type Department Care Team ([facility] st Contact Info) Description 02/29/2020 Refill [facility] Gastroenterology, [address] [phone] Olga Terrell MD [address] [place] [phone] Constipation, unspecified Social History Tobacco Use Types [...] unspecified documented in this encounter Care Teams Area Captain Relationship Specialty Start Date End Date Jennifer Weathers MD [address] [place] [address] PCP - General 08/15/19 documented as of this encounter
--- OUTSIDE RECORDS SUMMARY | 2024-10-31 16:57 | XMS_ITS | Encounter Summary ---
Author Organization [facility] Address [address] [place] [address] Care Team Providers Care Furniture Cleaner Name Role Phone Jennifer Weathers MD Primary Care Provider [phone] Reason for Visit * Reason Comments Medication Refill Encounter Details Date Type Department Care Team ([facility] st Contact Info) Description 11/28/2019 Refill [facility] Gastroenterology, [address] [phone] Olga Terrell MD [address] [place] [address] [phone] Constipation, unspecified constipation type Social History Tobacco [...] stated she was not on the dulcolax Dental Claims Processor called mom and she stated they are NOT on Dulcolax. Refuse med please * Telephone Encounter - Joaquina Jessica RN - 11/28/2019 9:25 AM EDT Per chart not taking? documented in this encounter Plan of Treatment Not on file documented as of this encounter Visit Diagnoses Diagnosis Constipation, unspecified constipation type documented in this encounter Care Teams Furniture Cleaner Relationship Specialty Start Date End Date Jennifer Weathers MD [address] [place] [address] PCP - General 08/15/19 documented as of this encounter
--- OUTSIDE RECORDS SUMMARY | 2024-10-31 16:57 | XMS_ITS | Encounter Summary ---
Author Organization [facility] Address [address] [place] [address] Care Team Providers Care Resin Mixer Name Role Phone Jennifer Weathers MD Primary Care Provider [phone] Reason for Visit * Reason Comments Medication Refill Encounter Details Date Type Department Care Team ([facility] st Contact Info) Description 08/09/2021 Refill [facility] Gastroenterology, [address] [phone] Olga Terrell MD [address] [place] [address] [phone] Constipation, unspecified Social History Tobacco Use Types [...] unspecified documented in this encounter Care Teams Resin Mixer Relationship Specialty Start Date End Date Jennifer Wetahers MD [address] [place] [address] PCP - General 08/15/19 documented as of this encounter
--- OUTSIDE RECORDS SUMMARY | 2024-10-31 16:57 | XMS_ITS | Encounter Summary ---
Author Organization [facility] Address [address] [place] [address] Care Team Providers Care Line Mover Name Role Phone Jennifer Weathers MD Primary Care Provider [phone] Reason for Visit * Reason Comments Medication Refill Encounter Details Date Type Department Care Team ([facility] st Contact Info) Description 04/26/2021 Refill [facility] Gastroenterology, [place] [phone] Katya Arthur MD [address] [place] [address] [phone] Constipation, unspecified Social History Tobacco Use Types [...] unspecified documented in this encounter Care Teams Line Mover Relationship Specialty Start Date End Date Jennifer Weathers MD [address] [place] [address] PCP - General 08/15/19 documented as of this encounter
--- OUTSIDE RECORDS SUMMARY | 2024-10-31 16:57 | XMS_ITS | Encounter Summary ---
Author Organization [facility] Address [address] [place] [address] Care Team Providers Care Case Management Associate Name Role Phone Jennifer Weathers MD Primary Care Provider [phone] Reason for Visit * Reason Comments Medication Refill Encounter Details Date Type Department Care Team ([facility] st Contact Info) Description 09/16/2020 Refill [facility] Gastroenterology, [address] [phone] Olga Terrell MD [address] [place] [address] [phone] Constipation, unspecified Social History Tobacco Use Types [...] unspecified documented in this encounter Care Teams Case Management Associate Relationship Specialty Start Date End Date Jennifer Weathers MD [address] [place] [address] PCP - General 08/15/19 documented as of this encounter
--- OUTSIDE RECORDS SUMMARY | 2024-10-31 16:57 | XMS_ITS | Encounter Summary ---
Author Organization [facility] Address [address] [place] [address] Care Team Providers Care Metal Burnisher Name Role Phone Jennifer Weathers MD Primary Care Provider [phone] Reason for Visit * Reason Comments Medication Refill Encounter Details Date Type Department Care Team ([facility] st Contact Info) Description 11/02/2021 Refill [facility] Gastroenterology, [address] [phone] Olga Terrell MD [address] [place] [address] [phone] Constipation, unspecified; Gastro-esophageal reflux disease without esophagitis [...] esophagitis documented in this encounter Care Teams Metal Burnisher Relationship Specialty Start Date End Date Jennifer Weathers MD [address] [place] [address] PCP - General 08/15/19 documented as of this encounter
--- OUTSIDE RECORDS SUMMARY | 2024-10-31 16:57 | XMS_ITS | Encounter Summary ---
Author Organization [facility] Address [address] [place] [address] Care Team Providers Care Copy Reader Name Role Phone Jennifer Weathers MD Primary Care Provider [phone] Reason for Visit * Reason Comments Medication Refill Encounter Details Date Type Department Care Team (Late st Contact Info) Description 02/10/2021 Refill [facility] Gastroenterology, [place] [address] [place] [address] Olga Terrell MD [address] [place] [phone] Gastro-esophageal reflux disease without esophagitis Social History [...] esophagitis documented in this encounter Care Teams Copy Reader Relationship Specialty Start Date End Date Jennifer Weathers MD [address] [place] [address] PCP - General 08/15/19 documented as of this encounter
--- OUTSIDE RECORDS SUMMARY | 2024-10-31 16:58 | XMS_ITS | Clinical Summary ---
Author Organization [facility] Address [address] [place] [address] Care Team Providers Care Drill Grinder Name Role Phone Jennifer Weathers MD Primary Care Provider [phone] Source Comments Please note that some or [...] so, obtain the minor's consent prior to disclosure.[facility] Allergies Active Allergy Reactions Criticality Noted Date Comments Acetaminophen Other (See Comments) 10/05/2018 Drug interaction Other reaction(s): interaction with seizure meds Other Reaction(s): interaction with seizure meds Drug interaction ??Drug interaction ??Drug interaction Other reaction(s): interaction with seizure meds ??Drug interaction Apple Other (See Comments) 04/28/2017 Nausea with red apples that are fresh, can eat processed and fresh green apples Other reaction(s): OTHER Vomiting with apple and rash ( red) Can eat green and apple juice Vomiting with apple and rash ( red) Can eat green and apple juice Nausea with red apples that are fresh, can eat processed and fresh green apples Nausea with red apples that are fresh, can eat processed and fresh green apples ??Other reaction(s): OTHER Vomiting with apple and rash ( red) Can eat green and apple juice Nausea with red apples that are fresh, can eat processed and fresh green apples Apple Juice 04/28/2017 Vomiting with apple and rash Nausea with red apples that are fresh, can eat processed and fresh green apples Nausea with red apples that are fresh, can eat processed and fresh green apples Nausea with red apples that are fresh, can eat processed and fresh green apples Cat Dander 12/23/2020 Cat Hair Standardized Allergenic Extract 12/23/2020 Banquete And Derivatives Rash Low 10/05/2018 Contact dermatitis Codeine 12/12/2019 Gluten 12/12/2019 [place]ana 03/07/2023 Mold 08/15/2017 Reaction Type from PowerChart: Allergy; Multivit With Min-Folic Acid 12/23/2020 red apples, peaches, citrus fruits Nutritional Supplement-Fiber 10/19/2021 Bent 10/19/2021 Other reaction(s): 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, Pineapple anaphylaxis Pineapple 12/12/2019 Other reaction(s): citrus fruits Other Reaction(s): citrus fruits Other reaction(s): citrus fruits Pollen Extracts 12/23/2020 [...] 20 Active sennosides 15 mg Tablet, Chewable 09/07/19 19 Active sertraline (ZOLOFT) 50 MG [...] Active Additional Information Patient not taking.Reported on 10/19/2024 omeprazole (PRILOSEC) 20 MG capsuleIndications :Gastroesophageal reflux disease, esophagitis presence not specified TAKE 1 CAPSULE BY MOUTH EVERY DAY 30 capsule 1 01/01/20 20 Active magnesium gluconate 27 mg magnesium (500 mg) [...] LAMICTAL ODT 100 mg Tablet, Rapid Dissolve 12/30/19 20 Active multivitamin tablet Take by mouth Active omeprazole (PRILOSEC) 20 MG capsule 08/24/19 20 Active polyethylene glycol (MIRALAX) 17 [...] Active Additional Information Patient not taking.Reported on 10/19/2024 cloBAZam (ONFI) 20 mg tablet 50 mg Active medroxyPROGESTERon e (DEPO-PROVERA) 150 mg/mL injection mg, IM, Entered: 12/22/20 11:26:00 EDT 12/23/19 Active diazepam (VALIUM) 5 mg/mL injection Inject [...] 23 Active naproxen (NAPROSYN) 500 MG tablet 12/28/19 23 Active ofloxacin (FLOXIN) 0.3 % [...] tab, Refills: 0, Entered: 08/12/22 17:08:00 EST, [facility]/pharmacy #[id number] 08/12/19 Active clonazePAM (KLONOPIN) 2 MG disintegrating tablet 09/23/19 Active VALTOCO 15 mg/2 spray (7.5/0.1mL x 2) Melvin, Non-Aerosol Please see attached for detailed directions 12/25/19 Active hydrOXYzine (ATARAX) 10 MG tablet See Instructions, PRN as needed for anxiety, 1 tablet By Mouth PRN for anxiety. Please provide an extra labeled bottle for school, # 30 tablet, 0 Refills, Maintenance, 11/05/22 14:30:00 EDT, [facility]/pharmacy #[id number], 150, cm, 10/21/22 16:00:00 EDT, [facility]... 11/06/19 Active hydrOXYzine (ATARAX) 25 MG tablet TAKE 1 TABLET BY MOUTH AT BEDTIME MAY TAKE 2 IF NEEDED 02/29/20 Active lamoTRIgine (LAMICTAL) 100 MG tablet TAKE 1 TABLET BY MOUTH IN MORNING ALONG WITH 200MG DIRECTED 02/28/20 Active lamoTRIgine (LAMICTAL) 200 MG tablet Please see attached for detailed directions 02/11/20 23 Active lamoTRIgine (LAMICTAL) 25 MG tablet 01/11/20 Active magnesium gluconate (MAGONATE) 27.5 mg magne- sium (500 mg) tablet 500 mg 08/31/19 Active QUEtiapine (SEROQUEL XR) 50 mg Tablet Extended Release 24 hr Please see attached for detailed directions 02/18/20 23 Active QUEtiapine (SEROQUEL) 25 MG tablet 01/28/20 23 Active risperiDONE (RISPERDAL) 0.25 MG tablet Please see attached for detailed directions 01/28/20 23 Active risperiDONE (RISPERDAL) 0.25 MG tablet See Instructions, 1 tablet By Mouth qhs w/1mg tab for TDD of 1.25mg, # 30 tablet, Refills 0, Tot. Refills 0, Maintenance, 12/03/22 15:48:00 EDT, Instructions Replace Required Details, Route to Pharmacy Electronically, [facility]/pharmacy #[id number], Partial fill... 12/04/19 23 Active risperiDONE (RISPERDAL) 1 MG tablet Take 1 mg by mouth 11/06/19 23 Active sertraline (ZOLOFT) 25 MG tablet 02/20/20 23 Active sertraline (ZOLOFT) 25 MG tablet Take 50 mg by mouth 11/06/19 23 Active traZODone (DESYREL) 50 MG tablet Take [...] DRINK 510 g 5 08/17/19 24 Active Additional Information Patient not taking.Reported on 10/19/2024 polyethylene glycol (MIRALAX) 17 gram/dose powderIndications: Constipation, unspecified constipation type Mix 16 capfuls in 64 oz gatorade drink over 4 to 6 hours 595 g 3 12/13/19 24 Active Additional Information Patient not taking.Reported on 10/19/2024 linaCLOtide (LINZESS) 145 mcg Capsule capsuleIndications :Constipation, unspecified constipation type Take 1 capsule (145 mcg) by mouth daily 30 capsule 3 04/13/20 24 Active famotidine (PEPCID) 20 MG tabletIndications: Gastro-esophageal reflux disease without esophagitis TAKE 1 TABLET (20 MG) BY MOUTH TWICE A DAY 180 tablet 2 07/17/20 24 Active medroxyprogesteron e acetate (DEPO-PROVERA IM) Inject 150 mg into the muscle 05/31/20 23 Active magnesium gluconate (MAGONATE) 27.5 mg magne- sium (500 mg) tablet Take 27.5 mg by mouth 09/26/19 25 Active linaCLOtide (LINZESS) 72 mcg Capsule capsule 30 each, 0 Refill(s), TAKE 1 CAPSULE BY MOUTH EVERY DAY, 0 Refills, 01/30/24 4:43:00 PM EDT, Partial fill upon patient request if the prescription is for a schedule II opioid drug. 01/30/20 24 Active lamoTRIgine (LAMICTAL) 200 MG tablet Take 200 mg by mouth 08/16/19 25 Active lamoTRIgine (LAMICTAL) 100 MG tablet Take 100 mg by mouth 09/12/19 25 Active terazosin (HYTRIN) 1 MG capsule TAKE 1 MG (1 CAPSULE) AT BEDTIME FOR 90 DAYS Active oseltamivir (TAMIFLU) 75 MG capsule TAKE 1 CAPSULE BY MOUTH TWICE DAILY FOR 5 DAYS 09/18/19 25 Active medroxyPROGESTERon e (DEPO-PROVERA) 150 mg/mL injection Inject 1 mL into the muscle 06/01/20 24 Active PNV,calcium 95-qtux-vedmj acid 27 mg iron- 1 mg Tablet See Instructions, TAKE 1 TABLET BY MOUTH EVERY DAY, # 30 tablet, 3 Refills, Maintenance, 10/25/23 15:46:00 EDT, [facility], 30, TAKE 1 TABLET BY MOUTH EVERY DAY, 158, cm, 05/31/23 15:01:00 EST, Height, 61, kg, 12/31/22 12:13:00 EDT, Dry Weight 10/25/19 24 Active PNV,calcium 06-sosw-qcdsq acid 27 mg iron- 1 mg Tablet Take 1 tablet by mouth 05/22/20 24 Active riboflavin, vitamin B2, 100 mg Tablet Take 100 mg by mouth 09/26/19 25 Active linaCLOtide (LINZESS) 72 mcg Capsule capsuleIndications :Constipation, unspecified constipation type Take 1 capsule (72 mcg) by mouth daily 30 capsule 6 10/20/19 25 025 Active famotidine (PEPCID) 20 MG tabletIndications: Constipation, unspecified constipation type Take 1 tablet (20 mg) by mouth 2 (two) times daily 60 tablet 6 10/20/19 25 025 Active bisacodyL (DULCOLAX) 5 mg EC tabletIndications: Constipation, unspecified constipation type Take 2 tablets (10 mg) by mouth daily as needed for constipation. 4 tablet 10/13/19 25 025 Active Problems No known active problems Encounters Date Type Department Care Team Description 10/19/2024 11:30 AM EDT Office Visit [facility], [place] [address] [place] [address] Olga Terrell MD Constipation, unspecified constipation type (Primary Dx) 10/12/2024 Telephone [facility], [address] [address] Olga Terrell MD from Last 3 Months Social History Tobacco Use Types Packs/Day Years Used Date Smoking Tobacco: Never Smokeless Tobacco: Never Tobacco Cessation:Counseling Given: Not Answered Comments No Sex and Gender Information Value Date Recorded Sex Assigned at Not on file Legal Sex Female 2:11 PM EST Gender Identity Not on file Sexual Orientation Not on file Last Filed Vital Signs Vital Sign Reading Time Taken Comments Blood Pressure 100/67 10/19/2024 11:43 AM EDT Pulse 81 10/19/2024 11:43 AM EDT Temperature - - Respiratory Rate - - Oxygen Saturation - - Inhaled Oxygen Concentration - - Weight 68.6 kg (151 lb 3.8 oz) 10/19/2024 11:43 AM EDT Height 151.2 cm (4' 11.53 ) 10/19/2024 11:43 AM EDT Body Mass Index 30.01 10/19/2024 11:43 AM EDT Plan of Treatment Health Maintenance Due Date Last Done Comments DTaP/TDAP/TD VACCINES (1 - Tdap) 2010 ADOLESCENT HIV SCREENING 2016 COVID-19 Vaccine (2023-2 5 season) 2024 INFLUENZA (#1) 2024 NIRSEVIMAB VACCINES UNDER 8 MONTHS Aged Out No longer eligible based on patient's age to complete this topic Insurance [facility] Care Teams Drill Grinder Relationship Specialty Start Date End Date Jennifer Weathers MD [address] [place] [address] PCP - General 08/15/19
--- OUTSIDE RECORDS SUMMARY | 2024-10-31 16:58 | XMS_ITS | Encounter Summary ---
Author Organization [facility] Address [address] [place] [address] Phone Care Team Providers Care Shoeblack Name Role Phone Jasiel Jennifer Primary Care Provider [phone] Encounter Details Date Type Department Care Team (Late st Contact Info) Description 05/28/2015 Conversion Encounter [facility] - [address] [address] Social History Tobacco Use Types Packs/Day Years [...] on filedocumented in this encounter Care Teams Shoeblack Relationship Specialty Start Date End Date Jennifer Weathers [address] [place] [address] PCP - General 11/23/17 documented as of this encounter
--- OUTSIDE RECORDS SUMMARY | 2024-10-31 16:58 | XMS_ITS | Encounter Summary ---
Author Organization [facility] Address [address] [place] [address] Phone Care Team Providers Care Temporary Staff Accountant Name Role Phone Jennifer Weathers MD Primary Care Provider [phone] Encounter Details Date Type Department Care Team (Late st Contact Info) Description 03/16/2024 Documentation Only [facility] [address] [place] [address] Derrek Salas MD [address] [place] [address] [place] [address] Social History Tobacco Use Types [...] on filedocumented in this encounter Care Teams Temporary Staff Accountant Relationship Specialty Start Date End Date Jennifer Weathers MD [address] [place] [address] PCP - General 05/22/19 documented as of this encounter
--- OUTSIDE RECORDS SUMMARY | 2024-10-31 16:58 | XMS_ITS | Clinical Summary ---
Author Organization [facility] [place], Address [address] [place] [address] [place] [address] Phone Care Team Providers Care Waste Collector Name Role Phone Jennifer Weathers MD Primary Care Provider [phone] Allergies Active Allergy Reactions Criticality Noted Date [...] kidney stone Dysfunction of urinary bladder Immunizations Immunization Administration Dates Next Due DTaP [...] Due Date Last Done Comments Influenza Vaccine (Season Ended) 2025 05/28/2015 Hepatitis B Vaccine Completed 03/05/2004, 2003, 2003 Pneumococcal Vaccine: 50+ Years Discontinued 09/04/2004, 09/04/2004, 2004, Additional history exists Pneumococcal Vaccine: Peds (0 to 5 Years) and At-Risk Patients (6 to 49 Years) Aged Out 09/04/2004, 09/04/2004, 2004, Additional history exists No longer eligible based on patient's age to complete this topic Insurance Medicaid [place] Care Teams Waste Collector Relationship Specialty Start Date End Date Jennifer Weathers MD [address] [place] [address] PCP - General 05/22/19
--- OUTSIDE RECORDS SUMMARY | 2024-10-31 16:58 | XMS_ITS | Encounter Summary ---
Author Organization [facility] Address [address] [place] [address] Care Team Providers Care Sinter Machine Operator Name Role Phone Community, Pcp Primary Care Provider Unavailabl e Encounter Details Date Type Department Care Team Description 08/21/2018 Refill Allergy - Feeding [place] [address] [place] [address] Shandra Vela MD Social History Tobacco Use Types Packs/Day Years Used Date Smoking Tobacco: Never Smokeless Tobacco: Never Comments:no one smokes aroun d her Alcohol Use Standard Drinks/Week Comments No 0 (1 standard drink = 0.6 oz pur e alcohol) Sex Assigned at Date Recorded Not on file documented as of this encounter Miscellaneous Notes * Telephone Encounter - Shandra Vela MD - 08/21/2018 12:47 PM EST Please see phone call from today. Rx sent on 08/01. Please see if issue with pharmacy * Telephone Encounter - Ginny Alegria M.A. - 08/21/2018 9:30 AM EST [place] 07/14/17 F/u apt 11/14/18 Last refill 08/01/18 documented in this encounter Plan of Treatment Not on file documented as of this encounter Visit Diagnoses Diagnosis Chronic allergic rhinitis Allergic rhinitis, cause unspecified documented in this encounter Care Teams Sinter Machine Operator Relationship Specialty Start Date End Date Community, Pcp PCP - General Internal Medicine 04/06/17 documented as of this encounter
--- OUTSIDE RECORDS SUMMARY | 2024-10-31 16:58 | XMS_ITS | Encounter Summary ---
Author Organization [facility] Address [address] [place] [address] Care Team Providers Care Draw Tender Name Role Phone Jennifer Weathers MD Primary Care Provider [phone] Reason for Visit * Reason Comments Medication Refill Encounter Details Date Type Department Care Team (Late st Contact Info) Description 03/28/2020 Refill [facility], [place] [address] [place] [address] Olga Terrell MD [address] [place] [phone] Poor appetite Social History Tobacco Use Types [...] Anorexia documented in this encounter Care Teams Draw Tender Relationship Specialty Start Date End Date Jennifer Weathers MD [address] [place] [address] PCP - General 08/15/19 documented as of this encounter
--- OUTSIDE RECORDS SUMMARY | 2024-10-31 16:58 | XMS_ITS | Encounter Summary ---
Author Organization [facility] Address [address] [place] [address] Care Team Providers Care Weapons Specialist Name Role Phone Jennifer Weathers MD Primary Care Provider [phone] Reason for Visit * Reason Comments Medication Refill Encounter Details Date Type Department Care Team ([facility] st Contact Info) Description 03/08/2023 Refill [facility], [address] [phone] Olga Terrell MD [address] [place] [address] Gastro-esophageal reflux disease without esophagitis Social History [...] esophagitis documented in this encounter Care Teams Weapons Specialist Relationship Specialty Start Date End Date Jennifer Weathers MD [address] [place] [address] PCP - General 08/15/19 documented as of this encounter
--- OUTSIDE RECORDS SUMMARY | 2024-10-31 16:58 | XMS_ITS | Encounter Summary ---
Author Organization [address] [address] Care Team Providers Care Painting Machine Operator Name Role Phone Jennifer Weathers MD Primary Care Provider [phone] Reason for Visit * Reason Comments Medication Refill Encounter Details Date Type Department Care Team (Late st Contact Info) Description 10/13/2020 Refill [facility], [place] [address] [place] [address] Olga Terrell MD [address] [place] [address] Gastro-esophageal reflux disease without esophagitis Social History [...] esophagitis documented in this encounter Care Teams Painting Machine Operator Relationship Specialty Start Date End Date Jennifer Weathers MD [address] [place] [address] PCP - General 08/15/19 documented as of this encounter
--- OUTSIDE RECORDS SUMMARY | 2024-10-31 16:58 | XMS_ITS | Encounter Summary ---
Author Organization [facility] Address [address] [place] [address] Care Team Providers Care Ergonomics Consultant Name Role Phone Community, Pcp Primary Care Provider Unavailabl e Reason for Visit * Reason Onset Date Comments Medication 07/20/2017 Encounter Details Date Type Department Care Team Description 07/19/2017 Telephone Allergy - [address] [address] Shandra Vela MD Medication Social History Tobacco Use Types Packs/Day Years Used Date Smoking Tobacco: Never Smokeless Tobacco: Never Comments:no one smokes aroun d her Alcohol Use Standard Drinks/Week Comments No 0 (1 standard drink = 0.6 oz pur e alcohol) Sex Assigned at Date Recorded Not on file documented as of this encounter Miscellaneous Notes * Telephone Encounter - Alisa Osorio R.N. - 07/20/2017 10:14 AM EST Call to [facility] to inquire if Script for Epi Pen received as pt mother reported patient has not received as yet and cannot begin allergy injections until epi pen available. Per director of pharmacy epipen was not in stock. They expect to have available for patient today. * Telephone Encounter - Alisa Osorio R.N. - 07/19/2017 5:16 PM EST Call to patient to notify that allergens prepared and may begin allergy injections. Mother answeredtelephone stating pt is ready to begin just waiting for epipen at pharmacy. documented in this encounter Plan of Treatment Not on file documented as of this encounter Visit Diagnoses Not on filedocumented in this encounter Care Teams Ergonomics Consultant Relationship Specialty Start Date End Date Community, Pcp PCP - General Internal Medicine 04/06/17 documented as of this encounter
--- OUTSIDE RECORDS SUMMARY | 2024-10-31 16:58 | XMS_ITS | Encounter Summary ---
Author Organization [facility] Address [address] [place] [address] Care Team Providers Care Principal Scientist Name Role Phone Jennifer Weathers MD Primary Care Provider [phone] Encounter Details Date Type Department Care Team (Late st Contact Info) Description 10/12/2024 Telephone [facility] Gastro[facility] [phone] Olga Terrell MD [address] [place] [address] Social History Tobacco Use Types Packs/Day Years Used Date Smoking Tobacco: Never Smokeless Tobacco: Never Comments No Sex and Gender Information Value Date Recorded Sex Assigned at Not on file Legal Sex Female 2:11 PM EST Gender Identity Not on file Sexual Orientation Not on file documented as of this encounter Miscellaneous Notes * Telephone Encounter - Kezia Pérez RN - 10/12/2024 3:22 PM EDT Returned call to pt to review. Dr. Terrell's recommendations to do clean out with 16 caps of Miralax in 64oz Gatorade. + 2 tabs of Dulcolax If having increased pain/discomfort will need to be seen in Emergency Department for evaluation. Pt states she will attempt clean out.but will go to Emergency Department if unsuccessful. * Telephone Encounter - Olga Terrell MD - 10/12/2024 2:07 PM EDT Thanks Kezia, Please tell her to start bowel cleanout with miralax - 16 caps in 64 oz gatorade. Also take 2 tabs of dulcolax prior to starting miralax. If she is in pain/discomfort - go to ER * Telephone Encounter - Kezia Pérez RN - 10/12/2024 12:53 PM EDT Returned call to pt who reports she has follow up with Dr. Terrell next week. Pt reports she started having constipation last week. Last bowel movement was 10/04 Current medication regimen Linzess 145mcg nightly Miralax prn (recently started 1 cap per day) which has not been effective. Pt reports prior to last week she had been having hard/formed every 3-4 days with straining. Blood noted with straining. Pt with complaints of nausea and abdominal pain Episodes of emesis 3 days ago. Pt reports feeling hard and distended . Decreased appetite Tolerating fluids Voiding wnl Pt reports she is willing to try at home clean out and rectal therapy or go to Emergency Departmentif necessary. Will speak with Dr. Terrell and follow up with advise. Pt verbalized understanding of all instructions and comfortable with plan. * Telephone Encounter - Mari Urbina - 10/12/2024 11:27 AM EDT Provider: Name of Caller: Paola Woody call back number: [phone] Reason for call: pt called in says that she hasn't had a stool for about a week. She says shes in alot of pain and has an upcoming appt and wants to know what can she do in the mean time. Pt would like a call back. Next Appt: 10/19/24 documented in this encounter Plan of Treatment Not on file documented as of this encounter Visit Diagnoses Diagnosis Constipation, unspecified constipation type- Primary documented in this encounter Care Teams Principal Scientist Relationship Specialty Start Date End Date Jennifer Weathers MD [address] [place] [address] PCP - General 08/15/19 documented as of this encounter
--- OUTSIDE RECORDS SUMMARY | 2024-10-31 16:58 | XMS_ITS | Encounter Summary ---
Author Organization [facility] Address [address] [place] [address] Care Team Providers Care Brazer Controlled Atmospheric Furnace Name Role Phone Community, Pcp Primary Care Provider Unavailabl e Encounter Details Date Type Department Care Team Description 05/03/2017 Release of Information Medical Records [address] [place] [id number] Abstract, Provider Social History Tobacco Use Types Packs/Day Years Used Date Smoking Tobacco: Never Comments:no one smokes aroun d her Alcohol Use Standard Drinks/Week Comments No 0 (1 standard drink = 0.6 oz pur e alcohol) Sex Assigned at Date Recorded Not on file documented as of this encounter Plan of Treatment Not on file documented as of this encounter Visit Diagnoses Not on filedocumented in this encounter Care Teams Brazer Controlled Atmospheric Furnace Relationship Specialty Start Date End Date Community, Pcp PCP - General Internal Medicine 04/06/17 documented as of this encounter
--- OUTSIDE RECORDS SUMMARY | 2024-10-31 16:58 | XMS_ITS | Encounter Summary ---
Author Organization [address] [address] Care Team Providers Care Pulmonologist Intensivist Name Role Phone Jennifer Weathers MD Primary Care Provider [phone] Reason for Visit * Reason Comments Medication Refill Encounter Details Date Type Department Care Team (Late st Contact Info) Description 07/21/2022 Refill [facility], [place] [address] [place] [address] Olga Terrell MD [address] [place] [address] Constipation, unspecified constipation type; Constipation, unspecified Social [...] type documented in this encounter Care Teams Pulmonologist Intensivist Relationship Specialty Start Date End Date Jennifer Weathers MD [address] [place] [address] PCP - General 08/15/19 documented as of this encounter
--- OUTSIDE RECORDS SUMMARY | 2024-10-31 16:58 | XMS_ITS | Clinical Summary ---
Author Organization [facility] Address [address] [place] [address] Phone Care Team Providers Care Chargeback Specialist Name Role Phone Jennifer Weathers Primary Care Provider [phone] Immunizations Immunization Administration Dates Next Due DTaP [...] age to complete this topic Care Teams Chargeback Specialist Relationship Specialty Start Date End Date Jennifer Weathers [address] [place] [address] PCP - General 11/23/17
--- OUTSIDE RECORDS SUMMARY | 2024-10-31 16:58 | XMS_ITS | Encounter Summary ---
Author Organization [facility] Address [address] [place] [address] Care Team Providers Care Blocker And Polisher Name Role Phone Jennifer Weathers MD Primary Care Provider [phone] Reason for Visit * Reason Comments Medication Refill Encounter Details Date Type Department Care Team ([facility] st Contact Info) Description 04/02/2020 Refill [facility] Gastroenterology, [address] [phone] Olga Terrell MD [address] [place] [phone] Gastro-esophageal reflux disease without esophagitis Social History [...] esophagitis documented in this encounter Care Teams Blocker And Polisher Relationship Specialty Start Date End Date Jennifer Weathers MD [address] [place] [address] PCP - General 08/15/19 documented as of this encounter
--- OUTSIDE RECORDS SUMMARY | 2024-10-31 16:58 | XMS_ITS | Encounter Summary ---
Author Organization [facility] Address [address] [place] [address] Care Team Providers Care Scrap Cutter Name Role Phone Jennifer Weathers MD Primary Care Provider [phone] Reason for Visit * Reason Comments Medication Refill Encounter Details Date Type Department Care Team ([facility] st Contact Info) Description 02/25/2022 Refill [facility] Gastroenterology, [address] [phone] Olga Terrell MD [address] [place] [phone] Gastro-esophageal reflux disease without esophagitis; Constipation, unspecified [...] unspecified documented in this encounter Care Teams Scrap Cutter Relationship Specialty Start Date End Date Jennifer Weathers MD [address] [place] [address] PCP - General 08/15/19 documented as of this encounter
--- OUTSIDE RECORDS SUMMARY | 2024-10-31 16:58 | XMS_ITS | Encounter Summary ---
Author Organization [facility] Address [address] [place] [address] Care Team Providers Care Electrical Design Technician Name Role Phone Jennifer Weathers MD Primary Care Provider [phone] Reason for Visit * Reason Comments Medication Refill Encounter Details Date Type Department Care Team ([facility] st Contact Info) Description 06/21/2022 Refill [facility] Gastroenterology, [address] [phone] Olga Terrell MD [address] [place] [phone] Gastro-esophageal reflux disease without esophagitis Social History [...] esophagitis documented in this encounter Care Teams Electrical Design Technician Relationship Specialty Start Date End Date Jennifer Weathers MD [address] [place] [address] PCP - General 08/15/19 documented as of this encounter
--- OUTSIDE RECORDS SUMMARY | 2024-10-31 16:58 | XMS_ITS | Encounter Summary ---
Author Organization [facility] Address [address] [place] [address] Care Team Providers Care Teacher Learning Disabled Name Role Phone Community, Pcp Primary Care Provider Unavailabl e Reason for Visit * Reason Onset Date Comments Appointment Cancelled 01/10/2018 Encounter Details Date Type Department Care Team Description 01/10/2018 Telephone Allergy - Feeding [address] [phone] Shandra Vela MD Appointment Cancelled Social History Tobacco Use Types Packs/Day Years Used Date Smoking Tobacco: Never Smokeless Tobacco: Never Comments:no one smokes aroun d her Alcohol Use Standard Drinks/Week Comments No 0 (1 standard drink = 0.6 oz pur e alcohol) Sex Assigned at Date Recorded Not on file documented as of this encounter Miscellaneous Notes * Telephone Encounter - Lynn Moreira - 01/10/2018 3:07 PM EDT Mother called and cancelled follow up Appt For 01/12/18 due pt hospitalized for mental health issues. documented in this encounter Plan of Treatment Not on file documented as of this encounter Visit Diagnoses Not on filedocumented in this encounter Care Teams Teacher Learning Disabled Relationship Specialty Start Date End Date Community, Pcp PCP - General Internal Medicine 04/06/17 documented as of this encounter
== END 2024-10-31 14:56 | disposition home or self-care (01) ==
LOC: HO.HUSH 14:14
PROVIDERS: PCP Pediatrics; Visit Provider Urology
DX: N20.0 Calculus of kidney (principal); R39.81 Functional urinary incontinence; Z13.9 Encounter for screening, unspecified
CPT/HCPCS: 99213; G2211

== ENCOUNTER → 2024-10-31 14:13 | Outpatient (BNVA) | payer OTHER, SELFPAY | PROVIDERS: PCP Pediatrics; Visit Provider Urology | DX: N20.0 Calculus of kidney (principal); R39.81 Functional urinary incontinence | CPT/HCPCS: 81003; 99212 ==

== ENCOUNTER 2025-01-30 16:48 | Outpatient (AMB) | payer OTHER, SELFPAY ==
--- NOTE | 2025-01-30 16:51 | MHC.OFVISPED ---
Pediatric Intake Visit Reasons: TH-scracthy throat/stomach discom. #[phone] Pressfitter Required: No Accompanied by: Mother Allergies cat dander Allergy (Mild, Verified 01/30/25 16:52) Watery Eye feathers Allergy (Mild, Verified 01/30/25 16:52) Watery Eye mold Allergy (Mild, Verified 01/30/25 16:52) Watery Eye acetaminophen Allergy (Unknown, Verified 01/30/25 16:52) Hives tree and shrub pollen Allergy (Unknown, Verified 01/30/25 16:52) Watery Eye cockroach Allergy (Mild, Uncoded 01/30/25 16:52) Watery Eye dust mites Allergy (Mild, Uncoded 01/30/25 16:52) Watery Eye Mouse Allergy (Mild, Uncoded 01/30/25 16:52) Itchy Eyes environmental Allergy (Unknown, Uncoded 01/30/25 16:52) Watery Eye lemon, [place], citrus Allergy (Unknown, Uncoded 01/30/25 16:52) rash red apples, peaches Allergy (Unknown, Uncoded 01/30/25 16:52) hives Medication List - Last Reconciled 01/30/25 by Jennifer Weathers MD clobazam (Onfi) 10 mg orally take 2 tablets every morning and 3 tablets every evening; clonazepam 2 mg PO ONCE PRN diazepam (Valtoco) 15 mg intranasal Q4H epinephrine 0.3 mg (0.3 mL) IM Q15M PRN famotidine 20 mg PO BID fexofenadine (Allergy Relief (fexofenadine)) 180 mg PO DAILY fluticasone propionate 50 mcg/actuation (Flonase Allergy Relief) 1 spray intranasal DAILY hydroxyzine HCl 25 mg PO BEDTIME hydroxyzine HCl 10 mg orally take 1 tablet every morning and as needed; ibuprofen 400 mg PO Q6H PRN ketotifen fumarate 0.025%(0.035%) (Alaway) 1 drp ophthalmic (eye) BID lamotrigine 200 mg PO BID lamotrigine 100 mg PO DAILY linaclotide (Linzess) 72 mcg PO DAILY magnesium gluconate (Mag-G) 27 mg PO DAILY medroxyprogesterone (Depo-Provera) 150 mg IM [id number] miscellaneous medical supply pull-ups as directed; size adult small (weight = 55.7 kg). NPI#[id number] naproxen 500 mg orally at onset prn; ofloxacin 0.3% 10 drps otic (ear) left DAILY 7 days ondansetron 8 mg sublingual every 4 hrs prn; oseltamivir (Tamiflu) 75 mg PO BID 5 days PNV,calcium [id number] acid 27 mg iron- 1 mg (M- Plus) 1 tab PO DAILY pyridoxine (vitamin B6) 100 mg PO BID riboflavin (vitamin B2) 100 mg PO BID risperidone 1 mg PO BEDTIME risperidone 0.5 mg PO BID rizatriptan 10 mg orally prn onset + 2 hrs; sertraline 25 mg PO DAILY sertraline 100 mg PO DAILY terazosin 1 mg PO BEDTIME 90 days trazodone 50 mg PO .at bedtime [wheelchair As directed] zonisamide 50 mg orally take 4 capsules every evening; HPI HPI TH-scracthy throat/stomach discom. #[phone]: Details: nausea x 4 d. also diarrhea x 5 d. no fever or abd pain. appetite is decreased - has been for about a week. ate steak and potatoes yesterday. today had oatmeal, rice crispies and crackers. drinking water. no cough. throat is scratchy- she has PND which she is attributing to seasonal allergies. LMP 1 week ago. not on any control. has not been sexually active since May. no recent med changes. [facility] Medical History Frequent UTI Kidney stones Schizoaffective disorder Autism Anxiety OCD (obsessive compulsive disorder) Intellectual disability Migraines Chiari malformation type I Central auditory processing disorder Bladder incontinence Cerebral palsy Seizure disorder Surgical History No pertinent past surgical history Family History Mother Substance abuse Depression Anxiety Alcohol abuse Cancer Kidney disease Seizures Asthma ADHD Father Kidney disease ADHD Social History Household Members: Spouse and Other Household Members Other:: w/spouse in [place] w/e's & vacations o/w in [place] w/ mom & sibs/foster sib Alcohol intake: never Patient Tobacco Use Status: Never used Tobacco Cognitive needs: No Hearing needs: No Vision needs: No Review of Systems Const Reports as per HPI ENT Reports as per HPI Resp Reports as per HPI GI Reports as per HPI Pediatric Exam Const Constitutional General: healthy appearing and no acute distress Resp Effort & Inspection: normal respiratory effort Telehealth Telehealth Telehealth Platform: Telephone Location of provider rendering services: practice address Location of patient: address on file Patient Identification confirmed using: Name, : Yes Telehealth method: video Patient verbally consented to treatment: Yes Patient verbally consented to billing insurance company: Yes Patient informed of any privacy concerns related to visit: Yes Minutes spent on Phone/Video with Pt.: 10 Assessment & Plan Assessment & Plan (1) Nausea: Code(s): R11.0 - Nausea Plan: discussed with pt that current sxs most likely attributable to VGE. continue with bland diet and advance as tolerated. increase fluid intake. consider lactose free diet if sxs do not improve in next few days. also advised f/u in office next week if sxs are persistant - will need exam and further eval including labs. Coding Level of Care Code Tele Est Pt Level 3 (15885) Diagnoses Nausea R11.0
== END 2025-01-30 18:11 | disposition home or self-care (01) ==
LOC: HO.HMCP 16:49
PROVIDERS: PCP Pediatrics; Visit Provider Pediatrics
DX: R11.0 Nausea (principal)

== ENCOUNTER 2025-03-29 08:46 | Outpatient (AMB) | payer OTHER, SELFPAY ==
--- NOTE | 2025-03-29 08:54 | A.OFFVISP_ITS ---
Vital Signs 03/29/25 08:55 Height 4 ft 11.25 in Height percentile 3 Weight 150 lb 8 oz Weight percentile 90 BMI 30.1 BMI percentile 95 Temp 97.6 F Temp Source Oral Pulse 58 Pulse Source Pulse Oximeter BP 108/70 Pulse Oximetry (%) 99 Pediatric Intake Visit Reasons: [facility] 19 year female/wrist pain Tour Bus Driver/Guide Required: No Accompanied by: Mother Allergies cat dander Allergy (Mild, Verified 01/30/25 16:52) Watery Eye feathers Allergy (Mild, Verified 01/30/25 16:52) Watery Eye mold Allergy (Mild, Verified 01/30/25 16:52) Watery Eye acetaminophen Allergy (Unknown, Verified 01/30/25 16:52) Hives tree and shrub pollen Allergy (Unknown, Verified 01/30/25 16:52) Watery Eye cockroach Allergy (Mild, Uncoded 01/30/25 16:52) Watery Eye dust mites Allergy (Mild, Uncoded 01/30/25 16:52) Watery Eye Mouse Allergy (Mild, Uncoded 01/30/25 16:52) Itchy Eyes environmental Allergy (Unknown, Uncoded 01/30/25 16:52) Watery Eye lemon, [place], citrus Allergy (Unknown, Uncoded 01/30/25 16:52) rash red apples, peaches Allergy (Unknown, Uncoded 01/30/25 16:52) hives Medication List - Last Reconciled 03/29/25 by Jennifer Weathers MD aripiprazole 2 mg PO DAILY clobazam (Onfi) 10 mg orally take 2 tablets every morning and 3 tablets every evening; clonazepam 2 mg PO ONCE PRN diazepam (Valtoco) 15 mg intranasal Q4H epinephrine 0.3 mg (0.3 mL) IM Q15M PRN famotidine 20 mg PO BID fexofenadine (Allergy Relief (fexofenadine)) 180 mg PO DAILY fluticasone propionate 50 mcg/actuation (Flonase Allergy Relief) 1 spray intranasal DAILY hydroxyzine HCl 25 mg PO BEDTIME hydroxyzine HCl 10 mg orally take 1 tablet every morning and as needed; ibuprofen 400 mg PO Q6H PRN ketotifen fumarate 0.025%(0.035%) (Alaway) 1 drp ophthalmic (eye) BID lamotrigine 200 mg PO BID lamotrigine 100 mg PO DAILY linaclotide (Linzess) 72 mcg PO DAILY magnesium gluconate (Mag-G) 27 mg PO DAILY miscellaneous medical supply pull-ups as directed; size adult small (weight = 55.7 kg). NPI#[id number] naproxen 500 mg orally at onset prn; ondansetron 8 mg sublingual every 4 hrs prn; pyridoxine (vitamin B6) 100 mg PO BID riboflavin (vitamin B2) 100 mg PO BID risperidone 1 mg PO BEDTIME risperidone 0.5 mg PO BID rizatriptan 10 mg orally prn onset + 2 hrs; sertraline 25 mg PO DAILY sertraline 100 mg PO DAILY terazosin 1 mg PO BEDTIME 90 days trazodone 50 mg PO .at bedtime [wheelchair As directed] zonisamide 300 mg PO ONCE Dental Screening Dental Screen Date: 03/29/25 Did your child have a dental visit in the last 12 months for preventative care, such as check-ups/dental cleaning?: Yes Was there a time your child needed dental care in the last 12 months, but was not received?: No Was dental information given to patient?: Patient has dentist [facility] 18-21 Year Female concerns: 1) right wrist pain - also numbness and tingling. x 1 month. increased sxs with doing art. 2) fell 1 month ago and injured both hands. right side 2 fingers still look abnormal and are painful intermittently 3) wants IUD - has [facility] appt in june 4) ear pain - right ear - saw fluid. has been using abx drops for several and pain is now improved 5) saw foot and ankle swelling - better with compression socks. had labs done at [facility] that were normal transitioning to adult providers - will see neuro at [facility] for seizures has updated orthotics now/still working on getting wheelchair - has been a process psych at [facility] is child and adult so she will stay with same psychiatrist. sees urology Nutrition overall balanced Exercise Sports and activities: Reports watches <2 hours of screen time daily Genitourinary Bowel movements: abnormal (constipation. sees GI) Dental Dental care: Reports receives dental care Behavioral mood is ok. sees psych at [facility] for meds and adjustment counselor at school. Educational/Employment not in school anymore. she attends day program at [employer]. funded by [place] [employer] until she turns 20 then will be through [employer]. 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 Work: part-time Living situation: lives at home (downstairs apartment in [place]) Sexual has fiance. sexual history: currently sexually active (using condoms and wants IUD) Sleep does not sleep well. trouble falling asleep and has frequent waking also. has meds Safety Car safety: well child 16-17 years: seat belt Home Safety: Has poison control number, Water heater temp <120, Working smoke detector in home, Working carbon monoxide detector in home and Fire Extinguisher in home [facility] Substance Abuse Tobacco History Patient Tobacco Use Status: Never used Tobacco Alcohol History Alcohol intake: never Substance Use History Use of substances other than those prescribed or required for medical reasons: No PFSH Medical History Frequent UTI Kidney stones Schizoaffective disorder Autism Anxiety OCD (obsessive compulsive disorder) Intellectual disability Migraines Chiari malformation type I Central auditory processing disorder Bladder incontinence Cerebral palsy Seizure disorder Surgical History No pertinent past surgical history Family History Mother Substance abuse Depression Anxiety Alcohol abuse Cancer Kidney disease Seizures Asthma ADHD Father Kidney disease ADHD Social History Household Members: Spouse and Other Household Members Other:: w/spouse in [place] w/e's & vacations o/w in [facility] w/ mom & sibs/foster sib Alcohol intake: never Patient Tobacco Use Status: Never used Tobacco Cognitive needs: No Hearing needs: No Vision needs: No CRAFFT Screening Tool PART A: In the PAST 12 MONTHS, did you: Drink any alcohol (more than few sips)? (Do not count sips of alcohol taken during family or mandaeism events.): No Smoke any marijuana or hashish?: No Use anything else to get high? (includes illegal drugs, over the counter/prescription drugs, or things that you sniff/rios?): No PART B: If answered YES to ANY above: Have you ever been in a CAR driven by someone (including yourself) who was high or had been using alcohol or drugs?: No CRAFFT Assessment Charge Crafft: EDWINAT [address] PHQ-9 Over the last 2 weeks, how often have you been bothered by any of the following problems? Depression Screening Interpretation: Negative Depression Screening Done: Yes Source: Developed by Drs. Christiano Boyle, Pamela Moreira, Rich Mendez and colleagues, with an educational avinash from [employer]. Assessment & Plan Assessment & Plan (1) Well adult on routine health check: Code(s): Z00.00 - Encounter for general adult medical examination without abnormal findings Plan: Discussed age-appropriate AG including peer relationships/peer pressure, family relationships, abstinence/safe sex, healthy relationships/sexuality, internet safety, drug/alcohol/cigarette/vaping/marijuana avoidance, sleep, healthy diet, importance of daily physical activity, mood, stress management, conflict management, driving safety, seatbelt use, dental health, future plans, gun safety, (2) Pain of right hand: Code(s): M79.641 - Pain in right hand Plan: xrays today (3) Right wrist pain: Code(s): M25.531 - Pain in right wrist Plan: suspect carpal tunnel. refer hand surgeon. continue with wrist brace (4) Migraines: Code(s): G43.909 - Migraine, unspecified, not intractable, without status migrainosus Category: Medical Plan: continue with neuro (5) Cerebral palsy: Code(s): G80.9 - Cerebral palsy, unspecified Category: Medical Plan: discussed location for wheelchair (6) Seizure disorder: Code(s): G40.909 - Epilepsy, unspecified, not intractable, without status epilepticus Category: Medical Plan: f/u with neuro (7) Autism: Comment: level 1 Code(s): F84.0 - Autistic disorder Category: Medical (8) OCD (obsessive compulsive disorder): Code(s): F42.9 - Obsessive-compulsive disorder, unspecified Category: Medical (9) Anxiety: Code(s): F41.9 - Anxiety disorder, unspecified Category: Medical Plan f/u with psych Orders: Orders XR wrist RT w scaphoid Today M25.531 - Pain in right wrist, M79.641 - Pain in right hand XR hand RT min 3V Today M25.531 - Pain in right wrist, M79.641 - Pain in right hand Referrals Hand Surgery Referral M25.531 - Pain in right wrist, M79.641 - Pain in right hand Medications: Changed From ofloxacin 0.3% 10 drps otic (ear) left DAILY 7 days 5 mL 0RF To ofloxacin 0.3% 10 drps otic (ears) DAILY 5 mL 0RF 7 days Coding Level of Care Code Est Pt Prev Care 18-39y(62229) Diagnoses Well adult on routine health check Z00.00 Pain of right hand M79.641 Right wrist pain M25.531 Migraines G43.909 Cerebral palsy G80.9 Seizure disorder G40.909 Autism F84.0 OCD (obsessive compulsive disorder) F42.9 Anxiety F41.9 Additional Codes CRAFFT Assessment Charge - Crafft: CRAFFT 68341 ([id number]) MERE-7 Assessment Billing - MERE-7 Assessment Tool: MERE-7 Assessment 38916 ([id number]) PHQ Assessment Billing - PHQ Assessment Tool: PHQ Assessment 44326 ([id number]) Thrive Questionnaire Date Thrive assessed: 03/29/25 I am a: Patient What is your living situation today?: I have a steady place to live Within the past 12 months, did the food you bought not last and you didn't have the money to get more?: Never true Within the past 12 months, did you worry whether your food would run out before you got money to buy more?: Never true Do you have trouble paying for medicines?: No Do you have trouble getting transportation to medical appointments?: Yes Do you have trouble paying your heating and electricity bill?: No Do you have trouble taking care of your child, family member or friend?: No Do you have trouble with day-to-day activities such as bathing, preparing meals, shopping, managing finances, etc.?: Yes Are you currently unemployed and looking for a job?: No Are you interested in more education?: No Please select the resources that you would like help with: None THRIVE Score: 1 MERE-7 AMB Questionnaire MERE-7 Date MERE - 7 assessed: 03/28/24 Feeling nervous, anxious, or on edge: 2 = More than half the days Not being able to stop or control worryin = Several days Worrying too much about different things: 1 = Several days Trouble relaxin = More than half the days Being so restless that it is hard to sit still: 0 = Not at all Becoming easily annoyed or irritable: 1 = Several days Feeling afraid as if something awful might happen: 2 = More than half the days Total MERE-7 score (0-4 normal; 5-9 mild; 10-14 moderate; 15-21 severe): 9 Source: Developed by Drs. Christiano Boyle, Pamela Moreira, Rich Mendez and colleagues, with an educational avinash from [employer]. MERE-7 Assessment Billing MERE-7 Assessment Tool: MERE-7 Assessment 32173 PHQ-9: Modified for Teens Feeling down, depressed, irritable or hopeless?: Several Days Little interest or pleasure in doing things?: Not at all Trouble falling asleep, staying asleep, or sleeping too much?: More than half the days Poor appetite, weight loss or overeating?: Several Days Feeling tired, or having little energy?: More than half the days Feeling bad about yourself-or feeling that you are a failure, or that you let yourself/your family down?: Several Days Trouble concentrating on things like school work, reading, or watching TV?: Several Days Moving/speaking so slowly that other people have noticed? Or the opposite-being so fidgety that you were moving more than usual?: Not at all Thoughts that you would be better off , or of hurting yourself in some way?: Not at all In the past year have you felt depressed or sad most days, even if you felt okay sometimes?: Yes How difficult have these problems made it for you to do your work, take care of things at home, or get along with other?: Somewhat difficult Has there been a time in the past month when you have had serious thoughts about ending your life?: No Have you ever, in your entire life, tried to kill yourself or made a suicide attempt?: No Score: 8 Depression Screening Interpretation: Negative Depression Screening Done: Yes PHQ Assessment Billing PHQ Assessment Tool: PHQ Assessment 45217
[2025-03-29 08:55] VITALS: BP 108/70; PULSE 58; TEMP 36.4; O2SAT 99; BMI 30.1
--- OUTSIDE RECORDS SUMMARY | 2025-03-29 09:26 | XMS_ITS | Clinical Summary ---
Author Organization [facility], Address [address] [place] [address] [place] [id number] Phone Care Team Providers Care Baling Machine Operator Name Role Phone Jennifer Weathers MD Primary Care Provider [phone] Allergies Active Allergy Reactions Criticality Noted Date [...] Date Last Done Comments Influenza Vaccine (#1) 2025 05/28/2015 Hepatitis B Vaccine Completed 03/05/2004, 2003, 2003 Pneumococcal Vaccine: 50+ Years Discontinued 09/04/2004, 09/04/2004, 2004, Additional history exists Pneumococcal Vaccine: Peds (0 to 5 Years) and At-Risk Patients (6 to 49 Years) Aged Out 09/04/2004, 09/04/2004, 2004, Additional history exists No longer eligible based on patient's age to complete this topic Insurance Medicaid [place] Care Teams Baling Machine Operator Relationship Specialty Start Date End Date Jennifer Weathers MD [address] [place] [address] PCP - General 05/22/19
--- OUTSIDE RECORDS SUMMARY | 2025-03-29 09:26 | XMS_ITS | Encounter Summary ---
Author Organization [facility] Address [address] [place] [address] Care Team Providers Care Director Of Sleep Name Role Phone Jennifer Weathers MD Primary Care Provider [phone] Reason for Visit * Reason Comments Medication Refill Encounter Details Date Type Department Care Team ([facility] st Contact Info) Description 11/28/2019 Refill [facility] Gastroenterology, [address] [phone] Olag Terrell MD [address] [place] [phone] Constipation, unspecified constipation type Social History Tobacco [...] stated she was not on the dulcolax Expressive Music Therapist called mom and she stated they are NOT on Dulcolax. Refuse med please * Telephone Encounter - Joaquina Jessica RN - 11/28/2019 9:25 AM EDT Per chart not taking? documented in this encounter Plan of Treatment Not on file documented as of this encounter Visit Diagnoses Diagnosis Constipation, unspecified constipation type documented in this encounter Care Teams Director Of Sleep Relationship Specialty Start Date End Date Jennifer Weathers MD [address] [place] [address] PCP - General 08/15/19 documented as of this encounter
--- OUTSIDE RECORDS SUMMARY | 2025-03-29 09:26 | XMS_ITS | Encounter Summary ---
Author Organization [facility] Address [address] [place] [address] Care Team Providers Care Dehydrogenation Supervisor Name Role Phone Jennifer Weathers MD Primary Care Provider [phone] Reason for Visit * Reason Comments Medication Refill Encounter Details Date Type Department Care Team ([facility] st Contact Info) Description 01/01/2020 Refill [facility] Gastroenterology, [address] [phone] Olga Terrell MD [address] [place] [address] [phone] Gastroesophageal reflux disease, esophagitis presence not specified [...] a follow up appt. Will send to [facility] to book Weight: 54.7 kg Allergies: reviewed [...] specified documented in this encounter Care Teams Dehydrogenation Supervisor Relationship Specialty Start Date End Date Jennifer Weathers MD [address] [place] [address] PCP - General 08/15/19 documented as of this encounter
--- OUTSIDE RECORDS SUMMARY | 2025-03-29 09:26 | XMS_ITS | Encounter Summary ---
Author Organization [facility] Address [address] [place] [address] Phone Care Team Providers Care Clothing Sorter Name Role Phone Jennifer Weathers MD Primary Care Provider [phone] Encounter Details Date Type Department Care Team (Late st Contact Info) Description 03/16/2024 Documentation Only [facility] [address] [place] [address] Derrek Salas MD [address] [place] [address] [place] [address] Social History Tobacco Use Types [...] on filedocumented in this encounter Care Teams Clothing Sorter Relationship Specialty Start Date End Date Jennifer Weathers MD [address] [place] [address] PCP - General 05/22/19 documented as of this encounter
--- OUTSIDE RECORDS SUMMARY | 2025-03-29 09:26 | XMS_ITS | Encounter Summary ---
Author Organization [facility] Address [address] [place] [address] Care Team Providers Care Gem Technician Name Role Phone Jennifer Weathers MD Primary Care Provider [phone] Reason for Visit * Reason Comments Medication Refill Encounter Details Date Type Department Care Team (Late st Contact Info) Description 12/03/2019 Refill [facility] Gastroenterology, [place] [address] [place] [address] Olga Terrell MD [address] [place] [address] Constipation, unspecified constipation type Social History Tobacco [...] type documented in this encounter Care Teams Gem Technician Relationship Specialty Start Date End Date Jennifer Weathers MD [address] [place] [address] PCP - General 08/15/19 documented as of this encounter
--- OUTSIDE RECORDS SUMMARY | 2025-03-29 09:26 | XMS_ITS | Encounter Summary ---
Author Organization [facility] Address [address] [place] [address] Phone Care Team Providers Care Medical Sonographer Name Role Phone Jasiel Jennifer Primary Care Provider [phone] Encounter Details Date Type Department Care Team (Late st Contact Info) Description 05/28/2015 Conversion Encounter [facility] - [address] [address] Social History Tobacco Use Types Packs/Day Years [...] on filedocumented in this encounter Care Teams Medical Sonographer Relationship Specialty Start Date End Date Jnenifer Weathers [address] [place] [address] PCP - General 11/23/17 documented as of this encounter
--- OUTSIDE RECORDS SUMMARY | 2025-03-29 09:27 | XMS_ITS | Encounter Summary ---
Author Organization [facility] Address [address] [place] [address] Care Team Providers Care Associate Software Development Engineer Name Role Phone Jennifer Weathers MD Primary Care Provider [phone] Reason for Visit * Reason Comments Medication Refill Encounter Details Date Type Department Care Team ([facility] st Contact Info) Description 11/02/2021 Refill [facility] Gastroenterology, [address] [phone] Olga Terrell MD [address] [place] [address] [phone] Constipation, unspecified; Gastro-esophageal reflux disease without esophagitis [...] esophagitis documented in this encounter Care Teams Associate Software Development Engineer Relationship Specialty Start Date End Date Jennifer Weathers MD [address] [place] [address] PCP - General 08/15/19 documented as of this encounter
--- OUTSIDE RECORDS SUMMARY | 2025-03-29 09:27 | XMS_ITS | Encounter Summary ---
Author Organization [facility] Address [address] [place] [address] Care Team Providers Care Asset Protection Greeter Name Role Phone Jennifer Weathers MD Primary Care Provider [phone] Reason for Visit * Reason Comments Medication Refill Encounter Details Date Type Department Care Team ([facility] st Contact Info) Description 05/28/2020 Refill [facility] Gastroenterology, [address] [phone] Olga Terrell MD [address] [place] [address] Constipation, unspecified Social History Tobacco Use Types [...] unspecified documented in this encounter Care Teams Asset Protection Greeter Relationship Specialty Start Date End Date Jennifer Weathers MD [address] [place] [address] PCP - General 08/15/19 documented as of this encounter
--- OUTSIDE RECORDS SUMMARY | 2025-03-29 09:27 | XMS_ITS | Encounter Summary ---
Author Organization [facility] Address [address] [place] [address] Care Team Providers Care Filler Shredder Helper Name Role Phone Jennifer Weathers MD Primary Care Provider [phone] Reason for Visit * Reason Comments Medication Refill Encounter Details Date Type Department Care Team ([facility] st Contact Info) Description 09/16/2020 Refill [facility] Gastroenterology, [address] [phone] Olga Terrell MD [address] [place] [address] [phone] Constipation, unspecified Social History Tobacco Use Types [...] unspecified documented in this encounter Care Teams Filler Shredder Helper Relationship Specialty Start Date End Date Jennifer Weathers MD [address] [place] [address] PCP - General 08/15/19 documented as of this encounter
--- OUTSIDE RECORDS SUMMARY | 2025-03-29 09:27 | XMS_ITS | Clinical Summary ---
Author Organization [facility] Address [address] [place] [address] Phone Care Team Providers Care Sole Dyer Name Role Phone Myra Damian MD Unavailable [phone] Nishi Weathers Primary Care Provider [phone] Nishi Weathers Unavailable [phone] Allergies Active Allergy Reactions Criticality Noted Date Comments Acetaminophen Unknown 10/05/2018 Other Reaction(s): interaction with seizure meds Drug interaction Drug interaction Drug interaction Other reaction(s): interaction with seizure meds Drug interaction Apple Other,Unknown 04/28/2017 Vomiting with apple and rash ( red) [...] and fresh green apples Cat Dander 12/23/2020 [place] And Derivatives Rash Low 10/05/2018 Contact dermatitis Codeine 12/12/2019 Gluten 12/12/2019 Mold 08/15/2017 Reaction Type from PowerChart: Allergy; Multivit With Min-Folic Acid 12/23/2020 red apples, peaches, citrus fruits Nutritional Supplement-Fiber 10/19/2021 [place] (Prunus Persica) Hives,Other,Unkno w n 04/28/2017 Fresh peach causes contact hives. Able [...] to food, Pineapple anaphylaxis Pineapple 12/12/2019 Other Reaction(s): citrus fruits Other reaction(s): citrus fruits Pollen Extracts 12/23/2020 Medications fexofenadine (Carmel Allergy) 60 mg tablet Dose: 60 mg, Dose Amount: 1 tab, PO, BID, Entered: 08/15/17 10:08:32 EST 8 Active fexofenadine-pseud oephedrine (Carmel-D 24 Hour) 180-240 mg 24 hr tablet See Instructions , Special Instructions : 1 tab Qday, Entered: 12/22/18 12:42:44 EDT 9 Active ibuprofen 400 mg tablet Dose: 400 mg, Dose Amount: 1 tab, PO, Q6hr, PRN headache, Special Instructions : No more than 3 days per week. Dispense in 2 bottles: for school and home., Dispense Quantity: 20 tab, Refills: 5, Entered: 04/12/23 15:08:00 EDT, [facility]/pharmacy #[id number] 3 Active ketotifen (Alaway) 0.025 % (0.035 %) ophthalmic solution drop, Eye Both, BID, Entered: 04/29/17 9:16:43 EDT 7 Active ondansetron ODT (Zofran-ODT) 8 mg disintegrating tablet Dose: 8 mg, Dose Amount: 1 tab, PO, BID, PRN Nausea/Vomit ing, Dispense Quantity: 60 tab, Refills: 0, Entered: 12/06/22 11:21:00 EDT, [facility]/pharmacy #[id number] 3 Active polyethylene glycol 3350 (MIRALAX ORAL) g, PO, daily, Entered: 05/22/18 8:56:01 EST 8 Active pyridoxine (B-6) 100 mg tablet Dose: 100 mg, Dose Amount: 1 tab, PO, BID, Entered: 04/16/16 9:48:07 EDT 6 Active risperiDONE (RisperDAL) 0.5 mg tablet Dose: 0.5 mg, Dose Amount: 1 tab, PO, daily, Entered: 05/22/18 8:54:33 EST 8 Active rizatriptan (Maxalt) 10 mg tablet See Instructions , PRN migraine, Special Instructions : 1 tab PO at headache onsetmay repeat dose once in 2 hours. Dispense in 2 bottles:for school and home.90 day supply, Dispense Quantity: 27 tab, Refills: 3, Entered: 04/12/23 15:10:00 EDT, [facility]... 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 Take with 200mg tab for total morning dose of 300mg. 30 tablet 5 5 Active zonisamide 50 mg capsuleIndications :Focal epilepsy with impairment of consciousness, intractable (HCC) Take 250 mg = 5 capsules by mouth 1 time each day for 7 days, THEN 300 mg = 6 capsules 1 time each day. 215 capsule 5 Active cloBAZam 10 mg tabletIndications: Focal epilepsy with impairment of consciousness, intractable (HCC) Take 20 mg = 2 tablets by mouth every morning AND 30 mg = 3 tablets in the evening. 450 tablet 1 5 Active riboflavin 100 mg tablet tabletIndications: Intractable migraine without aura and with status migrainosus Take 100 mg = 1 tablet by mouth 2 times a day. 180 tablet 1 5 Active zonisamide 100 mg capsuleIndications :Focal epilepsy with impairment of consciousness, intractable (HCC) Take 300 mg = 3 capsules by mouth 1 time each day. 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 180 tablet 3 5 Active clonazePAM 2 mg disintegrating tabletIndications: Focal epilepsy with impairment of consciousness, intractable (HCC) Give one tab for seizure cluster of 2 or more in 1 hour or 3 or more in 4 hours. 5 tablet 5 Active diazePAM (Valtoco) 15 mg/2 spray (7.5/0.1mL x 2) spray,non-aerosolI ndications:Focal epilepsy with impairment of consciousness, intractable (HCC) Give 1 complete spray (7.5mg) in each nostril for seizure greater than 3 minutes. Total 1 time dose is 15mg, do not repeat. Call 911 if administered . 5 each 5 Active magnesium gluconate 27.5 mg magne- sium (500 mg) tabletIndications: Focal epilepsy with impairment of consciousness, intractable (HCC) Take 27.5 mg = 1 tablet by mouth 1 time each day. 90 tablet 5 Active clonazePAM (KlonoPIN) 2 mg disintegrating tabletIndications: Focal epilepsy with impairment of consciousness, intractable (HCC) Give one tab for seizure cluster of 2 or more in 1 hour or 3 or more in 4 hours. 10 tablet 4 025 Discontin ued(Reord er) diazePAM (Valtoco) 15 mg/2 spray (7.5/0.1mL x 2) spray,non-aerosolI ndications:Focal epilepsy with impairment of consciousness, intractable (HCC) Give 1 complete spray (7.5mg) in each nostril for seizure greater than 3 minutes. Total 1 time dose is 15mg, do not repeat. 2 each 1 4 025 Discontin ued(Reord er) magnesium gluconate 27.5 mg magne- sium (500 mg) tabletIndications: Focal epilepsy with impairment of consciousness, intractable (HCC) Take 27.5 mg = 1 tablet by mouth 1 time each day. 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) 12/28/2024 Telephone [facility] [address] [place] [phone] Pat Underwood MD Adult referral from Last 3 Months Social History Tobacco Use Types Packs/Day Years Used Date Smoking Tobacco: Never Passive Smoke Exposure: Never Tobacco Cessation:Counseling Given: Not Answered Comments Unknown Sex and Gender Information Value Date Recorded Sex Assigned at Female 12/13/2024 12:15 PM EDT Legal Sex Female 7:34 PM EDT Gender Identity Female 12/13/2024 12:15 PM EDT Sexual Orientation Straight 12/13/2024 12 :15 PM EDT Last Filed Vital Signs Vital Sign Reading Time Taken Comments Blood Pressure 101/71 09/13/2024 9:17 AM EST Pulse 71 09/13/2024 9:17 AM EST Temperature - - Respiratory Rate - - Oxygen Saturation - - Inhaled Oxygen Concentration - - Weight 68.5 kg (151 lb) 03/06/2025 11:09 AM EDT Height 150 cm (4' 11.06 ) 09/13/2024 9:17 AM EST Body Mass Index 30.44 09/13/2024 9:17 AM EST Plan of Treatment Scheduled Procedures Name Priority Associated Diagnoses Date/Ti me DENTAL EXTRACTIONS >30 MINS Health Maintenance Due Date Last Done Comments HIV Screening 2003 Meningococcal B Vaccine (1 of 2 - Standard) 2019 Hepatitis C Screening 2021 Influenza Vaccine (#1) 2025 0, 05/29/2019, 03/15/2018, Additional history exists DTaP/Tdap/Td Vaccines (6 - Td or Tdap) 10/22/2025 10/23/2015, 06/12/2007, 09/04/2004, Additional history exists Hepatitis B Vaccines Completed 03/05/2004, 2003, 2003 HIB Vaccines Completed 09/04/2004, 11/16, 2003, Additional history exists Pneumococcal Vaccine: Pediatrics (0 to 5 Years) and At-Risk Patients (6 to 49 Years) Aged Out 09/04/2004, 09/04/2004, 2004, Additional history exists No longer eligible based on patient's age to complete this topic IPV Vaccines Completed 06/12/2007, 11/16, 2003, Additional history exists MMR Vaccines Completed 06/12/2007, 09/04/2004 Varicella Vaccines Completed 06/12/2007, 2004 Hepatitis A Vaccines Completed 02/17/2017, 10/23/19 16 HPV Vaccines Completed 05/25/2018, 02/17/2017 Meningococcal Vaccine Completed 08/14/2020 , 10/23/2015, 10/23/2015 Rotavirus Vaccines Aged Out No longer eligible based on patient's age to complete this topic Insurance [facility]AL [facility] [place] [facility] [place] [facility] [place] [address] [place] [address] DENTAL [facility] Care Teams Sole Dyer Relationship Specialty Start Date End Date Myra Damian MD [address] [place] [address] [phone] PCP - Insurance PCP 12/08/18 Nishi Weathers [address] [place] [address] [place] [address] PCP - General 04/29/17 Nishi Weathers [address] [place] [address] [place] [address] PCP - Clinical PCP 11/17/20
--- OUTSIDE RECORDS SUMMARY | 2025-03-29 09:27 | XMS_ITS | Encounter Summary ---
Author Organization [facility] Address [address] [place] [address] Care Team Providers Care Heating And Blending Supervisor Name Role Phone Jennifer Weathers MD Primary Care Provider [phone] Reason for Visit * Reason Comments Medication Refill Encounter Details Date Type Department Care Team ([facility] st Contact Info) Description 02/29/2020 Refill [facility] Gastroenterology, [address] [phone] Olga Terrell MD [address] [place] [address] [phone] Constipation, unspecified Social History Tobacco Use Types [...] unspecified documented in this encounter Care Teams Heating And Blending Supervisor Relationship Specialty Start Date End Date Jennifer Weathers MD [address] [place] [address] PCP - General 08/15/19 documented as of this encounter
--- OUTSIDE RECORDS SUMMARY | 2025-03-29 09:27 | XMS_ITS | Encounter Summary ---
Author Organization [facility] Address [address] [place] [address] Care Team Providers Care Reservoir Engineer Name Role Phone Jennifer Weathers MD Primary Care Provider [phone] Reason for Visit * Reason Comments Medication Refill Encounter Details Date Type Department Care Team (Late st Contact Info) Description 03/28/2020 Refill [facility] Gastroenterology, [place] [address] [place] [address] Olga Terrell MD [address] [place] [phone] Poor appetite Social History Tobacco Use Types [...] Anorexia documented in this encounter Care Teams Reservoir Engineer Relationship Specialty Start Date End Date Jennifer Weathers MD [address] [place] [address] PCP - General 08/15/19 documented as of this encounter
--- OUTSIDE RECORDS SUMMARY | 2025-03-29 09:27 | XMS_ITS | Encounter Summary ---
Author Organization [facility] Address [address] [place] [address] Care Team Providers Care Presiding Steward Name Role Phone Jennifer Weathers MD Primary Care Provider [phone] Reason for Visit * Reason Comments Medication Refill Encounter Details Date Type Department Care Team ([facility] st Contact Info) Description 03/08/2023 Refill [facility] Gastroenterology, [address] [phone] Olga Terrell MD [address] [place] [address] Gastro-esophageal reflux disease without esophagitis Social History [...] esophagitis documented in this encounter Care Teams Presiding Steward Relationship Specialty Start Date End Date Jennifer Weathers MD [address] [place] [address] PCP - General 08/15/19 documented as of this encounter
--- OUTSIDE RECORDS SUMMARY | 2025-03-29 09:27 | XMS_ITS | Encounter Summary ---
Author Organization [facility] Address [address] [place] [address] Care Team Providers Care Silhouette Artist Name Role Phone Jennifer Weathers MD Primary Care Provider [phone] Reason for Visit * Reason Comments Medication Refill Encounter Details Date Type Department Care Team ([facility] st Contact Info) Description 04/02/2020 Refill [facility] Gastroenterology, [address] [phone] Olga Terrell MD [address] [place] [phone] Gastro-esophageal reflux disease without esophagitis Social History [...] esophagitis documented in this encounter Care Teams Silhouette Artist Relationship Specialty Start Date End Date Jennifer Weathers MD [address] [place] [address] PCP - General 08/15/19 documented as of this encounter
--- OUTSIDE RECORDS SUMMARY | 2025-03-29 09:27 | XMS_ITS | Encounter Summary ---
Author Organization [facility] Address [address] [place] [address] Care Team Providers Care Consumer Affairs Specialist Name Role Phone Jennifer Weathers MD Primary Care Provider [phone] Reason for Visit * Reason Comments Medication Refill Encounter Details Date Type Department Care Team ([facility] st Contact Info) Description 01/12/2021 Refill [facility] Gastroenterology, [address] [phone] Olga Terrell MD [address] [place] [address] [phone] Constipation, unspecified Social History Tobacco Use Types [...] unspecified documented in this encounter Care Teams Consumer Affairs Specialist Relationship Specialty Start Date End Date Jennifer Weathers MD [address] [place] [address] PCP - General 08/15/19 documented as of this encounter
--- OUTSIDE RECORDS SUMMARY | 2025-03-29 09:27 | XMS_ITS | Encounter Summary ---
Author Organization [facility] Address [address] [place] [address] Care Team Providers Care Specimen Technician Name Role Phone Jennifer Weathers MD Primary Care Provider [phone] Reason for Visit * Reason Comments Medication Refill Encounter Details Date Type Department Care Team (Late st Contact Info) Description 05/18/2020 Refill [facility] Gastroenterology, [place] [address] [place] [address] Olga Terrell MD [address] [place] [address] Poor appetite Social History Tobacco Use Types [...] Anorexia documented in this encounter Care Teams Specimen Technician Relationship Specialty Start Date End Date Jennifer Weathers MD [address] [place] [address] PCP - General 08/15/19 documented as of this encounter
--- OUTSIDE RECORDS SUMMARY | 2025-03-29 09:27 | XMS_ITS | Encounter Summary ---
Author Organization [facility] Address [address] [place] [address] Care Team Providers Care Case Specialist Name Role Phone Jennifer Weathers MD Primary Care Provider [phone] Reason for Visit * Reason Comments Medication Refill Encounter Details Date Type Department Care Team ([facility] st Contact Info) Description 02/25/2022 Refill [facility] Gastroenterology, [address] [phone] Olga Terrell MD [address] [place] [address] Gastro-esophageal reflux disease without esophagitis; Constipation, unspecified [...] documented in this encounter Care Teams Case Specialist Relationship Specialty Start Date End Date Jennifer Weathers MD [address] [place] [address] PCP - General 08/15/19 documented as of this encounter
--- OUTSIDE RECORDS SUMMARY | 2025-03-29 09:27 | XMS_ITS | Encounter Summary ---
Author Organization [address] [address] Care Team Providers Care Housing Grant Analyst Name Role Phone Jennifer Weathers MD Primary Care Provider Reason for Visit * Reason Comments Medication Refill Encounter Details Date Type Department Care Team (Late st Contact Info) Description 10/13/2020 Refill [facility] Gastroenterology, [place] [address] [place] [address] Olga Terrell MD [address] [place] [address] Gastro-esophageal reflux disease without esophagitis Social History [...] esophagitis documented in this encounter Care Teams Housing Grant Analyst Relationship Specialty Start Date End Date Jennifer Weathers MD [address] [place] [address] PCP - General 08/15/19 documented as of this encounter
--- OUTSIDE RECORDS SUMMARY | 2025-03-29 09:27 | XMS_ITS | Encounter Summary ---
Author Organization [facility] Address [address] [place] [address] Care Team Providers Care Orchid Superintendent Name Role Phone Jennifer Weathers MD Primary Care Provider [phone] Reason for Visit * Reason Comments Medication Refill Encounter Details Date Type Department Care Team ([facility] st Contact Info) Description 08/09/2021 Refill [facility] Gastroenterology, [address] [phone] Olga Terrell MD [address] [place] [address] [phone] Constipation, unspecified Social History Tobacco Use Types [...] unspecified documented in this encounter Care Teams Orchid Superintendent Relationship Specialty Start Date End Date Jennifer Weathers MD [address] [place] [address] PCP - General 08/15/19 documented as of this encounter
--- OUTSIDE RECORDS SUMMARY | 2025-03-29 09:27 | XMS_ITS | Encounter Summary ---
Author Organization [facility] Address [address] [place] [address] Care Team Providers Care Bridge Tender Name Role Phone Jennifer Weathers MD Primary Care Provider [phone] Reason for Visit * Reason Comments Medication Refill Encounter Details Date Type Department Care Team (Late st Contact Info) Description 02/10/2021 Refill [facility] G[facility]ology, [place] [address] [place] [address] Olga Terrell MD [address] [place] [id number] Gastro-esophageal reflux disease without esophagitis Social History [...] esophagitis documented in this encounter Care Teams Bridge Tender Relationship Specialty Start Date End Date Jennifer Weathers MD [address] [place] [address] PCP - General 08/15/19 documented as of this encounter
--- OUTSIDE RECORDS SUMMARY | 2025-03-29 09:27 | XMS_ITS | Clinical Summary ---
Author Organization [facility] Address [address] [place] [address] Phone Care Team Providers Care Narrative Writer Name Role Phone Jennifer Weathers Primary Care Provider [phone] Immunizations Immunization Administration Dates Next Due DTaP [...] 79 11/27/2015 9:28 AM EDT Temperature 37.2 C (98.9 F) 08/18/2015 2:36 PM EST Respiratory Rate - - Oxygen Saturation 98% [...] 2 - Standard) 2019 Influenza Vaccines (#1) 2025 05/28/2015 COVID-19 Vaccine (1 - season) 2025 DTaP,Tdap,and Td Vaccines (6 - Td or [...] age to complete this topic Care Teams Narrative Writer Relationship Specialty Start Date End Date Jennifer Weathers [address] [place] [address] PCP - General 11/23/17
--- OUTSIDE RECORDS SUMMARY | 2025-03-29 09:27 | XMS_ITS | Encounter Summary ---
Author Organization [facility] Address [address] [place] [address] Care Team Providers Care Spiritual Counselor Name Role Phone Jennifer Weathers MD Primary Care Provider [phone] Reason for Visit * Reason Comments Medication Refill Encounter Details Date Type Department Care Team ([facility] st Contact Info) Description 04/26/2021 Refill [facility] Gastroenterology, [place] [phone] Katya Atrhur MD [address] [place] [id number] Constipation, unspecified Social History Tobacco Use Types [...] unspecified documented in this encounter Care Teams Spiritual Counselor Relationship Specialty Start Date End Date Jennifer Weathers MD [address] [place] [address] PCP - General 08/15/19 documented as of this encounter
--- OUTSIDE RECORDS SUMMARY | 2025-03-29 09:27 | XMS_ITS | Clinical Summary ---
Author Organization [facility] Address [address] [place] [address] Care Team Providers Care Spa Assistant Manager Name Role Phone Jennifer Weathers MD Primary Care Provider [phone] Source Comments Please note that some or [...] so, obtain the minor's consent prior to disclosure.[facility] Allergies Active Allergy Reactions Criticality Noted Date Comments Acetaminophen Other (See Comments) 10/05/2018 Drug interaction Other reaction(s): interaction with seizure meds Other Reaction(s): interaction with seizure meds Drug interaction Drug interaction Drug interaction Other reaction(s): interaction with seizure meds Drug interaction Apple Other (See Comments) 04/28/2017 Nausea [...] 12/23/2020 Cat Hair Standardized Allergenic Extract 12/23/2020 [place] And Derivatives Rash Low 10/05/2018 Contact dermatitis Codeine 12/12/2019 Gluten 12/12/2019 [place] 03/07/2023 Mold 08/15/2017 Reaction Type from PowerChart: Allergy; Multivit With Min-Folic Acid 12/23/2020 red apples, peaches, citrus fruits Nutritional Supplement-Fiber 10/19/2021 [place] 10/19/2021 Other reaction(s): 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 Please provide an extra labeled bottle for school, # 30 tablet, 0 Refills, Maintenance, 11/05/22 14:30:00 EDT, [facility]/pharmacy #[id number], 150, cm, 10/21/22 16:00:00 [...] Replace Required Details, Route to Pharmacy Electronically, [facility]/pharmacy #[id number], Partial fill... 12/04/19 23 Active risperiDONE [...] into the muscle 06/01/20 24 Active PNV,calcium 17-efhr-vzbhh acid 27 mg iron- 1 mg Tablet See Instructions, TAKE 1 TABLET BY MOUTH EVERY DAY, # 30 tablet, 3 Refills, Maintenance, 10/25/23 15:46:00 EDT, [id number], 30, TAKE 1 TABLET BY MOUTH EVERY DAY, 158, cm, 05/31/23 15:01:00 EST, Height, 61, kg, 12/31/22 12:13:00 EDT, Dry Weight 10/25/19 24 Active PNV,calcium 69-qgrf-hwcja acid 27 mg iron- 1 mg Tablet Take 1 tablet by mouth 05/22/20 24 Active riboflavin, vitamin B2, 100 mg Tablet Take 100 mg by mouth 09/26/19 25 Active linaCLOtide (LINZESS) 72 mcg Capsule capsuleIndications :Constipation, unspecified constipation type Take 1 capsule (72 mcg) by mouth daily 30 capsule 6 10/20/19 25 Active famotidine (PEPCID) 20 MG tabletIndications: Constipation, unspecified constipation type Take 1 tablet (20 mg) by mouth 2 (two) times daily 60 tablet 6 10/20/19 25 Active Active Problems No known active problems Social History Tobacco Use Types Packs/Day Years [...] 2010 ADOLESCENT HIV SCREENING 2016 COVID-19 Vaccine (1 - 2023-2 5 season) 2025 INFLUENZA (#1) 2025 NIRSEVIMAB VACCINES UNDER 8 MONTHS Aged Out No longer eligible based on patient's age to complete this topic Insurance [facility] [place] [employer] Care Teams Spa Assistant Manager Relationship Specialty Start Date End Date Jennifer Weathers MD [address] [place] [address] PCP - General 08/15/19
--- OUTSIDE RECORDS SUMMARY | 2025-03-29 09:27 | XMS_ITS | Encounter Summary ---
Author Organization [address] [address] Care Team Providers Care Precast Concrete Products Installer Name Role Phone Jennifer Weathers MD Primary Care Provider [phone] Reason for Visit * Reason Comments Medication Refill Encounter Details Date Type Department Care Team (Late st Contact Info) Description 07/21/2022 Refill [facility] G[facility], [place] [address] [place] [address] Olga Terrell MD [address] [place] [phone] Constipation, unspecified constipation type; Constipation, unspecified Social [...] type documented in this encounter Care Teams Precast Concrete Products Installer Relationship Specialty Start Date End Date Jennifer Weathers MD [address] [place] [address] PCP - General 08/15/19 documented as of this encounter
--- OUTSIDE RECORDS SUMMARY | 2025-03-29 09:27 | XMS_ITS | Encounter Summary ---
Author Organization [facility] Address [address] [place] [address] Care Team Providers Care Mica Laminating Machine Feeder Name Role Phone Jennifer Weathers MD Primary Care Provider [phone] Reason for Visit * Reason Comments Medication Refill Encounter Details Date Type Department Care Team ([facility] st Contact Info) Description 06/21/2022 Refill [facility] Gastroenterology, [address] [phone] Olga Terrell MD [address] [place] [phone] Gastro-esophageal reflux disease without esophagitis Social History [...] esophagitis documented in this encounter Care Teams Mica Laminating Machine Feeder Relationship Specialty Start Date End Date Jennifer Weathers MD [address] [place] [address] PCP - General 08/15/19 documented as of this encounter
== END 2025-03-29 10:04 | disposition home or self-care (01) ==
LOC: HO.HMCP 08:46
PROVIDERS: PCP Pediatrics; Visit Provider Pediatrics
DX: Z00.00 Encounter for general adult medical examination without abnormal findings (principal); G80.9 Cerebral palsy, unspecified; G40.909 Epilepsy, unspecified, not intractable, without status epilepticus; G43.909 Migraine, unspecified, not intractable, without status migrainosus; M79.641 Pain in right hand; M25.531 Pain in right wrist; F84.0 Autistic disorder; F42.9 Obsessive-compulsive disorder, unspecified; F41.9 Anxiety disorder, unspecified

== ENCOUNTER 2025-03-29 08:46 | Outpatient (REF) | payer OTHER, SELFPAY ==
--- NOTE | ~2025-03-29 | XR_ITS ---
EXAMINATIONS: 1. XR WRIST NAVICULAR RIGHT 2. XR HAND 3 OR MORE VIEWS RIGHT CLINICAL INFORMATION: M79.641 - Pain in right hand COMPARISON: None available. TECHNIQUE: PA, lateral, oblique, and scaphoid views of the right wrist. 3 views of the right hand FINDINGS: The bones and soft tissues are normal. No fracture. Alignment is anatomic with normal joint spaces. No erosions or abnormal soft tissue calcifications. XR/XR wrist RT w scaphoid IMPRESSION: Normal right wrist Normal right hand Electronically signed by: Ana Franklin MD 03/29/2025 10:44 AM EDT
--- NOTE | ~2025-03-29 | XR_ITS ---
EXAMINATIONS: 1. XR WRIST NAVICULAR RIGHT 2. XR HAND 3 OR MORE VIEWS RIGHT CLINICAL INFORMATION: M79.641 - Pain in right hand COMPARISON: None available. TECHNIQUE: PA, lateral, oblique, and scaphoid views of the right wrist. 3 views of the right hand FINDINGS: The bones and soft tissues are normal. No fracture. Alignment is anatomic with normal joint spaces. No erosions or abnormal soft tissue calcifications. XR/XR hand RT min 3V IMPRESSION: Normal right wrist Normal right hand Electronically signed by: Ana Franklin MD 03/29/2025 10:44 AM EDT
--- OUTSIDE RECORDS SUMMARY | 2025-03-29 11:38 | XMS_ITS ---
Author Name [facility] Organization Unknown History of Medication Use Medication Directions Dispensed Refills Start Date End Date Status bisacodyL (DULCOLAX) 5 mg EC tablet Take 2 tablets (10 mg) by mouth daily as needed for constipation. 5 10/15/19 25 completed linaCLOtide (LINZESS) 145 mcg Capsule capsule Take 1 capsule (145 mcg) by mouth daily 4 active linaCLOtide (LINZESS) 72 mcg Capsule Take 72 mcg by mouth daily 4 01/13/20 24 active senna (SENOKOT) 8.6 mg tablet Take 1 tablet by mouth nightly 4 01/13/20 24 active famotidine (PEPCID) 20 MG tablet TAKE 1 TABLET (20 MG) BY MOUTH TWICE A DAY 4 01/13/20 24 active desmopressin (DDAVP) 0.1 MG tablet TAKE 1 TABLET BY MOUTH AT BEDTIME FOR 90 DAYS 3 active sertraline (ZOLOFT) 25 MG tablet TAKE 2 TABLET BY MOUTH DAILYTAKE WITH 100MG TABLET FOR TOTAL DAILY DOSE OF 150MG 3 active QUEtiapine (SEROQUEL XR) 50 mg Tablet Extended Release 24 hr Please see attached for detailed directions 3 active QUEtiapine (SEROQUEL) 25 MG tablet 1 TABLET BY MOUTH AT BEDTIME FOR 1 WEEK THEN INCREASE TO 2 TABS (50MG) BY MOUTH AT BEDTIME 3 active ofloxacin (FLOXIN) 0.3 % otic solution INSTILL 10 DROPS INTO THE EAR TWICE DAILY FOR 10 DAYS 3 active naproxen (NAPROSYN) 500 MG tablet TAKE 1 TABLET BY MOUTH 2 TIMES DAILY WITH FOOD FOR 5 DAYS 3 active VALTOCO 15 mg/2 spray (7.5/0.1mL x 2) [place], Non-Aerosol Please see attached for detailed directions 3 active hydrOXYzine (ATARAX) 25 MG tablet See Instructions, 1 tablet PO qhs. Can take 2 tabs PO qhs if needed, # 60 tablet, 0 Refills, Acute 12/05/23 15:46:00 EDT, 11/07/23 14:31:00 EDT, [facility]/pharmacy #[id number], Partial fill upon patient request if the prescription is for a schedule II opioid drug... 3 12/06/19 24 active clonazePAM (KLONOPIN) 2 MG disintegrating tablet 02 3 active riboflavin, vitamin B2, 100 mg Tablet 100 mg 3 active ibuprofen (MOTRIN) 400 MG tablet 400 mg 3 active GAVILAX 17 gram/dose powder DISSOLVE 17 GRAMS INTO WATER AND DRINK BY MOUTH EVERY DAY 3 08/17/19 24 active metroNIDAZOLE (FLAGYL) 500 MG tablet Take by mouth 2 10/23/19 22 active SENNA 8.6 mg tablet TAKE 1 TABLET BY MOUTH EVERY DAY AT NIGHT 2 active risperiDONE (RISPERDAL M-TABS) 1 MG disintegrating tablet Take by mouth 1 12/08/19 22 active sertraline (ZOLOFT) 100 MG tablet Take by mouth 1 12/08/19 22 active levonorgestreL (LILETTA) 20.1 mcg/24 hrs (6 yrs) 52 mg IUD by Intrauterine route 1 active levonorgestreL (LILETTA) 20.1 mcg/24 hrs (6 yrs) 52 mg IUD by Intrauterine route 1 active medroxyPROGESTERone (DEPO-PROVERA) 150 mg/mL injection mg, IM, Entered: 12/22/20 11:26:00 EDT 1 active cyproheptadine (PERIACTIN) 4 mg tablet TAKE 1 TABLET BY MOUTH EVERY DAY IN THE MORNING 0 active cyproheptadine (PERIACTIN) 4 mg tablet TAKE 1 TABLET BY MOUTH EVERY DAY IN THE MORNING 0 active polyethylene glycol (MIRALAX) 17 gram/dose powder Take 17 g by mouth 2 (two) times daily 1 capful twice daily 0 05/30/20 20 completed famotidine (PEPCID) 20 MG tablet TAKE 1 TABLET (20 MG) BY MOUTH 2 (TWO) TIMES DAILY 0 10/14/19 21 active SENNA 8.6 mg tablet TAKE 1 TABLET BY MOUTH NIGHTLY 0 10/26/19 23 active polyethylene glycol (MIRALAX) 17 gram/dose powder Mix 16 capfuls in 64 oz gatorade drink over 4 to 6 hours 0 active zonisamide (ZONEGRAN) 50 MG capsule TAKE 1 CAP BY MOUTH DAILY FOR 1 WEEK, THEN 2 CAPS DAILY X1 WEEK, THEN 3 DAILY X1 WEEK, THEN 4 DAILY 0 active XULANE 150-35 mcg/24 hr 1 PATCH TOPICALLY EVERY WEEK,APPLY 1 PATCH WEEKLY FOR 3 WEEKS, REMOVE FOR 1 WEEK, THEN REPEAT CYCLE 0 active risperiDONE (RISPERDAL) 1 MG tablet TAKE 1 TABLET BY MOUTH EVERYDAY AT BEDTIME 0 active risperiDONE (RISPERDAL) 1 MG tablet TAKE 1 TABLET BY MOUTH EVERYDAY AT BEDTIME 0 active SUMAtriptan (IMITREX) 50 MG tablet TAKE 1 TABLET BY MOUTH AT ONSET OF HEADACHE. MAY REPEAT 1 TAB IN 2 HOURS IF NEEDED. MAX 2/DAY 4/WEEK 0 active SUMAtriptan (IMITREX) 50 MG tablet TAKE 1 TABLET BY MOUTH AT ONSET OF HEADACHE. MAY REPEAT 1 TAB IN 2 HOURS IF NEEDED. MAX 2/DAY 4/WEEK 0 active LAMICTAL ODT 100 mg Tablet, Rapid Dissolve TAKE 2 TABLETS BY MOUTH TWICE A DAY 0 active polyethylene glycol (MIRALAX) 17 gram packet MIX 16 PACKETS IN 64 OUNCES GATORADE AND DRINK OVER 4 6 HOURS, FOLLOWED BY 1 PACKET TWICE A DAY 0 04/29/20 20 active omeprazole (PRILOSEC) 20 MG capsule TAKE 1 CAPSULE BY MOUTH EVERY DAY 0 active omeprazole (PRILOSEC) 20 MG capsule TAKE 1 CAPSULE BY MOUTH EVERY DAY 0 active traZODone (DESYREL) 50 MG tablet TAKE 1 TABLET BY MOUTH EVERY DAY AT BEDTIME FOR INSOMNIA 0 active traZODone (DESYREL) 50 MG tablet TAKE 1 TABLET BY MOUTH EVERY DAY AT BEDTIME FOR INSOMNIA 0 active fluticasone propionate (FLONASE) 50 mcg/actuation nasal spray by Nasal route 0 active fluticasone propionate (FLONASE) 50 mcg/actuation nasal spray by Nasal route 0 active melatonin 5 mg tablet TAKE 1 TABLET BY MOUTH DAILY AT BEDTIME NEEDED FOR INSOMNIA 0 active sertraline (ZOLOFT) 50 MG tablet Take 100 mg by mouth daily 0 active sertraline (ZOLOFT) 50 MG tablet Take 100 mg by mouth daily 0 active ondansetron (ZOFRAN-ODT) 8 MG disintegrating tablet TAKE 1 TABLET BY MOUTH AT ONSET OF HEADACHE/NAUSEA WHEN NEEDED FOR NAUSEA OR VOMITING 9 active lamoTRIGine (LAMICTAL) 25 MG disintegrating tablet Take by mouth 9 active sennosides 15 mg Tablet, Chewable TAKE 1 TABLET BY MOUTH TWICE A DAY 9 active sennosides 15 mg Tablet, Chewable TAKE 1 TABLET BY MOUTH TWICE A DAY 9 active EPINEPHrine (EPIPEN) 0.3 mg/0.3 mL injection Inject 1 Device as directed as needed (anaphylaxis). Use as directed 7 03/07/20 23 active cyanocobalamin 500 MCG tablet Take by mouth 05/26/20 20 active cholecalciferol, vitamin D3, 12.5 mcg Tablet Take by mouth ac tive cholecalciferol, vitamin D3, 12.5 mcg Tablet Take by mouth ac tive cloBAZam (ONFI) 20 mg tablet 50 mg active clonazePAM (KLONOPIN) 1 MG tablet Take by mouth active clonazePAM (KLONOPIN) 1 MG tablet Take by mouth active cyanocobalamin 500 MCG tablet Take by mouth active diazepam (VALIUM) 5 mg/mL injection Inject 10 mg as directed as needed. active diazepam (VALIUM) 5 mg/mL injection Inject 10 mg as directed as needed. active ferrous gluconate (FERGON) 240 (27 FE) MG tablet Take by mouth active ferrous gluconate (FERGON) 240 (27 FE) MG tablet Take by mouth active magnesium gluconate 27 mg magnesium (500 mg) Tablet Take by mouth active magnesium gluconate 27 mg magnesium (500 mg) Tablet Take by mouth active magnesium oxide 500 mg Capsule Take by mouth active multivitamin tablet Take by mouth active pyridoxine, vitamin B6, (B-6) 100 MG tablet Take by mouth ac tive pyridoxine, vitamin B6, (B-6) 100 MG tablet Take by mouth ac tive QUEtiapine (SEROQUEL) 100 MG tablet Take 100 mg by mouth nightly active riboflavin, vitamin B2, 100 mg Tablet Take 400 mg by mouth daily active riboflavin, vitamin B2, 100 mg Tablet Take 400 mg by mouth daily active riboflavin, vitamin B2, 100 mg Tablet Take by mouth active SUMAtriptan (IMITREX) 25 MG tablet Take by mouth active SUMAtriptan (IMITREX) 25 MG tablet Take by mouth active SUMAtriptan (IMITREX) 25 MG tablet Take by mouth active tretinoin (RETIN-A) 0.025 % cream Apply topically active Allergies Allergen Reaction Severity Comment Documented Date Source Status AR 03/07/2023 [facility] active PEACH Other reaction(s): Anaphylactic reaction to food, Pineapple,anaphy laxis 10/19/2021 [facility] active SEASONAL 12/23/2020 [facility] active PINEAPPLE Other reaction(s): citrus fruits 12/12/2019 [facility] active CITRUS AND DERIVATIVES RASH Contact dermatitis 10/05/2018 [facility] active MOLD Reaction Type from PowerChart: Allergy; 08/15/2017 [facility] active PEACH (PRUNUS PERSICA) OTHER (SEE COMMENTS)OTHE R (SEE COMMENTS) Fresh peach causes contact hives. Able to eat processed 04/28/2017 [facility] active ACETAMINOPHEN OTHER (SEE COMMENTS) Other reaction(s): interaction with seizure meds, Drug interaction [facility] APPLE OTHER (SEE COMMENTS) Vomiting with apple and rash ( red),Can eat green and apple juice,Other reaction(s): OTHER, ,Nausea with red apples that are fresh, can eat processed and fresh green apples [facility] APPLE JUICE Vomiting with apple and rash,Nausea with red apples that are fresh, can eat processed and fresh green apples [facility] CAT HAIR STANDARDIZED ALLERGENIC EXTRACT [facility] CODEINE [facility] GLUTEN [facility] Problems Problem Status Onset Date Problem Type Date of Resolution Source Constipation, unspecified constipation type active EncounterDiagnosisAct C [facility] Encounters Encounter Type Encounter Reason Primary Diagnosis Location Date Ambulatory Constipation, unspecified Constipation, unspecified [facility] ([facility]) 10/19/2024 Ambulatory Constipation, unspecified Constipation, unspecified [facility] ([facility]) 12/13/2023 Ambulatory Constipation, unspecified Constipation, unspecified [facility] ([facility]) 03/07/2023 Ambulatory [facility] 10/27/2022 Ambulatory [facility] 04/20/2022 Ambulatory [facility] 10/19/2021 Care Team Organization Name Specialty Phone Email Start Date End Da te [facility] ([facility]) RAJESH WEATHERS Primary Care 08/07/2023 [facility] Rajesh Weathers Primary Care 03/07/2023 01/30/20 [facility] Rajesh Weathers Primary Care 10/28/2022 [facility] Rajesh Weathers Primary Care 04/23/2022
== END 2025-03-29 08:47 | disposition home or self-care (01) ==
LOC: HO.XRAY 08:46
PROVIDERS: PCP Pediatrics; Visit Provider Pediatrics
DX: Z00.01 Encounter for general adult medical examination with abnormal findings (principal); M79.641 Pain in right hand; M25.531 Pain in right wrist; G43.909 Migraine, unspecified, not intractable, without status migrainosus; G80.9 Cerebral palsy, unspecified; G40.909 Epilepsy, unspecified, not intractable, without status epilepticus; F84.0 Autistic disorder; F42.9 Obsessive-compulsive disorder, unspecified; F41.9 Anxiety disorder, unspecified; Z13.31 Encounter for screening for depression; Z13.39 Encounter for screening examination for other mental health and behavioral disorders
CPT/HCPCS: 73110; 73130; 96127; 96160; 99395

== ENCOUNTER → 2025-03-29 10:17 | Outpatient (BNV) | payer OTHER, SELFPAY | PROVIDERS: PCP Pediatrics; Visit Provider Radiology Body Imaging | DX: M79.641 Pain in right hand (principal); M25.531 Pain in right wrist | CPT/HCPCS: 73110; 73130 ==

== ENCOUNTER 2025-05-01 14:33 | Outpatient (AMB) | payer OTHER, SELFPAY ==
--- OUTSIDE RECORDS SUMMARY | 2025-04-30 13:00 | XMS_ITS | Encounter Summary ---
Author Organization [facility] Address [address] [place] [address] Care Team Providers Care Managing Editor Name Role Phone Jennifer Weathers MD Primary Care Provider [phone] Reason for Visit * Reason Comments Abdominal Pain * CFC AUTH/CERT (Routine) - Authorized Specialty Diagnoses / Procedures Referred By Contac t Referred To Contact Gastroenterology Diagnoses FUV Procedures FOLLOW UP Jennifer Weathers MD [address] [place] [address] [place] [address] Phone: tel: fax: Olga Terrell MD [address] [place] [address] Phone: tel: fax: Referral ID Status Reason Start Date Expiration Date V isits Requested Visits Authorized [id number] Authorized 10/19/2024 07/17/2025 1 99 Encounter Details Date Type Department Care Team (Late st Contact Info) Description 04/30/2025 1:00 PM EDT Office Visit [facility], [address] [place] [address] Olga Terrell MD [address] [place] [phone] Constipation, unspecified constipation type (Primary Dx) Social History Tobacco Use Types Packs/Day Years Used Date Smoking Tobacco: Never Smokeless Tobacco: Never Comments No Sex and Gender Information Value Date Recorded Sex Assigned at Not on file Legal Sex Female 2:11 PM EST Gender Identity Not on file Sexual Orientation Not on file documented as of this encounter Last Filed Vital Signs Vital Sign Reading Time Taken Comments Blood Pressure 103/69 04/30/2025 12:08 PM EDT Pulse - - Temperature - - Respiratory Rate - - Oxygen Saturation - - Inhaled Oxygen Concentration - - Weight 69.8 kg (153 lb 14.1 oz) 025 12:08 PM EDT Height 153 cm (5' 0.24 ) 04/30/2025 12: 08 PM EDT Body Mass Index 29.82 04/30/2025 12:08 PM EDT documented in this encounter Patient Instructions * Patient Instructions* Olga Terrell MD - 04/30/2025 1:00 PM EDT 1. Start miralax 16 capfuls in 64 oz gatorade , drink over 4-6 hours for bowel cleanout 2. After cleanout Start Linzess 145 mcg once daily 3. Continue Senna 2 pills once daily at night 4. Follow up in 3 months It was a pleasure to see you today. Please do not hesitate to reach out if you have any questions or concerns that come up before your next scheduled appointment. For any urgent or after-hours concerns, our on- call team may be reached at [phone]. For non urgent questions, you can call our office at [phone] or contact via Mfuse. Medications will be sent to your pharmacy. Please call if you have any difficulty in obtaining the medication. Call atleast 7 to 10 days in advance for medication refill requests and any paperwork that needs to be completed/ filled. documented in this encounter Progress Notes * Olga Terrell MD - 04/30/2025 1:00 PM EDT Subjective: Paola is a 19 y.o. female being seen for evaluation and management of reflux and constipation [facility] Jennifer Weathers MD Chief Complaint: Abdominal Pain HISTORY: At the last visit in October, I recommended her to continue Linzess. I also ordered stool test tofollow-up on prior abnormal stool calprotectin levels. Advised to continue famotidine for reflux. In the interim, patient was doing well until few days ago. She reports that she has been experiencing generalized abdominal pain, passing stools every 3 to 4 days, which are hard in consistency and difficult to pass. She denies any other symptoms such as vomiting or nausea. No changes in appetite or weight loss noted. The patients past medical, surgical, family and social history have been reviewed with the patient and caregiver, and have been updated in the relevant section of the EMR . I have reviewed patient's outside records. Summary findings are in HPI. Allergies Allergen Reactions Acetaminophen Other (See Comments) Drug interaction Other reaction(s): interaction with seizure meds Other Reaction(s): interaction with seizure meds Drug interaction Drug interaction Drug interaction Other reaction(s): interaction with seizure meds Drug interaction Apple Other (See Comments) Nausea with red apples that are fresh, [...] processed and fresh green apples Apple Juice Vomiting with apple and rash Nausea with red apples that are fresh, can eat processed and fresh green apples Nausea with red apples that are fresh, can eat processed and fresh green apples Nausea with red apples that are fresh, can eat processed and fresh green apples Cat Dander Cat Hair Standardized Allergenic Extract Codeine Gluten [place] Mold Reaction Type from PowerChart: Allergy; Multivit With Min-Folic Acid red apples, peaches, citrus fruits Nutritional Supplement-Fiber Lassen Other reaction(s): Anaphylactic reaction to food, Pineapple anaphylaxis Lassen (Prunus Persica) Hives and Other (See Comments) Fresh peach causes contact hives. Able to [...] Anaphylactic reaction to food, Pineapple anaphylaxis Pineapple Other reaction(s): citrus fruits Other Reaction(s): citrus fruits Other reaction(s): citrus fruits Pollen Extracts Seasonal Hamblen And Derivatives Rash Contact dermatitis Outpatient Encounter Medications as of 04/30/2025 Medication Sig ARIPiprazole (ABILIFY) 2 MG tablet Take 2 mg by mouth in the morning. cephalexin (KEFLEX) 500 MG capsule TAKE 1 CAPSULE BY MOUTH FOUR TIMES A DAY doxycycline (ADOXA) 100 mg Tablet 1 TABLET TWICE A DAY ibuprofen (MOTRIN) 600 MG tablet 1 TABLET EVERY 6 HOURS NEEDED FOR PAIN lamoTRIgine (LAMICTAL) 200 MG tablet Take 200 mg by mouth magnesium gluconate (MAGONATE) 27.5 mg magne- sium (500 mg) tablet Take 27.5 mg by mouth PNV no.95/ferrous fum/folic ac ( MULTIVITAMINS ORAL) Take by mouth ALAWAY 0.025 % (0.035 %) ophthalmic solution PLACE 1 DROP INTO BOTH EYES 2 TIMES DAILY NEEDED bisacodyL (DULCOLAX, BISACODYL,) 5 mg EC tablet Take 2 tablets prior to taking magnesium citrate for cleanout (Patient not taking: Reported on 10/19/2024) cholecalciferol (VITAMIN D3) 25 mcg (1,000 unit) chewable tablet Take by mouth cholecalciferol, vitamin D3, 12.5 mcg Tablet Take by mouth cholecalciferol, vitamin D3, 50 mcg (2,000 unit) capsule Take by mouth cloBAZam (ONFI) 10 mg tablet Take by mouth cloBAZam (ONFI) 20 mg tablet 50 mg clonazePAM (KLONOPIN) 1 MG tablet Take by mouth clonazePAM (KLONOPIN) 2 MG disintegrating tablet COVID-19 AT-HOME TEST Kit TEST (Patient not taking: Reported on 10/19/2024) cyanocobalamin 500 MCG tablet Take by mouth (Patient not taking: Reported on 10/19/2024) cyproheptadine (PERIACTIN) 4 mg tablet TAKE 1 TABLET BY MOUTH EVERY DAY IN THE MORNING (Patient nottaking: Reported on 10/19/2024) desmopressin (DDAVP) 0.1 MG tablet TAKE 1 TABLET BY MOUTH AT BEDTIME FOR 90 DAYS diazepam (VALIUM) 5 mg/mL injection 10 mg. (Patient not taking: Reported on 10/19/2024) diazepam (VALIUM) 5 mg/mL injection Inject 10 mg as directed as needed. (Patient not taking: Reported on 10/19/2024) EPINEPHrine (EPIPEN) 0.3 mg/0.3 mL injection 1 Device. famotidine (PEPCID) 20 MG tablet Take 1 tablet (20 mg) by mouth 2 (two) times daily as needed for Heartburn famotidine (PEPCID) 20 MG tablet TAKE 1 TABLET (20 MG) BY MOUTH TWICE A DAY famotidine (PEPCID) 20 MG tablet Take 1 tablet (20 mg) by mouth 2 (two) times daily ferrous gluconate (FERGON) 240 (27 FE) MG tablet Take by mouth fexofenadine (BABATUNDE) 180 MG tablet Take 1 tablet by mouth daily fluticasone propionate (FLONASE) 50 mcg/actuation nasal spray by Nasal route hydrOXYzine (ATARAX) 10 MG tablet See Instructions, PRN as needed for anxiety, 1 tablet By Mouth PRN for anxiety. Please provide anextra labeled bottle for school, # 30 tablet, 0 Refills, Maintenance, 11/05/22 14:30:00 EDT, [facility]/pharmacy #[id number], 150, cm, 10/21/22 16:00:00 EDT, Juan C... hydrOXYzine (ATARAX) 10 mg/5 mL syrup Take by mouth hydrOXYzine (ATARAX) 25 MG tablet TAKE 1 TABLET BY MOUTH AT BEDTIME MAY TAKE 2 IF NEEDED ibuprofen (MOTRIN) 400 MG tablet Take by mouth ibuprofen (MOTRIN) 400 MG tablet 400 mg ketotifen (ZADITOR) 0.025 % (0.035 %) ophthalmic solution Apply to eye ketotifen (ZADITOR) 0.025 % (0.035 %) ophthalmic solution Apply to eye ketotifen (ZADITOR) 0.025 % (0.035 %) ophthalmic solution Apply to eye LAMICTAL ODT 100 mg Tablet, Rapid Dissolve lamoTRIgine (LAMICTAL) 100 MG tablet TAKE 1 TABLET BY MOUTH IN MORNING ALONG WITH 200MG DIRECTED lamoTRIgine (LAMICTAL) 100 MG tablet Take 100 mg by mouth lamoTRIgine (LAMICTAL) 200 MG tablet Please see attached for detailed directions lamoTRIgine (LAMICTAL) 200 MG tablet Take 200 mg by mouth lamoTRIGine (LAMICTAL) 25 MG disintegrating tablet Take by mouth lamoTRIgine (LAMICTAL) 25 MG tablet levonorgestreL (LILETTA) 20.1 mcg/24 hrs (6 yrs) 52 mg IUD by Intrauterine route (Patient not taking: Reported on 10/19/2024) linaCLOtide (LINZESS) 145 mcg Capsule capsule Take 1 capsule (145 mcg) by mouth daily linaCLOtide (LINZESS) 145 mcg Capsule capsule Take 1 capsule (145 mcg) by mouth in the morning. linaCLOtide (LINZESS) 72 mcg Capsule capsule 30 each, 0 Refill(s), TAKE 1 CAPSULE BY MOUTH EVERY DAY, 0 Refills, 01/30/24 4:43:00 PM EDT, Partial fill upon patient request if the prescription is for aschedule II opioid drug. linaCLOtide (LINZESS) 72 mcg Capsule capsule Take 1 capsule (72 mcg) by mouth daily magnesium gluconate (MAGONATE) 27.5 mg magne- sium (500 mg) tablet Take by mouth magnesium gluconate (MAGONATE) 27.5 mg magne- sium (500 mg) tablet 500 mg magnesium gluconate (MAGONATE) 27.5 mg magne- sium (500 mg) tablet Take 27.5 mg by mouth magnesium gluconate 27 mg magnesium (500 mg) Tablet Take by mouth magnesium oxide 500 mg Capsule Take by mouth medroxyPROGESTERone (DEPO-PROVERA) 150 mg/mL injection mg, IM, Entered: 12/22/20 11:26:00 EDT (Patient not taking: Reported on 10/19/2024) medroxyPROGESTERone (DEPO-PROVERA) 150 mg/mL injection Inject into the muscle (Patient not taking: Reported on 10/19/2024) medroxyPROGESTERone (DEPO-PROVERA) 150 mg/mL injection Inject 1 mL into the muscle (Patient not taking: Reported on 10/19/2024) medroxyprogesterone acetate (DEPO-PROVERA IM) Inject 150 mg into the muscle melatonin 5 mg tablet TAKE 1 TABLET BY MOUTH DAILY AT BEDTIME NEEDED FOR INSOMNIA (Patient not taking: Reported on 10/19/2024) multivit-min/ferrous fumarate (MULTI VITAMIN ORAL) Take by mouth multivitamin capsule Take by mouth multivitamin tablet Take by mouth naproxen (NAPROSYN) 500 MG tablet ofloxacin (FLOXIN) 0.3 % otic solution INSTILL 10 DROPS INTO THE EAR TWICE DAILY FOR 10 DAYS (Patient not taking: Reported on 10/19/2024) omeprazole (PRILOSEC) 20 MG capsule TAKE 1 CAPSULE BY MOUTH EVERY DAY omeprazole (PRILOSEC) 20 MG capsule ondansetron (ZOFRAN-ODT) 8 MG disintegrating tablet TAKE 1 TABLET BY MOUTH AT ONSET OF HEADACHE/NAUSEA WHEN NEEDED FOR NAUSEA OR VOMITING oseltamivir (TAMIFLU) 75 MG capsule TAKE 1 CAPSULE BY MOUTH TWICE DAILY FOR 5 DAYS (Patient not taking: Reported on 10/19/2024) PNV no.95/ferrous fum/folic ac ( MULTIVITAMINS ORAL) Take 1 tablet by mouth PNV,calcium 75-cdxh-xgoow acid 27 mg iron- 1 mg Tablet See Instructions, TAKE 1 TABLET BY MOUTH EVERY DAY, # 30 tablet, 3 Refills, Maintenance, 10/25/23 15:46:00 EDT, [id number], 30, TAKE 1 TABLET BY MOUTH EVERY DAY, 158, cm, 05/31/23 15:01:00 EST, Height, 61, kg, 12/31/22 12:13:00 EDT, Dry Weight PNV,calcium 87-jgqw-mlyyk acid 27 mg iron- 1 mg Tablet Take 1 tablet by mouth polyethylene glycol (GAVILAX) 17 gram/dose powder Take 17 g by mouth 2 (two) times daily DISSOLVE INTO WATER AND DRINK (Patient not taking: Reported on 10/19/2024) polyethylene glycol (MIRALAX) 17 gram packet MIX 16 PACKETS IN 64 OUNCES GATORADE AND DRINK OVER 4 6 HOURS, FOLLOWED BY 1 PACKET TWICE A DAY (Patient not taking: Reported on 10/19/2024) polyethylene glycol (MIRALAX) 17 gram/dose powder Mix 16 capfuls in 64 oz gatorade drink over 4 to 6 hours (Patient not taking: Reported on 10/19/2024) VITAMIN PLUS LOW IRON 27 mg iron- 1 mg Tablet Take 1 tablet by mouth daily pyridoxine, vitamin B6, (B-6) 100 MG tablet Take by mouth QUEtiapine (SEROQUEL XR) 50 mg Tablet Extended Release 24 hr Please see attached for detailed directions QUEtiapine (SEROQUEL) 100 MG tablet Take 100 mg by mouth nightly QUEtiapine (SEROQUEL) 25 MG tablet riboflavin, vitamin B2, 100 mg Tablet Take 400 mg by mouth daily riboflavin, vitamin B2, 100 mg Tablet Take by mouth riboflavin, vitamin B2, 100 mg Tablet 100 mg riboflavin, vitamin B2, 100 mg Tablet Take 100 mg by mouth risperiDONE (RISPERDAL) 0.25 MG tablet Please see attached for detailed directions risperiDONE (RISPERDAL) 0.25 MG tablet See Instructions, 1 tablet By Mouth qhs w/1mg tab for TDD of 1.25mg, # 30 tablet, Refills 0, Tot. Refills 0, Maintenance, 12/03/22 15:48:00 EDT, Instructions Replace Required Details, Route to Pharmacy Electronically, [facility]/pharmacy #[id number], Partial fill... risperiDONE (RISPERDAL) 0.5 MG tablet Take 0.5 mg by mouth daily risperiDONE (RISPERDAL) 1 MG tablet TAKE 1 TABLET BY MOUTH EVERYDAY AT BEDTIME risperiDONE (RISPERDAL) 1 MG tablet Take 1 mg by mouth rizatriptan (MAXALT) 10 MG tablet TAKE 1 TABLET AT HEADACHE ONSET, MAY REPEAT DOSE ONCE IN 2 HOURS NEEDED FOR MIGRAINE rizatriptan (MAXALT) 10 MG tablet See Instructions, PRN migraine, Special Instructions: 1 tab PO at headache onset may repeat dose once in 2 hours, Dispense Quantity: 12 tab, Refills: 0, Entered: 08/12/22 17:08:00 EST, [facility]/pharmacy #[id number] senna (SENOKOT) 8.6 mg tablet Take 2 tablets by mouth nightly SENNA 8.6 mg tablet TAKE 1 TABLET BY MOUTH NIGHTLY sennosides 15 mg Tablet, Chewable sertraline (ZOLOFT) 100 MG tablet Take 125 mg by mouth daily sertraline (ZOLOFT) 25 MG tablet sertraline (ZOLOFT) 25 MG tablet Take 50 mg by mouth sertraline (ZOLOFT) 50 MG tablet Take 100 mg by mouth daily SUMAtriptan (IMITREX) 25 MG tablet Take by mouth (Patient not taking: Reported on 10/19/2024) SUMAtriptan (IMITREX) 50 MG tablet TAKE 1 TABLET BY MOUTH AT ONSET OF HEADACHE. NOVEMBER REPEAT 1 TAB IN2 HOURS IF NEEDED. MAX 2/DAY 4/WEEK (Patient not taking: Reported on 10/19/2024) terazosin (HYTRIN) 1 MG capsule TAKE 1 MG (1 CAPSULE) AT BEDTIME FOR 90 DAYS traZODone (DESYREL) 50 MG tablet TAKE 1 TABLET BY MOUTH EVERY DAY AT BEDTIME FOR INSOMNIA traZODone (DESYREL) 50 MG tablet Take by mouth traZODone (DESYREL) 50 MG tablet Take 50 mg by mouth tretinoin (RETIN-A) 0.025 % cream Apply topically (Patient not taking: Reported on 10/19/2024) VALTOCO 15 mg/2 spray (7.5/0.1mL x 2) [place], Non-Aerosol Please see attached for detailed directions XULANE 150-35 mcg/24 hr 1 PATCH TOPICALLY EVERY WEEK,APPLY 1 PATCH WEEKLY FOR 3 WEEKS, REMOVE FOR 1WEEK, THEN REPEAT CYCLE (Patient not taking: Reported on 10/19/2024) zonisamide (ZONEGRAN) 100 MG capsule TAKE 300 MG = 3 CAPSULES BY MOUTH 1 TIME EACH DAY. zonisamide (ZONEGRAN) 50 MG capsule TAKE 1 CAP BY MOUTH DAILY FOR 1 WEEK, THEN 2 CAPS DAILY X1 WEEK, THEN 3 DAILY X1 WEEK, THEN 4 DAILY zonisamide (ZONEGRAN) 50 MG capsule Take 200 mg by mouth daily No facility-administered encounter medications on file as of 04/30/2025. There is no problem list on file for this patient. Past Medical History: Diagnosis Date Acid reflux Anxiety Central auditory processing disorder Cerebral palsy Chiari malformation type I Constipation Epilepsy History reviewed. No pertinent surgical history. No history on file. Family History Adopted: Yes Social History: Paola has no history on file for drug use. She has no history on file for alcohol use. She has no history on file for sexual activity. Social History Lives at home with Mom Siblings at home? Yes Social History Social History Narrative Not on file Review of Systems Constitutional: Negative for activity change and appetite change. HENT: Negative for congestion and nosebleeds. Eyes: Negative for discharge and itching. Respiratory: Negative for cough and shortness of breath. Cardiovascular: Negative for chest pain and leg swelling. Gastrointestinal: Positive for constipation. Negative for abdominal pain, nausea and vomiting. Endocrine: Negative for cold intolerance and heat intolerance. Genitourinary: Negative for difficulty urinating and dysuria. Musculoskeletal: Negative for joint swelling and neck pain. Skin: Negative for color change and rash. Allergic/Immunologic: Negative for food allergies and immunocompromised state. Neurological: Positive for seizures. Negative for dizziness and headaches. Hematological: Negative for adenopathy. Does not bruise/bleed easily. Psychiatric/Behavioral: Negative for agitation and confusion. All other systems reviewed and are negative. Objective: Wt Readings from Last 3 Encounters: 04/30/25 69.8 kg (153 lb 14.1 oz) 10/19/24 68.6 kg (151 lb 3.8 oz) 12/13/23 68.5 kg (151 lb 0.2 oz) Vital Signs: BP 103/69 (BP Location: Left arm, Patient Position: Sitting) Ht 153 cm (5' 0.24 ) Wt 69.8 kg (153 lb 14.1 oz) BMI 29.82 kg/m?? Physical Exam Constitutional: Appearance: She is well-developed. HENT: Head: Normocephalic and atraumatic. Eyes: Conjunctiva/sclera: Conjunctivae normal. Pupils: Pupils are equal, round, and reactive to light. Cardiovascular: Rate and Rhythm: Normal rate and regular rhythm. Pulmonary: Effort: Pulmonary effort is normal. Breath sounds: Normal breath sounds. Abdominal: General: Bowel sounds are normal. There is no distension. Palpations: Abdomen is soft. Tenderness: There is no abdominal tenderness. Musculoskeletal: General: Normal range of motion. Cervical back: Normal range of motion. Neurological: Mental Status: She is alert and oriented to person, place, and time. Assessment/Plan: Paola is a 19 year old female , with a history of cerebral palsy, Chiari I malformation, migraine, central auditory processing disorder, epilepsy, anxiety disorder, is being seen for follow-up for reflux and constipation. She was doing well until about a week ago when she had recurrence of abdominal pain, nausea and constipation. Advised her to proceed with a bowel cleanout. Optimize the dose of Linzess and senna. For reflux, continue famotidine. Paola voiced understanding and agreed with the plan. Patient Instructions 1. Start miralax 16 capfuls in 64 oz gatorade , drink over 4-6 hours for bowel cleanout 2. After cleanout Start Linzess 145 mcg once daily 3. Continue Senna 2 pills once daily at night 4. Follow up in 3 months It was a pleasure to see you today. Please do not hesitate to reach out if you have any questions or concerns that come up before your next scheduled appointment. For any urgent or after-hours concerns, our on- call team may be reached at [phone]. For non urgent questions, you can call our office at [phone] or contact via Mfuse. Medications will be sent to your pharmacy. Please call if you have any difficulty in obtaining the medication. Call atleast 7 to 10 days in advance for medication refill requests and any paperwork that needs to be completed/ filled. The natural progression and therapy of this diagnosis has been discussed with the patient and parent at length and they demonstrated good understanding of the discussed material by the end of our conversation. Written instructions were provided as appropriate through hand outs and/or patient instructions. Thank you for the consult. Please feel free to call with questions or concerns. Olga Terrell MD Disclaimer: This note was generated using voice recognition technology. Efforts are made to proofread the final product, however minor errors in copying machine repairer may be present. Please contact my officeshould any questions regarding content arise. documented in this encounter Plan of Treatment Upcoming Encounters Date Type Department Care Team (Late Contact Info) Description 08/14/2025 9:00 AM EST Office Visit [facility], [address] [place] [address] Olga Terrell MD [address] [place] [id number] documented as of this encounter Visit Diagnoses Diagnosis Constipation, unspecified constipation type- Primary documented in this encounter Care Teams Managing Editor Relationship Specialty Start Date End Date Jennifer Weathers MD [address] [place] [id number] PCP - General 08/15/19 documented as of this encounter
--- NOTE | 2025-05-01 14:34 | MHC.OFFVIS ---
Intake Visit Reasons: 6M follow up Intake Note: Patient is present for 6 MO FOLLOW UP Urology Medication:VITAMIN B6,,TERAZOSIN Antibiotic Allergy:NONE Blood Thinner:NONE Hazardous Waste Management Specialist Required: No Accompanied by: Self / Same As Patient Allergies cat dander Allergy (Mild, Verified 05/21/25 16:49) Watery Eye feathers Allergy (Mild, Verified 05/21/25 16:49) Watery Eye mold Allergy (Mild, Verified 05/21/25 16:49) Watery Eye acetaminophen Allergy (Unknown, Verified 05/21/25 16:49) Hives tree and shrub pollen Allergy (Unknown, Verified 05/21/25 16:49) Watery Eye cockroach Allergy (Mild, Uncoded 05/21/25 16:49) Watery Eye dust mites Allergy (Mild, Uncoded 05/21/25 16:49) Watery Eye Mouse Allergy (Mild, Uncoded 05/21/25 16:49) Itchy Eyes environmental Allergy (Unknown, Uncoded 05/21/25 16:49) Watery Eye lemon, [place], citrus Allergy (Unknown, Uncoded 05/21/25 16:49) rash red apples, peaches Allergy (Unknown, Uncoded 05/21/25 16:49) hives HPI Comments Details: Paola is a pleasant female. She is a patient of Dr. Weathers. She seen for the following urologic issues - neurogenic bladder - nephrolithiasis - enuresis Telemedicine Evaluation 15 min Consultation [facility] [employer] [facility]ain Video Six-month follow-up Continues with terazosin low-dose for bladder emptying Does find that uses risperidone with sertraline each evening Has bladder leakage when uses trazodone Will act to reduce fluid intake after 06:00 o'clock Also discussion of holding trazodone in order to sense urinary urge Does state that bowel habits are improved with bowel motion every day to every other day on combination MiraLax and senna Background of cerebral palsy with epilepsy and schizoaffective disorder with autism On significant number of medications for seizure control Nephrolithiasis Imaging 02/05 4 mm left upper pole - 06/08 US with 4mm left stone 24 hour urine - 02/05 good volume, low citrate Encouraged lemon supplementation Enuresis Persistent Secondary to antiseizure medications Failure of both desmopressin and Myrbetriq Behavioral modification regarding fluid intake is mainstay of management Neurogenic bladder Wears liners during the day Reports reasonable control Poor response to oxybutynin Does manage GI constipation with MiraLax PFSH Medical History Frequent UTI Kidney stones Schizoaffective disorder Autism Anxiety OCD (obsessive compulsive disorder) Intellectual disability Migraines Chiari malformation type I Central auditory processing disorder Bladder incontinence Cerebral palsy Seizure disorder Surgical History No pertinent past surgical history Family History Mother Substance abuse Depression Anxiety Alcohol abuse Cancer Kidney disease Seizures Asthma ADHD Father Kidney disease ADHD Social History Household Members: Spouse and Other Household Members Other:: w/spouse in [place] w/e's & vacations o/w in [facility] w/ mom & sibs/foster sib Alcohol intake: never Patient Tobacco Use Status: Never used Tobacco Cognitive needs: No Hearing needs: No Vision needs: No Review of Systems Const All systems reviewed & are unremarkable except as noted in HPI and below Reports no additional complaints Resp Reports no additional complaints GI Reports no additional complaints Reports as per HPI Musc Reports no additional complaints Physical Exam Telemedicine evaluation Appropriate responses Regular breathing rate and rhythm HEENT Head: Yes normal to inspection Ears: hearing grossly normal bilaterally Eyes General: appearance normal, both eyes and all related structures Neck Neck: Yes normal visual inspection Chest Chest palpation & inspection: normal inspection of the chest Resp Effort & Inspection: normal respiratory effort and able to speak in complete sentences Telehealth Telehealth Telehealth Platform: [facility] Location of provider rendering services: practice address Location of patient: address on file Patient Identification confirmed using: Name, : Yes Telehealth method: video Patient verbally consented to treatment: Yes Patient verbally consented to billing insurance company: Yes Patient informed of any privacy concerns related to visit: Yes Assessment & Plan Assessment & Plan (1) Bladder incontinence: Comment: Response to terazosin 1 mg Code(s): R32 - Unspecified urinary incontinence Category: Medical Qualifiers: Urinary Incontinence type: functional incontinence Qualified Code(s): R39.81 - Functional urinary incontinence (2) Kidney stones: Comment: 06/08 persistent 4mm left stone Code(s): N20.0 - Calculus of kidney Category: Medical Plan Six-month follow-up renal ultrasound Orders: Orders US renal BI 6 Months N20.0 - Calculus of kidney Medications: Refilled terazosin 1 mg PO BEDTIME 90 caps 1RF 90 days R39.12 - Poor urinary stream Patient Instructions: This note is constructed using voice recognition software. While every effort has been made to ensure accuracy champion of sustainable design errors may have been included. Imaging studies, laboratory and physical exam results were discussed and reviewed in detail. No major barriers to patient understanding were identified. An opportunity to ask questions regarding the treatment plan was provided. All questions were answered. The patient expressed understanding and agreement with the above treatment plan. The patient is aware they should contact our office by phone for worsening of their current condition or the appearance of new urologic symptoms. Compliance is encouraged with any medications and followup testing that is ordered. It is a privilege to participate in the urologic care of your patient. If you have any questions or concerns regarding treatment for the above conditions, or other urologic issues, please do not hesitate to contact me. The office telephone contact is [phone]. Sincerely, Dr Iron Veliz MD, [facility] - Urology Compassionate Specialist Care for the Genitourinary System Coding Level of Care Code Tele Est Pt Level 3 (66022) Add On Problem Visit Only Diagnoses Functional urinary incontinence R39.81 Urinary Incontinence type: functional incontinence Kidney stones N20.0
--- OUTSIDE RECORDS SUMMARY | 2025-05-01 18:16 | XMS_ITS | Clinical Summary ---
Author Organization [facility] Address [address] [place] [address] Care Team Providers Care Rn Bsn Name Role Phone Jennifer Weathers MD Primary Care Provider [phone] Source Comments Please note that some or [...] so, obtain the minor's consent prior to disclosure.[facility] Allergies Active Allergy Reactions Criticality Noted Date [...] 12/23/2020 Cat Hair Standardized Allergenic Extract 12/23/2020 [place] And Derivatives Rash Low 10/05/2018 Contact dermatitis Codeine 12/12/2019 Gluten 12/12/2019 [place] 03/07/2023 Mold 08/15/2017 Reaction Type from PowerChart: Allergy; Multivit With Min-Folic Acid 12/23/2020 red apples, peaches, citrus fruits Nutritional Supplement-Fiber 10/19/2021 [place] 10/19/2021 Other reaction(s): Anaphylactic reaction to food, Pineapple anaphylaxis [place]k (Prunus Persica) Hives,Other (See Comments) 04/28/2017 Fresh [...] INTO BOTH EYES 2 TIMES DAILY NEEDED 01/07/20 20 Active lamoTRIGine (LAMICTAL) 25 MG disintegrating [...] tab, Refills: 0, Entered: 08/12/22 17:08:00 EST, [facility]/pharmacy #[id number] 08/12/19 Active clonazePAM (KLONOPIN) 2 MG disintegrating tablet 09/23/19 Active VALTOCO 15 mg/2 spray (7.5/0.1mL x 2) Mallory, Non-Aerosol Please see attached for detailed directions 12/25/19 Active hydrOXYzine (ATARAX) 10 MG tablet See Instructions, PRN as needed for anxiety, 1 tablet By Mouth PRN for anxiety. Please provide an extra labeled bottle for school, # 30 tablet, 0 Refills, Maintenance, 11/05/22 14:30:00 EDT, [facility]/pharmacy #[id number], 150, cm, 10/21/22 16:00:00 EDT, [place]... [...] Active lamoTRIgine (LAMICTAL) 25 MG tablet 01/11/20 23 Active magnesium gluconate (MAGONATE) 27.5 mg [...] Replace Required Details, Route to Pharmacy Electronically, [facility]/pharmacy #[id number], Partial fill... 12/04/19 23 Active risperiDONE [...] into the muscle 06/01/20 24 Active PNV,calcium 98-ylri-hzrak acid 27 mg iron- 1 mg Tablet See Instructions, TAKE 1 TABLET BY MOUTH EVERY DAY, # 30 tablet, 3 Refills, Maintenance, 10/25/23 15:46:00 EDT, [id number], 30, TAKE 1 TABLET BY MOUTH EVERY DAY, 158, cm, 05/31/23 15:01:00 EST, Height, 61, kg, 12/31/22 12:13:00 EDT, Dry Weight 10/25/19 24 Active PNV,calcium 58-vlud-bjodv acid 27 mg iron- 1 mg Tablet [...] daily 60 tablet 6 10/20/19 25 Active PNV no.95/ferrous fum/folic ac ( MULTIVITAMINS ORAL) Take by mouth 03/06/20 25 Active magnesium gluconate (MAGONATE) 27.5 mg magne- sium (500 mg) tablet Take 27.5 mg by mouth 03/06/20 25 Active lamoTRIgine (LAMICTAL) 200 MG tablet Take 200 mg by mouth 01/16/20 25 Active ibuprofen (MOTRIN) 600 MG tablet 1 TABLET EVERY 6 HOURS NEEDED FOR PAIN 12/20/19 25 Active doxycycline (ADOXA) 100 mg Tablet 1 TABLET TWICE A DAY 12/20/19 25 Active cephalexin (KEFLEX) 500 MG capsule TAKE 1 CAPSULE BY MOUTH FOUR TIMES A DAY 12/20/19 Active ARIPiprazole (ABILIFY) 2 MG tablet Take 2 mg by mouth in the morning. 04/24/20 25 Active zonisamide (ZONEGRAN) 100 MG capsule TAKE 300 MG = 3 CAPSULES BY MOUTH 1 TIME EACH DAY. Active linaCLOtide (LINZESS) 145 mcg Capsule capsuleIndications :Constipation, unspecified constipation type Take 1 capsule (145 mcg) by mouth in the morning. 30 capsule 6 04/30/20 25 025 Active senna (SENOKOT) 8.6 mg tabletIndications: Constipation, unspecified constipation type Take 2 tablets by mouth nightly 60 tablet 6 04/30/20 25 025 Active Active Problems No known active problems Encounters Date Type Department Care Team Description 04/30/2025 1:00 PM EDT Office Visit [facility] Gastroenterology, [place] [address] [place] [address] Olga Terrell MD Constipation, unspecified constipation type (Primary Dx) 04/29/2025 Telephone [facility] Gastroenterology, [address] [phone] Olga Terrell MD from Last 3 Months [...] Pressure 103/69 04/30/2025 12:08 PM EDT Pulse 81 10/19/2024 11:43 AM EDT Temperature - - Respiratory Rate - - Oxygen Saturation - - Inhaled Oxygen Concentration - - Weight 69.8 kg (153 lb 14.1 oz) 025 12:08 PM EDT Height 153 cm (5' 0.24 ) 04/30/2025 12: 08 PM EDT Body Mass Index 29.82 04/30/2025 12:08 PM EDT Plan of Treatment Upcoming Encounters Date Type Department Care Team (Late st Contact Info) Description 08/14/2025 9:00 AM EST Office Visit [facility] Gastroenterology, [place] [address] [place] [address] Olga Terrell MD [address] [place] [phone] Health Maintenance Due Date Last Done Comments DTaP/TDAP/TD VACCINES (1 - Tdap) 2010 ADOLESCENT HIV SCREENING 2016 COVID-19 Vaccine ( - 2023-2 5 season) 2025 INFLUENZA (#1) 2025 NIRSEVIMAB VACCINES UNDER 8 MONTHS Aged Out No longer eligible based on patient's age to complete this topic Insurance [facility] [employer] Care Teams Rn Bsn Relationship Specialty Start Date End Date Jennifer Weathers MD [address] [place] [address] PCP - General 08/15/19
--- OUTSIDE RECORDS SUMMARY | 2025-05-01 18:16 | XMS_ITS | Encounter Summary ---
Author Organization [facility] Address [address] [place] [address] Care Team Providers Care Vp Clinical Research Name Role Phone Jennifer Weathers MD Primary Care Provider [phone] Reason for Visit * Reason Comments Medication Refill Encounter Details Date Type Department Care Team ([facility] st Contact Info) Description 08/09/2021 Refill [facility] Gastroenterology[address] [phone] Olga Terrell MD [address] [place] [phone] Constipation, unspecified Social History Tobacco Use Types [...] Description 08/14/2025 9:00 AM EST Office Visit [facility] Gastroenterology, [place] [address] [place] [address] Olga Terrell MD [address] [place] [phone] documented as of this encounter Visit Diagnoses Diagnosis Constipation, unspecified documented in this encounter Care Teams Vp Clinical Research Relationship Specialty Start Date End Date Jennifer Weathers MD [address] [place] [address] PCP - General 08/15/19 documented as of this encounter
--- OUTSIDE RECORDS SUMMARY | 2025-05-01 18:16 | XMS_ITS | Encounter Summary ---
Author Organization [address] [address] Care Team Providers Care Machine Tack Puller Name Role Phone Jennifer Weathers MD Primary Care Provider [phone] Reason for Visit * Reason Comments Medication Refill Encounter Details Date Type Department Care Team (Late st Contact Info) Description 01/12/[address] [phone] Olga Terrell MD [address] [place] [address] Constipation, unspecified Social History Tobacco Use Types [...] Description 08/14/2025 9:00 AM EST [facility] [address] [place] [address] Olga Terrell MD [address] [place] [address] documented as of this encounter Visit Diagnoses Diagnosis Constipation, unspecified documented in this encounter Care Teams Machine Tack Puller Relationship Specialty Start Date End Date Jennifer Weathers MD [address] [place] [address] PCP - General 08/15/19 documented as of this encounter
--- OUTSIDE RECORDS SUMMARY | 2025-05-01 18:16 | XMS_ITS | Encounter Summary ---
Author Organization [facility] Address [address] [place] [address] Care Team Providers Care Hand Cigar Making Supervisor Name Role Phone Jennifer Weathers MD Primary Care Provider [phone] Reason for Visit * Reason Comments Medication Refill Encounter Details Date Type Department Care Team (Late st Contact Info) Description 02/29/[address] [phone] Olga Terrell MD [address] [place] [address] Constipation, unspecified Social History Tobacco Use Types [...] Description 08/14/2025 9:00 AM EST [facility] [address] [place] [address] Olga Terrell MD [address] [place] [phone] documented as of this encounter Visit Diagnoses Diagnosis Constipation, unspecified documented in this encounter Care Teams Hand Cigar Making Supervisor Relationship Specialty Start Date End Date Jennifer Weathers MD [address] [place] [address] PCP - General 08/15/19 documented as of this encounter
--- OUTSIDE RECORDS SUMMARY | 2025-05-01 18:16 | XMS_ITS | Encounter Summary ---
Author Organization [address] [address] Care Team Providers Care Education Instructor Name Role Phone Jennifer Weathers MD Primary Care Provider [phone] Reason for Visit * Reason Comments Medication Refill Encounter Details Date Type Department Care Team (Late st Contact Info) Description 05/28/[address] [phone] Olga Terrell MD [address] [place] [phone] Constipation, unspecified Social History Tobacco Use Types Packs/Day Years Used Date Smoking Tobacco: Never Smokeless Tobacco: Never Comments No Sex and Gender Information Value Date Recorded Sex Assigned at Not on file Legal Sex Female 2:11 PM EST Gender Identity Not on file Sexual Orientation Not on file documented as of this encounter Miscellaneous Notes * Telephone Encounter - Joaquina Jesscia RN - 05/28/2020 2:21 PM EST Dose correct Last seen 05-26-2020- tele med No pending appts documented in this encounter Plan of Treatment Upcoming Encounters Date Type Department Care Team (Late st Contact Info) Description 08/14/2025 9:00 AM EST [facility] [address] [place] [address] Olga Terrell MD [address] [place] [phone] documented as of this encounter Visit Diagnoses Diagnosis Constipation, unspecified documented in this encounter Care Teams Education Instructor Relationship Specialty Start Date End Date Jennifer Weathers MD [address] [place] [address] PCP - General 08/15/19 documented as of this encounter
--- OUTSIDE RECORDS SUMMARY | 2025-05-01 18:16 | XMS_ITS | Encounter Summary ---
Author Organization [facility] Address [address] [place] [address] Care Team Providers Care Hospitality Job Titles Name Role Phone Jennifer Weathers MD Primary Care Provider [phone] Reason for Visit * Reason Comments Medication Refill Encounter Details Date Type Department Care Team (Late st Contact Info) Description 12/03/2019 Refill [facility] Gastroenterology, [place] [address] [place] [address] Olga Terrell MD [address] [place] [address] Constipation, unspecified constipation type Social History Tobacco [...] Description 08/14/2025 9:00 AM EST Office Visit [facility] Gastroenterology, [place] [address] [place] [address] Olga Terrell MD [address] [place] [address] documented as of this encounter Visit Diagnoses Diagnosis Constipation, unspecified constipation type documented in this encounter Care Teams Hospitality Job Titles Relationship Specialty Start Date End Date Jennifer Weathers MD [address] [place] [address] PCP - General 08/15/19 documented as of this encounter
--- OUTSIDE RECORDS SUMMARY | 2025-05-01 18:16 | XMS_ITS | Encounter Summary ---
Author Organization [address] [address] Care Team Providers Care Chimney Sweeper Name Role Phone Jennifer Weathers MD Primary Care Provider [phone] Reason for Visit * Reason Comments Medication Refill Encounter Details Date Type Department Care Team (Late st Contact Info) Description 03/08/[address] [phone] Olga Terrell MD [address] [place] [address] Gastro-esophageal reflux disease without esophagitis Social History [...] Description 08/14/2025 9:00 AM EST Office Visit [facility] Gastroenterology, [place] [address] [place] [address] Olga Terrell MD [address] [place] [address] documented as of this encounter Visit Diagnoses Diagnosis Gastro-esophageal reflux disease without esophagitis documented in this encounter Care Teams Chimney Sweeper Relationship Specialty Start Date End Date Jennifer Weathers MD [address] [place] [address] PCP - General 08/15/19 documented as of this encounter
--- OUTSIDE RECORDS SUMMARY | 2025-05-01 18:16 | XMS_ITS | Encounter Summary ---
Author Organization [facility] Address [address] [place] [address] Phone Care Team Providers Care Set Up Technician Name Role Phone Jasiel Jennifer Primary Care Provider Encounter Details Date Type Department Care Team (Late st Contact Info) Description 05/28/2015 Conversion Encounter [facility] - [address] [address] Social History Tobacco Use Types Packs/Day Years [...] on filedocumented in this encounter Care Teams Set Up Technician Relationship Specialty Start Date End Date Jennifer Weathers [address] [place] [address] PCP - General 11/23/17 documented as of this encounter
--- OUTSIDE RECORDS SUMMARY | 2025-05-01 18:16 | XMS_ITS | Clinical Summary ---
Author Organization [facility] Address [address] [place] [address] Phone Care Team Providers Care Flight Software Test Engineer Name Role Phone Jennifer Weathers Primary Care Provider [phone] Immunizations Immunization Administration Dates Next Due DTaP [...] (#1) 2025 05/28/2015 COVID-19 Vaccine (1 - 2024- season) 2025 DTaP,Tdap,and Td Vaccines (6 - [...] age to complete this topic Care Teams Flight Software Test Engineer Relationship Specialty Start Date End Date Jennifer Weathers [address] [place] [address] PCP - General 11/23/17
--- OUTSIDE RECORDS SUMMARY | 2025-05-01 18:16 | XMS_ITS | Encounter Summary ---
[place] [address] Care Team Providers Care Ophthalmology Assistant Name Role Phone Jennifer Weathers MD Primary Care Provider [phone] Reason for Visit * Reason Comments Medication Refill Encounter Details Date Type Department Care Team (Late st Contact Info) Description 04/02/[address] [phone] Olga Terrell MD [address] [place] [phone] Gastro-esophageal reflux disease without esophagitis Social History [...] Description 08/14/2025 9:00 AM EST [facility] [place] [address] [place] [address] Olga Terrell MD [address] [place] [address] documented as of this encounter Visit Diagnoses Diagnosis Gastro-esophageal reflux disease without esophagitis documented in this encounter Care Teams Ophthalmology Assistant Relationship Specialty Start Date End Date Jennifer Weathers MD [address] [place] [address] PCP - General 08/15/19 documented as of this encounter
--- OUTSIDE RECORDS SUMMARY | 2025-05-01 18:16 | XMS_ITS | Encounter Summary ---
Author Organization [address] [address] Care Team Providers Care Accounts Receivable Executive Name Role Phone Jennifer Weathers MD Primary Care Provider [phone] Reason for Visit * Reason Comments Medication Refill Encounter Details Date Type Department Care Team (Late Contact Info) Description 07/21/2022 Refill [facility] [address] [address] Olga Terrell MD [address] [place] [address] Constipation, unspecified constipation type; Constipation, unspecified Social [...] Description 08/14/2025 9:00 AM EST Office Visit [facility] Gastroenterology, [place] [address] [place] [address] Olga Terrell MD [address] [place] [address] documented as of this encounter Visit Diagnoses Diagnosis Constipation, unspecified constipation type documented in this encounter Care Teams Accounts Receivable Executive Relationship Specialty Start Date End Date Jennifer Weathers MD [address] [place] [address] PCP - General 08/15/19 documented as of this encounter
--- OUTSIDE RECORDS SUMMARY | 2025-05-01 18:16 | XMS_ITS | Encounter Summary ---
Author Organization [facility] Address [address] [place] [address] Care Team Providers Care Pin Inserter Name Role Phone Jennifer Weathers MD Primary Care Provider [phone] Reason for Visit * Reason Comments Medication Refill Encounter Details Date Type Department Care Team (Late st Contact Info) Description 02/10/2021 Refill [facility]astroenter[address] [address] Olga Terrell MD [address] [place] [phone] Gastro-esophageal reflux disease without esophagitis Social History [...] Description 08/14/2025 9:00 AM EST Office Visit [facility] Gastroenterology[address] [address] Olga Terrell MD [address] [place] [address] documented as of this encounter Visit Diagnoses Diagnosis Gastro-esophageal reflux disease without esophagitis documented in this encounter Care Teams Pin Inserter Relationship Specialty Start Date End Date Jennifer Weathers MD [address] [place] [address] PCP - General 08/15/19 documented as of this encounter
--- OUTSIDE RECORDS SUMMARY | 2025-05-01 18:16 | XMS_ITS | Encounter Summary ---
Author Organization [facility] Address [address] [place] [address] Care Team Providers Care Ramp Lead Name Role Phone Jennifer Weathers MD Primary Care Provider [phone] Reason for Visit * Reason Comments Medication Refill Encounter Details Date Type Department Care Team (Late Contact Info) Description 01/01/2020 Refill [facility] Gastroenterology[address] [phone] Olga Terrell MD [address] [place] [address] Gastroesophageal reflux disease, esophagitis presence not specified [...] a follow up appt. Will send to [facility] to book Weight: 54.7 kg Allergies: reviewed Current dose: Omeprazole 20 mg - 1 cap daily. Spoke with mom and she had to go back on the omeprazole due to having symptoms of reflux again. documented in this encounter Plan of Treatment Upcoming Encounters Date Type Department Care Team (Late Contact Info) Description 08/14/2025 9:00 AM EST Office Visit [facility]ology, [place] [address] [place] [address] Olga Terrell MD [address] [place] [address] documented as of this encounter Visit Diagnoses Diagnosis Gastroesophageal reflux disease, esophagitis presence not specified documented in this encounter Care Teams Ramp Lead Relationship Specialty Start Date End Date Jennifer Weathers MD [address] [place] [address] PCP - General 08/15/19 documented as of this encounter
--- OUTSIDE RECORDS SUMMARY | 2025-05-01 18:16 | XMS_ITS | Encounter Summary ---
[place] [address] Care Team Providers Care Dress Shoe Inspector Name Role Phone Jennifer Weathers MD Primary Care Provider [phone] Reason for Visit * Reason Comments Medication Refill Encounter Details Date Type Department Care Team (Late Contact Info) Description 02/25/2022 Refill [facility] Gastroenterology[address] [phone] Olga Terrell MD [address] [place] [address] Gastro-esophageal reflux disease without esophagitis; Constipation, unspecified [...] Description 08/14/2025 9:00 AM EST Office Visit [facility], [place] [address] [place] [address] Olga Terrell MD [address] [place] [address] documented as of this encounter Visit Diagnoses Diagnosis Gastro-esophageal reflux disease without esophagitis Constipation, unspecified documented in this encounter Care Teams Dress Shoe Inspector Relationship Specialty Start Date End Date Jennifer Weathers MD [address] [place] [address] PCP - General 08/15/19 documented as of this encounter
--- OUTSIDE RECORDS SUMMARY | 2025-05-01 18:16 | XMS_ITS | Encounter Summary ---
Author Organization [facility] Address [address] [place] [address] Care Team Providers Care Color Drum Worker Name Role Phone Jennifer Weathers MD Primary Care Provider [phone] Encounter Details Date Type Department Care Team ([facility] st Contact Info) Description 04/29/2025 Telephone [facility] Gastroenterology[address] [phone] Olga Terrell MD [address] [place], [place] [phone] Social History Tobacco Use Types Packs/Day Years Used Date Smoking Tobacco: Never Smokeless Tobacco: Never Comments No Sex and Gender Information Value Date Recorded Sex Assigned at Not on file Legal Sex Female 2:11 PM EST Gender Identity Not on file Sexual Orientation Not on file documented as of this encounter Miscellaneous Notes * Telephone Encounter - Yue Boo RN - 04/29/2025 1:15 PM EDT Freelance Designer spoke with Paola and she reports she has been having abdominal discomfort and not stooling asoften. Paola reports she thought she was on Linzess 145 mcg daily but she notice that the script was for linzess 72mcg daily. Freelance Designer advised Paola according to the last clinical note on 10/19/24 MD Terrell stated you were on Linzess 72 mcg daily and famotidine 20 mg twice daily. Paola reports she has been having a lot of seizure activity so her memory could be off. Last appt was on 10/19/24. Freelance Designer booked Paola for 04/30/25 at 1pm with MD Terrell. FYI * Telephone Encounter - Mari Urbina - 04/29/2025 12:20 PM EDT Provider: Name of Caller: Patient Best call back number: [phone] Reason for call: pt called in has been having abd pain or the past few days and is worried. Asks for a call back for next steps. documented in this encounter Plan of Treatment Upcoming Encounters Date Type Department Care Team (Late st Contact Info) Description 08/14/2025 9:00 AM EST Office Visit [facility], [place] [address] [place] [address] Olga Terrell MD [address] [place] [address] documented as of this encounter Visit Diagnoses Not on filedocumented in this encounter Care Teams Color Drum Worker Relationship Specialty Start Date End Date Jennifer Weathers MD [address] [place] [address] PCP - General 08/15/19 documented as of this encounter
--- OUTSIDE RECORDS SUMMARY | 2025-05-01 18:16 | XMS_ITS | Encounter Summary ---
Author Organization [facility] Address [address] [place] [address] Care Team Providers Care Applied Exercise Physiologist Name Role Phone Jennifer Weathers MD Primary Care Provider [phone] Reason for Visit * Reason Comments Medication Refill Encounter Details Date Type Department Care Team ([facility] st Contact Info) Description 11/28/2019 Refill [facility] Gastroenterology[address] [phone] Olga Terrell MD [address] [place] [address] Constipation, unspecified constipation type Social History Tobacco [...] stated she was not on the dulcolax Parachute Repairer called mom and she stated they are NOT on Dulcolax. Refuse med please * Telephone Encounter - Joaquina Jessica RN - 11/28/2019 9:25 AM EDT Per chart not taking? documented in this encounter Plan of Treatment Upcoming Encounters Date Type Department Care Team (Late st Contact Info) Description 08/14/2025 9:00 AM EST Office Visit [facility], [place] [address] [place] [address] Olga Terrell MD [address] [place] [address] documented as of this encounter Visit Diagnoses Diagnosis Constipation, unspecified constipation type documented in this encounter Care Teams Applied Exercise Physiologist Relationship Specialty Start Date End Date Jennifer Weathers MD [address] [place] [address] PCP - General 08/15/19 documented as of this encounter
--- OUTSIDE RECORDS SUMMARY | 2025-05-01 18:16 | XMS_ITS | Encounter Summary ---
Author Organization [facility] Address [address] [phone] Care Team Providers Care Biometrics Technician Name Role Phone Jennifer Weathers MD Primary Care Provider [phone] Reason for Visit * Reason Comments Medication Refill Encounter Details Date Type Department Care Team (Late st Contact Info) Description 05/18/2020 Refill [facility] Gastroenterology, [place] [address] [place] [address] Olga Terrell MD [address] [place] [address] Poor appetite Social History Tobacco Use Types [...] Description 08/14/2025 9:00 AM EST Office Visit [facility], [place] [address] [place] [address] Olga Terrell MD [address] [place] [address] documented as of this encounter Visit Diagnoses Diagnosis Poor appetite Anorexia documented in this encounter Care Teams Biometrics Technician Relationship Specialty Start Date End Date Jennifer Weathers MD [address] [place] [address] PCP - General 08/15/19 documented as of this encounter
--- OUTSIDE RECORDS SUMMARY | 2025-05-01 18:16 | XMS_ITS | Encounter Summary ---
Author Organization [facility] Address [address] [place] [address] Care Team Providers Care Instrumentation And Controls Designer Name Role Phone Jennifer Weathers MD Primary Care Provider [phone] Reason for Visit * Reason Comments Medication Refill Encounter Details Date Type Department Care Team ([facility] st Contact Info) Description 04/26/2021 Refill [facility] Gastroenterology[address] [phone] Katya Arthur MD [address] [place] [address] Constipation, unspecified Social History Tobacco Use Types [...] Office Visit [facility], [place] [address] [place] [address] Olga Terrell MD [address] [place] [address] documented as of this encounter Visit Diagnoses Diagnosis Constipation, unspecified documented in this encounter Care Teams Instrumentation And Controls Designer Relationship Specialty Start Date End Date Jennifer Weathers MD [address] [place] [address] PCP - General 08/15/19 documented as of this encounter
--- OUTSIDE RECORDS SUMMARY | 2025-05-01 18:16 | XMS_ITS | Encounter Summary ---
[place] [address] Care Team Providers Care Spring Encaser Name Role Phone Jennifer Weathers MD Primary Care Provider [phone] Reason for Visit * Reason Comments Medication Refill Encounter Details Date Type Department Care Team (Late Contact Info) Description 03/28/2020 Refill [facility] Gastroenterology[address] [address] Olga Terrell MD [address] [place] [address] Poor appetite Social History Tobacco Use Types [...] Description 08/14/2025 9:00 AM EST Office Visit [facility] Gastroenterology[address] [address] Olga Terrell MD [address] [place] [address] documented as of this encounter Visit Diagnoses Diagnosis Poor appetite Anorexia documented in this encounter Care Teams Spring Encaser Relationship Specialty Start Date End Date Jennifer Weathers MD [address] [place] [address] PCP - General 08/15/19 documented as of this encounter
--- OUTSIDE RECORDS SUMMARY | 2025-05-01 18:16 | XMS_ITS | Encounter Summary ---
[place] [address] Care Team Providers Care Laboratory Apparatus Glass Blower Name Role Phone Jennifer Weathers MD Primary Care Provider [phone] Reason for Visit * Reason Comments Medication Refill Encounter Details Date Type Department Care Team (Late st Contact Info) Description 06/21/[address] [phone] Olga Terrell MD [address] [place] [phone] Gastro-esophageal reflux disease without esophagitis Social History [...] Description 08/14/2025 9:00 AM EST Office [facility] [address] [place] [address] Olga Terrell MD [address] [place] [address] documented as of this encounter Visit Diagnoses Diagnosis Gastro-esophageal reflux disease without esophagitis documented in this encounter Care Teams Laboratory Apparatus Glass Blower Relationship Specialty Start Date End Date Jennifer Weathers MD [address] [place] [address] PCP - General 08/15/19 documented as of this encounter
--- OUTSIDE RECORDS SUMMARY | 2025-05-01 18:16 | XMS_ITS | Encounter Summary ---
Author Organization [facility] Address [address] [place] [address] Care Team Providers Care Nautical Instrument Mechanic Name Role Phone Jennifer Weathers MD Primary Care Provider [phone] Reason for Visit * Reason Comments Medication Refill Encounter Details Date Type Department Care Team (Late Contact Info) Description 11/02/[address] [phone] Olga Terrell MD [address] [place] [address] Constipation, unspecified; Gastro-esophageal reflux disease without esophagitis [...] Office Visit [facility], [place] [address] [place] [address] Olga Terrell MD [address] [place] [address] documented as of this encounter Visit Diagnoses Diagnosis Constipation, unspecified Gastro-esophageal reflux disease without esophagitis documented in this encounter Care Teams Nautical Instrument Mechanic Relationship Specialty Start Date End Date Jennifer Weathers MD [address] [place] [address] PCP - General 08/15/19 documented as of this encounter
--- OUTSIDE RECORDS SUMMARY | 2025-05-01 18:16 | XMS_ITS | Encounter Summary ---
Author Organization [address] [address] Care Team Providers Care Field Assistant Name Role Phone Jennifer Weathers MD Primary Care Provider [phone] Reason for Visit * Reason Comments Medication Refill Encounter Details Date Type Department Care Team (Late st Contact Info) Description 09/16/[address] [phone] Olga Terrell MD [address] [place] [address] Constipation, unspecified Social History Tobacco Use Types [...] Description 08/14/2025 9:00 AM EST [facility] [address] [place] [address] Olga Terrell MD [address] [place] [address] documented as of this encounter Visit Diagnoses Diagnosis Constipation, unspecified documented in this encounter Care Teams Field Assistant Relationship Specialty Start Date End Date Jennifer Weathers MD [address] [place] [address] PCP - General 08/15/19 documented as of this encounter
--- OUTSIDE RECORDS SUMMARY | 2025-05-01 18:16 | XMS_ITS | Encounter Summary ---
Author Organization [facility] Address [address] [place] [address] Care Team Providers Care Kiln Worker Name Role Phone Jennifer Weathers MD Primary Care Provider [phone] Reason for Visit * Reason Comments Medication Refill Encounter Details Date Type Department Care Team (Late st Contact Info) Description 10/13/2020 Refill [facility] Gastroenterology, [place] [address] [place] [address] Olga Terrell MD [address] [place] [address] Gastro-esophageal reflux disease without esophagitis Social History [...] Description 08/14/2025 9:00 AM EST Office Visit [facility], [place] [address] [place] [address] Olga Terrell MD [address] [place] [address] documented as of this encounter Visit Diagnoses Diagnosis Gastro-esophageal reflux disease without esophagitis documented in this encounter Care Teams Kiln Worker Relationship Specialty Start Date End Date Jennifer Weathers MD [address] [place] [address] PCP - General 08/15/19 documented as of this encounter
== END 2025-05-01 16:24 | disposition home or self-care (01) ==
LOC: HO.HUSH 14:34
PROVIDERS: PCP Pediatrics; Visit Provider Urology
DX: R39.81 Functional urinary incontinence (principal); N20.0 Calculus of kidney
CPT/HCPCS: 99213

== ENCOUNTER 2025-05-21 16:47 | Outpatient (AMB) | payer OTHER, SELFPAY ==
--- NOTE | 2025-05-21 16:48 | MHC.OFVISPED ---
Pediatric Intake Visit Reasons: [phone] anemia and VWD Pulverizing And Sifting Operator Required: No Allergies cat dander Allergy (Mild, Verified 05/21/25 16:49) Watery Eye feathers Allergy (Mild, Verified 05/21/25 16:49) Watery Eye mold Allergy (Mild, Verified 05/21/25 16:49) Watery Eye acetaminophen Allergy (Unknown, Verified 05/21/25 16:49) Hives tree and shrub pollen Allergy (Unknown, Verified 05/21/25 16:49) Watery Eye cockroach Allergy (Mild, Uncoded 05/21/25 16:49) Watery Eye dust mites Allergy (Mild, Uncoded 05/21/25 16:49) Watery Eye Mouse Allergy (Mild, Uncoded 05/21/25 16:49) Itchy Eyes environmental Allergy (Unknown, Uncoded 05/21/25 16:49) Watery Eye lemon, lytton, citrus Allergy (Unknown, Uncoded 05/21/25 16:49) rash red apples, peaches Allergy (Unknown, Uncoded 05/21/25 16:49) hives Medication List - Last Reconciled 05/21/25 by Jennifer Weathers MD aripiprazole 2 mg PO DAILY clobazam (Onfi) 10 mg orally take 2 tablets every morning and 3 tablets every evening; clonazepam 2 mg PO ONCE PRN diazepam (Valtoco) 15 mg intranasal Q4H epinephrine 0.3 mg (0.3 mL) IM Q15M PRN famotidine 20 mg PO BID fexofenadine (Allergy Relief (fexofenadine)) 180 mg PO DAILY fluticasone propionate 50 mcg/actuation (Flonase Allergy Relief) 1 spray intranasal DAILY hydroxyzine HCl 25 mg PO BEDTIME hydroxyzine HCl 10 mg orally take 1 tablet every morning and as needed; ibuprofen 400 mg PO Q6H PRN ketotifen fumarate 0.025%(0.035%) (Alaway) 1 drp ophthalmic (eye) BID lamotrigine 200 mg PO BID lamotrigine 100 mg PO DAILY linaclotide (Linzess) 72 mcg PO DAILY magnesium gluconate (Mag-G) 27 mg PO DAILY miscellaneous medical supply pull-ups as directed; size adult small (weight = 55.7 kg). NPI#[id number] naproxen 500 mg orally at onset prn; ofloxacin 0.3% 10 drps otic (ears) DAILY 7 days ondansetron 8 mg sublingual every 4 hrs prn; pyridoxine (vitamin B6) 100 mg PO BID riboflavin (vitamin B2) 100 mg PO BID risperidone 0.5 mg PO BID rizatriptan 10 mg orally prn onset + 2 hrs; sertraline 25 mg PO DAILY sertraline 100 mg PO DAILY terazosin 1 mg PO BEDTIME 90 days trazodone 50 mg PO .at bedtime [wheelchair As directed] zonisamide 300 mg PO ONCE Dental Screening Dental Screen Date: 03/29/25 HPI HPI [phone] anemia and VWD: Details: her best friend has von willebrands. she thinks she has the same thing based on some recent things. easy bruising - on legs. trouble eating certain things - fish, sandwichmeat, oatmeal and chicken are all hard for her to eat. she is having lots of nausea but no vomiting. feels really cold all the time. no fever. has lost weight. has been having diarrhea daily - 2x/d. weight has gone from 154 to 142 in 2 weeks. LMP 1 mo ago. usually gets a period every month. uses pads. super size. typically uses 6 pads during the day and 8 pads overnight. didnt used to have menses this heavy when younger but since starting to get periods again off control they are now heavy. she has appt with ELECTRONIC SYSTEM ENGINEER for IUD next month. at bedtime when she gets ready for bed and brushes her teeth her nose starts bleeding. her gums also start bleeding. she is currently sexually active and is using condoms every time. new BF x [address] Xander still saw her 1 mo ago. [facility] Medical History Frequent UTI Kidney stones Schizoaffective disorder Autism Anxiety OCD (obsessive compulsive disorder) Intellectual disability Migraines Chiari malformation type I Central auditory processing disorder Bladder incontinence Cerebral palsy Seizure disorder Surgical History No pertinent past surgical history Family History Mother Substance abuse Depression Anxiety Alcohol abuse Cancer Kidney disease Seizures Asthma ADHD Father Kidney disease ADHD Social History Household Members: Spouse and Other Household Members Other:: w/spouse in [place] w/e's & vacations o/w in town w/ mom & sibs/foster sib Alcohol intake: never Patient Tobacco Use Status: Never used Tobacco Cognitive needs: No Hearing needs: No Vision needs: No Review of Systems Const All systems reviewed & are unremarkable except as noted in HPI and below Pediatric Exam Const Constitutional General: no acute distress and anxious Resp Effort & Inspection: normal respiratory effort Telehealth Telehealth Telehealth Platform: [employer] Location of provider rendering services: practice address Location of patient: address on file Patient Identification confirmed using: Name, : Yes Telehealth method: video Patient verbally consented to treatment: Yes Patient verbally consented to billing insurance company: Yes Patient informed of any privacy concerns related to visit: Yes Minutes spent on Phone/Video with Pt.: 30 Assessment & Plan Assessment & Plan (1) Menorrhagia: Code(s): N92.0 - Excessive and frequent menstruation with regular cycle (2) Unintended weight loss: Code(s): R63.4 - Abnormal weight loss (3) Diarrhea: Code(s): R19.7 - Diarrhea, unspecified Plan discussed the VWD less likely given history of jewelry casting model maker apprentice menses when younger but also discussed that constellation of sxs concerning for GI process. will check labs with f/u based on result. also advised pt to schedule appt with GI to discuss sxs (sib with inflammatory bowel dz). Orders: Orders Complete Blood Count Auto Diff Today K52.9 - Noninfective gastroenteritis and colitis, unspecified, N92.0 - Excessive and frequent menstruation with regular cycle, R63.4 - Abnormal weight loss TSH reflex Free T4 Today K52.9 - Noninfective gastroenteritis and colitis, unspecified, N92.0 - Excessive and frequent menstruation with regular cycle, R00.0 - Tachycardia, unspecified, R63.4 - Abnormal weight loss Erythrocyte Sedimentation Rate Today K52.9 - Noninfective gastroenteritis and colitis, unspecified, N92.0 - Excessive and frequent menstruation with regular cycle, R63.4 - Abnormal weight loss Von Willebrand Factor Antigen Today K52.9 - Noninfective gastroenteritis and colitis, unspecified, N92.0 - Excessive and frequent menstruation with regular cycle, R63.4 - Abnormal weight loss Comprehensive Met. Panel Today K52.9 - Noninfective gastroenteritis and colitis, unspecified, N92.0 - Excessive and frequent menstruation with regular cycle, R63.4 - Abnormal weight loss CRP High Sensitivity Today K52.9 - Noninfective gastroenteritis and colitis, unspecified, N92.0 - Excessive and frequent menstruation with regular cycle, R63.4 - Abnormal weight loss Mixing Study (PT/PTT) Today K52.9 - Noninfective gastroenteritis and colitis, unspecified, N92.0 - Excessive and frequent menstruation with regular cycle, R63.4 - Abnormal weight loss HCG Quantitative Today K52.9 - Noninfective gastroenteritis and colitis, unspecified, N92.0 - Excessive and frequent menstruation with regular cycle, R63.4 - Abnormal weight loss Ferritin Today N92.0 - Excessive and frequent menstruation with regular cycle Coding Level of Care Code Tele Est Pt Level 4 (51324) Diagnoses Menorrhagia N92.0 Unintended weight loss R63.4 Diarrhea R19.7
--- OUTSIDE RECORDS SUMMARY | 2025-05-21 18:41 | XMS_ITS | Encounter Summary ---
Author Organization [facility] Address [address] [place] [address] Care Team Providers Care Vacuum Drum Drier Operator Name Role Phone Jennifer Weathers MD Primary Care Provider [phone] Reason for Visit * Reason Comments Medication Refill Encounter Details Date Type Department Care Team ([facility] st Contact Info) Description 08/09/2021 Refill [facility] Gastroenterology[address] [phone] Olga Terrell MD [address] [place] [address] Constipation, unspecified Social History Tobacco Use Types [...] 08/14/2025 9:00 AM EST Office Visit [facility], [place] [address] [place] [address] Olga Terrell MD [address] [place] [address] documented as of this encounter Visit Diagnoses Diagnosis Constipation, unspecified documented in this encounter Care Teams Vacuum Drum Drier Operator Relationship Specialty Start Date End Date Jennifer Weathers MD [address] [place] [address] PCP - General 08/15/19 documented as of this encounter
--- OUTSIDE RECORDS SUMMARY | 2025-05-21 18:41 | XMS_ITS | Encounter Summary ---
Author Organization [facility] Address [address] [place] [address] Care Team Providers Care Counter Weigher Name Role Phone Jennifer Weathers MD Primary Care Provider [phone] Reason for Visit * Reason Comments Medication Refill Encounter Details Date Type Department Care Team (Late st Contact Info) Description 02/29/[address] [phone] Olga Terrell MD [address] [place] [address] Constipation, unspecified Social History Tobacco Use Types [...] Description 08/14/2025 9:00 AM EST [facility] [address] [place] [address] Olga Terrell MD [address] [place] [address] documented as of this encounter Visit Diagnoses Diagnosis Constipation, unspecified documented in this encounter Care Teams Counter Weigher Relationship Specialty Start Date End Date Jennifer Weathers MD [address] [place] [address] PCP - General 08/15/19 documented as of this encounter
--- OUTSIDE RECORDS SUMMARY | 2025-05-21 18:41 | XMS_ITS | Encounter Summary ---
Author Organization [facility] Address [address] [place] [address] Care Team Providers Care Property Economist Name Role Phone Jennifer Weathers MD Primary Care Provider [phone] Reason for Visit * Reason Comments Medication Refill Encounter Details Date Type Department Care Team (Late st Contact Info) Description 12/03/2019 Refill [facility] G[facility]ology, [place] [address] [place] [address] Olga Terrell MD [address] [place] [address] Constipation, unspecified constipation type Social History Tobacco [...] Description 08/14/2025 9:00 AM EST Office Visit [facility] G[facility]ology, [place] [address] [place] [address] Olga Terrell MD [address] [place] [address] documented as of this encounter Visit Diagnoses Diagnosis Constipation, unspecified constipation type documented in this encounter Care Teams Property Economist Relationship Specialty Start Date End Date Jennifer Weathers MD [address] [place] [address] PCP - General 08/15/19 documented as of this encounter
--- OUTSIDE RECORDS SUMMARY | 2025-05-21 18:41 | XMS_ITS | Clinical Summary ---
Author Organization [facility] Address [address] [place] [address] Care Team Providers Care Millwork Estimator Name Role Phone Jennifer Weathers MD Primary Care Provider [phone] Source Comments Please note that some or [...] so, obtain the minor's consent prior to disclosure.[facility] Allergies Active Allergy Reactions Criticality Noted [...] 12/23/2020 Cat Hair Standardized Allergenic Extract 12/23/2020 [place] And Derivatives Rash Low 10/05/2018 Contact dermatitis Codeine 12/12/2019 Gluten 12/12/2019 [place] 03/07/2023 Mold 08/15/2017 Reaction Type from PowerChart: Allergy; Multivit With Min-Folic Acid 12/23/2020 red apples, peaches, citrus fruits Nutritional Supplement-Fiber 10/19/2021 [place] 10/19/2021 Other reaction(s): 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 Please provide an extra labeled bottle for school, # 30 tablet, 0 Refills, Maintenance, 11/05/22 14:30:00 EDT, [facility]/pharmacy #[id number], 150, cm, 10/21/22 16:00:00 EDT, [...] Replace Required Details, Route to Pharmacy Electronically, [facility]/pharmacy #[id number], Partial fill... 12/04/19 23 Active [...] into the muscle 06/01/20 24 Active PNV,calcium 00-tqcu-wkvja acid 27 mg iron- 1 mg Tablet See Instructions, TAKE 1 TABLET BY MOUTH EVERY DAY, # 30 tablet, 3 Refills, Maintenance, 10/25/23 15:46:00 EDT, [id number], 30, TAKE 1 TABLET BY MOUTH EVERY DAY, 158, cm, 05/31/23 15:01:00 EST, Height, 61, kg, 12/31/22 12:13:00 EDT, Dry Weight 10/25/19 24 Active PNV,calcium 22-fwyc-txlfy acid 27 mg iron- 1 mg Tablet [...] Description 04/30/2025 1:00 PM EDT Office Visit [facility] Gastroenterology, [place] [address] [place] [address] Olga Terrell MD Constipation, unspecified constipation type (Primary Dx) 04/29/2025 Telephone [facility] Gastroenterology, [address] [phone] Olga Terrell MD from Last 3 Months [...] Office Visit [facility] G[facility]ology, [place] [address] [place] [address] Olga Terrell MD [address] [place] [address] Health Maintenance Due Date Last Done Comments DTaP/TDAP/TD VACCINES (1 - Tdap) 2010 ADOLESCENT HIV SCREENING 2016 COVID-19 Vaccine ( - 2023-2 5 season) 2025 INFLUENZA (#1) 2025 NIRSEVIMAB VACCINES UNDER 8 MONTHS Aged Out No longer eligible based on patient's age to complete this topic Insurance [facility] [employer] Care Teams Millwork Estimator Relationship Specialty Start Date End Date Jennifer Weathers MD [address] [place] [address] PCP - General 08/15/19
--- OUTSIDE RECORDS SUMMARY | 2025-05-21 18:41 | XMS_ITS | Encounter Summary ---
Author Organization [facility] Address [address] [place] [address] Care Team Providers Care Wrapper Sizer Name Role Phone Jennifer Weathers MD Primary Care Provider [phone] Encounter Details Date Type Department Care Team ([facility] st Contact Info) Description 04/29/2025 Telephone [facility] Gastroenter[address] [phone] Olga Terrell MD [address] [place], [place] [phone] Social History Tobacco Use Types Packs/Day Years [...] Boo RN - 04/29/2025 1:15 PM EDT Chief Nurse Executive spoke with Paola and she reports she has been having abdominal discomfort and not stooling asoften. Paola reports she thought she was on Linzess 145 mcg daily but she notice that the script was for linzess 72mcg daily. Chief Nurse Executive advised Paola according to the last clinical note on 10/19/24 MD Terrell stated you were on Linzess 72 mcg daily and famotidine 20 mg twice daily. Paola reports she has been having a lot of seizure activity so her memory could be off. Last appt was on 10/19/24. Chief Nurse Executive booked Paola for 04/30/25 at 1pm with MD Terrell. FYI * Telephone Encounter - Mari Urbina - 04/29/2025 12:20 PM EDT Provider: Name of Caller: Patient Best call back number: [phone] Reason for call: pt called in has been having abd pain or the past few days and is worried. Asks for a call back for next steps. documented in this encounter Plan of Treatment Upcoming Encounters Date Type Department Care Team (Late st Contact Info) Description 08/14/2025 9:00 AM EST Office Visit [facility] Gastroenterology, [place] [address] [place] [address] Olga Terrell MD [address] [place] [address] documented as of this encounter Visit Diagnoses Not on filedocumented in this encounter Care Teams Wrapper Sizer Relationship Specialty Start Date End Date Jennifer Weathers MD [address] [place] [address] PCP - General 08/15/19 documented as of this encounter
--- OUTSIDE RECORDS SUMMARY | 2025-05-21 18:41 | XMS_ITS | Encounter Summary ---
Author Organization [address] [address] Care Team Providers Care Floral Designer Name Role Phone Jennifer Weathers MD Primary Care Provider [phone] Reason for Visit * Reason Comments Medication Refill Encounter Details Date Type Department Care Team (Late st Contact Info) Description 09/16/[address] [phone] Olga Terrell MD [address] [place] [address] Constipation, unspecified Social History Tobacco Use Types [...] Description 08/14/2025 9:00 AM EST [facility] [address] [place] [address] Olga Terrell MD [address] [place] [address] documented as of this encounter Visit Diagnoses Diagnosis Constipation, unspecified documented in this encounter Care Teams Floral Designer Relationship Specialty Start Date End Date Jennifer Weathers MD [address] [place] [address] PCP - General 08/15/19 documented as of this encounter
--- OUTSIDE RECORDS SUMMARY | 2025-05-21 18:41 | XMS_ITS | Encounter Summary ---
Author Organization [facility] Address [address] [phone] Care Team Providers Care Nutritionists Name Role Phone Jennifer Weathers MD Primary Care Provider [phone] Reason for Visit * Reason Comments Medication Refill Encounter Details Date Type Department Care Team (Late st Contact Info) Description 05/18/2020 Refill [facility] Gastroenterology, [place] [address] [place] [address] Olga Terrell MD [address] [place] [address] Poor appetite Social History Tobacco Use Types [...] Description 08/14/2025 9:00 AM EST Office Visit [facility] Gastroenterology, [place] [address] [place] [address] Olga Terrell MD [address] [place] [address] documented as of this encounter Visit Diagnoses Diagnosis Poor appetite Anorexia documented in this encounter Care Teams Nutritionists Relationship Specialty Start Date End Date Jennifer Weathers MD [address] [place] [address] PCP - General 08/15/19 documented as of this encounter
--- OUTSIDE RECORDS SUMMARY | 2025-05-21 18:41 | XMS_ITS | Encounter Summary ---
Author Organization [facility] Address [address] [place] [address] Phone Care Team Providers Care Textile Technologist Name Role Phone Jasiel Jennifer Primary Care Provider Encounter Details Date Type Department Care Team (Late st Contact Info) Description 05/28/2015 Conversion Encounter [facility] - [address] [address] Social History Tobacco Use Types Packs/Day Years [...] on filedocumented in this encounter Care Teams Textile Technologist Relationship Specialty Start Date End Date Jennifer Weathers [address] [place] [address] PCP - General 11/23/17 documented as of this encounter
--- OUTSIDE RECORDS SUMMARY | 2025-05-21 18:41 | XMS_ITS | Encounter Summary ---
Author Organization [facility] Address [address] [place] [address] Care Team Providers Care Counselor Aide Name Role Phone Jennifer Weathers MD Primary Care Provider [phone] Reason for Visit * Reason Comments Medication Refill Encounter Details Date Type Department Care Team ([facility] st Contact Info) Description 11/28/2019 Refill [facility] Gastroenterology[address] [phone] Olga Terrell MD [address] [place] [address] Constipation, unspecified constipation type Social History Tobacco [...] stated she was not on the dulcolax Contact Centre Supervisor called mom and she stated they are NOT on Dulcolax. Refuse med please * Telephone Encounter - Joaquina Jessica RN - 11/28/2019 9:25 AM EDT Per chart not taking? documented in this encounter Plan of Treatment Upcoming Encounters Date Type Department Care Team (Late st Contact Info) Description 08/14/2025 9:00 AM EST Office Visit [facility] Gastroenterology, [place] [address] [place] [address] Olga Terrell MD [address] [place] [address] documented as of this encounter Visit Diagnoses Diagnosis Constipation, unspecified constipation type documented in this encounter Care Teams Counselor Aide Relationship Specialty Start Date End Date Jennifer Weathers MD [address] [place] [address] PCP - General 08/15/19 documented as of this encounter
--- OUTSIDE RECORDS SUMMARY | 2025-05-21 18:41 | XMS_ITS | Encounter Summary ---
Author Organization [address] [address] Care Team Providers Care Brand Executive Name Role Phone Jennifer Weathers MD Primary Care Provider [phone] Reason for Visit * Reason Comments Medication Refill Encounter Details Date Type Department Care Team (Late st Contact Info) Description 05/28/[address] [phone] Olga Terrell MD [address] [place] [address] [phone] Constipation, unspecified Social History Tobacco Use Types [...] Description 08/14/2025 9:00 AM EST [facility] [address] [place] [address] Olga Terrell MD [address] [place] [address] [phone] documented as of this encounter Visit Diagnoses Diagnosis Constipation, unspecified documented in this encounter Care Teams Brand Executive Relationship Specialty Start Date End Date Jennifer Weathers MD [address] [place] [address] PCP - General 08/15/19 documented as of this encounter
--- OUTSIDE RECORDS SUMMARY | 2025-05-21 18:41 | XMS_ITS | Encounter Summary ---
Author Organization [facility] Address [address] [place] [address] Care Team Providers Care Maintenance Porter Name Role Phone Jennifer Weathers MD Primary Care Provider [phone] Reason for Visit * Reason Comments Medication Refill Encounter Details Date Type Department Care Team (Late st Contact Info) Description 02/10/2021 Refill [facility]astroenter[address] [address] Olga Terrell MD [address] [place] [address] Gastro-esophageal reflux disease without esophagitis Social History [...] 9:00 AM EST Office Visit [facility] Gastroenterology[address] [address] Olga Terrell MD [address] [place] [address] documented as of this encounter Visit Diagnoses Diagnosis Gastro-esophageal reflux disease without esophagitis documented in this encounter Care Teams Maintenance Porter Relationship Specialty Start Date End Date Jennifer Weathers MD [address] [place] [address] PCP - General 08/15/19 documented as of this encounter
--- OUTSIDE RECORDS SUMMARY | 2025-05-21 18:41 | XMS_ITS | Encounter Summary ---
Author Organization [facility] Address [address] [place] [address] Care Team Providers Care Senior Pricing Analyst Name Role Phone Jennifer Weathers MD Primary Care Provider [phone] Reason for Visit * Reason Comments Medication Refill Encounter Details Date Type Department Care Team (Late Contact Info) Description 01/01/2020 Refill [facility] Gastroenter[address] [phone] Olga Terrell MD [address] [place] [address] Gastroesophageal reflux disease, esophagitis presence not specified [...] a follow up appt. Will send to [facility] to book Weight: 54.7 kg [...] Office Visit [facility] Gastroenterology, [place] [address] [place] [address] Olga Terrell MD [address] [place] [address] documented as of this encounter Visit Diagnoses Diagnosis Gastroesophageal reflux disease, esophagitis presence not specified documented in this encounter Care Teams Senior Pricing Analyst Relationship Specialty Start Date End Date Jennifer Weathers MD [address] [place] [address] PCP - General 08/15/19 documented as of this encounter
--- OUTSIDE RECORDS SUMMARY | 2025-05-21 18:41 | XMS_ITS | Encounter Summary ---
Author Organization [facility] Address [address] [place] [address] Care Team Providers Care Teaching Pastor Name Role Phone Jennifer Weathers MD Primary Care Provider [phone] Reason for Visit * Reason Comments Medication Refill Encounter Details Date Type Department Care Team ([facility] st Contact Info) Description 04/26/2021 Refill [facility] Gastroenterology[address] [phone] Katya Arthur MD [address] [place] [address] Constipation, unspecified Social History Tobacco Use Types [...] Description 08/14/2025 9:00 AM EST Office Visit [facility] Gastroenterology, [place] [address] [place] [address] Olga Terrell MD [address] [place] [address] documented as of this encounter Visit Diagnoses Diagnosis Constipation, unspecified documented in this encounter Care Teams Teaching Pastor Relationship Specialty Start Date End Date Jennifer Weathers MD [address] [place] [address] PCP - General 08/15/19 documented as of this encounter
--- OUTSIDE RECORDS SUMMARY | 2025-05-21 18:41 | XMS_ITS | Encounter Summary ---
Author Organization [facility] Address [address] [place] [address] Care Team Providers Care Patch Driller Name Role Phone Jennifer Weathers MD Primary Care Provider [phone] Reason for Visit * Reason Comments Medication Refill Encounter Details Date Type Department Care Team (Late st Contact Info) Description 10/13/2020 Refill [facility] Gastroenterology, [place] [address] [place] [address] Olga Terrell MD [address] [place] [address] Gastro-esophageal reflux disease without esophagitis Social History [...] 08/14/2025 9:00 AM EST Office Visit [facility] Gastroenterology, [place] [address] [place] [address] Olga Terrell MD [address] [place] [address] documented as of this encounter Visit Diagnoses Diagnosis Gastro-esophageal reflux disease without esophagitis documented in this encounter Care Teams Patch Driller Relationship Specialty Start Date End Date Jennifer Weathers MD [address] [place] [address] PCP - General 08/15/19 documented as of this encounter
--- OUTSIDE RECORDS SUMMARY | 2025-05-21 18:41 | XMS_ITS | Encounter Summary ---
[place] [address] Care Team Providers Care Advertising Sales Assistant Name Role Phone Jennifer Weathers MD Primary Care Provider [phone] Reason for Visit * Reason Comments Medication Refill Encounter Details Date Type Department Care Team (Late st Contact Info) Description 04/02/[address] [phone] Olga Terrell MD [address] [place] [phone] Gastro-esophageal reflux disease without esophagitis Social History [...] EST [facility] [address] [place] [address] Olga Terrell MD [address] [place] [address] documented as of this encounter Visit Diagnoses Diagnosis Gastro-esophageal reflux disease without esophagitis documented in this encounter Care Teams Advertising Sales Assistant Relationship Specialty Start Date End Date Jennifer Weathers MD [address] [place] [address] PCP - General 08/15/19 documented as of this encounter
--- OUTSIDE RECORDS SUMMARY | 2025-05-21 18:41 | XMS_ITS | Encounter Summary ---
Author Organization [address] [address] Care Team Providers Care Senior Software Quality Analyst Name Role Phone Jennifer Weathers MD Primary Care Provider [phone] Reason for Visit * Reason Comments Medication Refill Encounter Details Date Type Department Care Team (Late st Contact Info) Description 01/12/[address] [phone] Olga Terrell MD [address] [place] [address] Constipation, unspecified Social History Tobacco Use Types [...] 08/14/2025 9:00 AM EST [facility] [place] [address] [place] [address] Olga Terrell MD [address] [place] [address] documented as of this encounter Visit Diagnoses Diagnosis Constipation, unspecified documented in this encounter Care Teams Senior Software Quality Analyst Relationship Specialty Start Date End Date Jennifer Weathers MD [address] [place] [address] PCP - General 08/15/19 documented as of this encounter
--- OUTSIDE RECORDS SUMMARY | 2025-05-21 18:41 | XMS_ITS | Encounter Summary ---
[place] [address] Care Team Providers Care Team Assistant Name Role Phone Jennifer Weathers MD Primary Care Provider [phone] Reason for Visit * Reason Comments Medication Refill Encounter Details Date Type Department Care Team (Late st Contact Info) Description 03/28/2020 Refill [facility]astro[facility] [address] Olga Terrell MD [address] [place] [address] Poor appetite Social History Tobacco Use Types [...] Description 08/14/2025 9:00 AM EST Office Visit [facility] Gastroenter[facility] [address] Olga Terrell MD [address] [place] [address] documented as of this encounter Visit Diagnoses Diagnosis Poor appetite Anorexia documented in this encounter Care Teams Team Assistant Relationship Specialty Start Date End Date Jennifer Weathers MD [address] [place] [address] PCP - General 08/15/19 documented as of this encounter
--- OUTSIDE RECORDS SUMMARY | 2025-05-21 18:41 | XMS_ITS | Encounter Summary ---
Author Organization [facility] Address [address] [place] [address] Care Team Providers Care Surgical Consultant Name Role Phone Jennifer Weathers MD Primary Care Provider Reason for Visit * Reason Comments Medication Refill Encounter Details Date Type Department Care Team (Late Contact Info) Description 11/02/[address] [phone] Olga Terrell MD [address] [place] [address] Constipation, unspecified; Gastro-esophageal reflux disease without esophagitis [...] Office Visit [facility]ology, [place] [address] [place] [address] Olga Terrell MD [address] [place] [address] documented as of this encounter Visit Diagnoses Diagnosis Constipation, unspecified Gastro-esophageal reflux disease without esophagitis documented in this encounter Care Teams Surgical Consultant Relationship Specialty Start Date End Date Jennifer Weathers MD [address] [place] [address] PCP - General 08/15/19 documented as of this encounter
--- OUTSIDE RECORDS SUMMARY | 2025-05-21 18:42 | XMS_ITS | Encounter Summary ---
[place] [address] Care Team Providers Care Supervisor Publications Production Name Role Phone Jennifer Weathers MD Primary Care Provider [phone] Reason for Visit * Reason Comments Medication Refill Encounter Details Date Type Department Care Team (Late Contact Info) Description 02/25/2022 Refill [facility] [phone] Olga Terrell MD [address] [place] [address] Gastro-esophageal reflux disease without esophagitis; Constipation, unspecified [...] Office Visit [facility], [place] [address] [place] [address] Olga Terrell MD [address] [place] [address] documented as of this encounter Visit Diagnoses Diagnosis Gastro-esophageal reflux disease without esophagitis Constipation, unspecified documented in this encounter Care Teams Supervisor Publications Production Relationship Specialty Start Date End Date Jennifer Weathers MD [address] [place] [address] PCP - General 08/15/19 documented as of this encounter
--- OUTSIDE RECORDS SUMMARY | 2025-05-21 18:42 | XMS_ITS | Clinical Summary ---
Author Organization [facility] Address [address] [place] [address] Phone Care Team Providers Care Director Of Medical Review Name Role Phone Myra Damian MD Unavailable [phone] Nishi Weathers Primary Care Provider [phone] Nishi Weathers Unavailable Allergies Active Allergy Reactions Criticality Noted Date [...] and fresh green apples Cat Dander 12/23/2020 Routt And Derivatives Rash Low 10/05/2018 Contact dermatitis Codeine 12/12/2019 Gluten 12/12/2019 Mold 08/15/2017 Reaction Type from PowerChart: Allergy; Multivit With Min-Folic Acid 12/23/2020 red apples, peaches, citrus fruits Nutritional Supplement-Fiber 10/19/2021 [place] (Prunus Persica) Hives,Other,Unkno w n 04/28/2017 Fresh [...] tab, Refills: 5, Entered: 04/12/23 15:08:00 EDT, [facility]/pharmacy #[id number] 3 Active ketotifen (Alaway) 0.025 % (0.035 %) ophthalmic solution drop, Eye Both, BID, Entered: 04/29/17 9:16:43 EDT 7 Active ondansetron ODT (Zofran-ODT) 8 mg disintegrating tablet Dose: 8 mg, Dose Amount: 1 tab, PO, BID, PRN Nausea/Vomit ing, Dispense Quantity: 60 tab, Refills: 0, Entered: 12/06/22 11:21:00 EDT, [facility]/pharmacy #[id number] 3 Active polyethylene glycol 3350 (MIRALAX [...] of 300mg. 30 tablet 5 5 Active riboflavin 100 mg tablet tabletIndications: [...] time each day. 90 tablet 5 Active cloBAZam (onfi) 10 mg tabletIndications: Focal epilepsy with impairment of consciousness, intractable (HCC) Take 20 mg = 2 tablets by mouth every morning AND 30 mg = 3 tablets in the evening. 450 tablet 1 5 Active cloBAZam (onfi) 10 mg tabletIndications: Focal epilepsy with impairment of consciousness, intractable (HCC) Take 20 mg = 2 tablets by mouth every morning AND 30 mg = 3 tablets in the evening. 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 09/04/2024 Encounters Date Type Department Care Team Description 04/12/2025 Refill [facility] [address] [place] [phone] Pat Underwood MD Focal epilepsy with impairment of consciousness, intractable (HCC) 03/06/2025 Telephone [facility] [address] [place] [phone] Pat Underwood MD Med Refill; SAP from Last 3 Months Social History Tobacco [...] Health Maintenance Due Date Last Done Comments Chlamydia and Gonorrhea Screening 2003 HIV Screening 2003 Meningococcal B Vaccine (1 of 2 - Standard) 2019 Hepatitis C Screening 2021 Influenza Vaccine (#1) 2025 , 05/29/2019, 03/15/2018, Additional history exists DTaP/Tdap/Td Vaccines (6 - Td or Tdap) 10/22/2025 10/23/2015, 06/12/2007, 09/04/2004, Additional history exists Anemia Screening 09/13/2029 09/13/2024, 09/13/2024 Hepatitis B Vaccines Completed 03/05/2004, 2003, 2003 HIB Vaccines Completed 09/04/2004, 11/16, 2003, Additional history exists Pneumococcal Vaccine: Pediatrics (0 to 5 Years) and At-Risk Patients (6 to 49 Years) Aged Out 09/04/2004, 2004, 2003, Additional history exists No longer eligible based on patient's age to complete this topic IPV Vaccines Completed 06/12/2007, 11/16, 2003, Additional history exists MMR Vaccines Completed 06/12/2007, 09/04/2004 Varicella Vaccines Completed 06/12/2007, 2004 Hepatitis A Vaccines Completed 02/17/2017, 10/23/19 16 HPV Vaccines Completed 05/25/2018, 02/17/2017 Meningococcal Vaccine Completed 08/14/2020, 016 Rotavirus Vaccines Aged Out No longer eligible based on patient's age to complete this topic Procedures Procedure Name Priority Date/Time Associated Diagnosis Comments CBC WITH AUTO DIFFERENTIAL - NON ORDERABLE Routine 09/13/2024 10:03 AM EST Intractable epilepsy with both generalized and focal features (HCC) from Last 3 Months or Most Recently Relevant to Health Maintenance Results * (ABNORMAL) CBC and differential (09/13/2024 10:03 AM EST) WBC 7.66 4.94 - 10.04 K cells/uL LAB HEMATOLOGY METHOD 09/13/2024 10:22 AM [facility] RBC 4.59 4.03 - 4.91 M cells/uL LAB HEMATOLOGY METHOD 09/13/2024 10:22 AM [facility] Hemoglobin 13.9 11.4 - 14.8 g/dL LAB HEMATOLOGY METHOD 09/13/2024 10:22 AM [facility] Hematocrit 39.9 35.5 - 44.6 % LAB HEMATOLOGY METHOD 09/13/2024 10:22 AM [facility] MCV 86.9 80.7 - 93.7 fL LAB HEMATOLOGY METHOD 09/13/2024 10:22 AM [facility] MCH 30.3 25.7 - 31.2 pg LAB HEMATOLOGY METHOD 09/13/2024 10:22 AM [facility] MCHC 34.8(H) 31.3 - 34.0 g/dL LAB HEMATOLOGY METHOD 09/13/2024 10:22 AM [facility] RDW 11.4(L) 11.9 - 14.8 % LAB HEMATOLOGY METHOD 09/13/2024 10:22 AM [facility] Platelets 302 150 - 450 K cells/uL LAB HEMATOLOGY METHOD 09/13/2024 10:22 AM [facility] MPV 9.2(L) 9.6 - 11.9 fL LAB HEMATOLOGY METHOD 09/13/2024 10:22 AM [facility] Nucleated RBCs % 0.0 % LAB HEMATOLOGY METHOD 09/13/2024 10:22 AM [facility] Absolute Nucleated RBC Count 0.00 K cells/uL LAB HEMATOLOGY METHOD 09/13/2024 10:22 AM [facility] Neutrophils and Bands % 53.0 46.0 - 68.6 % LAB HEMATOLOGY METHOD 09/13/2024 10:22 AM EST [facility] Lymphocytes % 33.2 21.8 - 42.1 % LAB HEMATOLOGY METHOD 09/13/2024 10:22 AM EST [facility] Monocytes % 8.9 5.6 - 10.2 % LAB HEMATOLOGY METHOD 09/13/2024 10:22 AM EST [facility] Eosinophils % 3.9(H) 0.6 - 3.8 % LAB HEMATOLOGY METHOD 09/13/2024 10:22 AM EST [facility] Basophils % 0.9 0.3 - 0.9 % LAB HEMATOLOGY METHOD 09/13/2024 10:22 AM EST [facility] Immature Granulocytes % 0.1(L) 0.2 - 0.5 % LAB HEMATOLOGY METHOD 09/13/2024 10:22 AM EST [facility] Absolute Neutrophil Count 4.06 2.43 - 6.42 K cells/uL LAB HEMATOLOGY METHOD 09/13/2024 10:22 AM EST [facility] Absolute Lymphocyte Count 2.54 1.51 - 2.99 K cells/uL LAB HEMATOLOGY METHOD 09/13/2024 10:22 AM EST [facility] Absolute Monocyte Count 0.68 0.36 - 0.77 K cells/uL LAB HEMATOLOGY METHOD 09/13/2024 10:22 AM EST [facility] Absolute Eosinophil Count 0.30(H) 0.04 - 0.27 K cells/uL LAB HEMATOLOGY METHOD 09/13/2024 10:22 AM EST [facility] Absolute Basophil Count 0.07(H) 0.02 - 0.06 K cells/uL LAB HEMATOLOGY METHOD 09/13/2024 10:22 AM [facility] Absolute Immature Granulocyte Count 0.01 0.01 - 0.04 K cells/uL LAB HEMATOLOGY METHOD 09/13/2024 10:22 AM [facility] Blood Venous structure / Unknown Venipuncture / Unknown 09/13/2024 10:03 AM EST 09/13/2024 10:10 AM EST Pat Hoskins MD LAB BLOOD ORDER VINI Final Result [facility] [address] [place] [address], from Last 3 Months or Most Recently Relevant to Health Maintenance Insurance [employer] [place] [employer] Member Subscriber Plan / Payer ( fective 2023-) Name:Paola Rashid Relation to Subscriber:Self Name:Paola Rashid Payer ID:Not on file Group ID:Not on file Type:Not on file Address: [employer] [address] [place] [phone] [facility] [place], [place] [address] [employer]ENT[employer] Member Subscriber Plan / Payer ( fective 2023-Present) Name:Paola Rashid Relation to Subscriber:Self Name:Paola Rashid Payer ID:Not on file Group ID:Not on file Type:Not on file Address: [employer] [address] [place] [phone] [facility] Care Teams Director Of Medical Review Relationship Specialty Start Date End Date Myra Damian MD [address] [place] [address] PCP - Insurance PCP 12/08/18 Nishi Weathers [address] [place] [address] [address] ALMAGUER [address] [place] [id number] PCP - General 04/29/17 iNshi Weathers [address] [place] [address] DR ALMAGUER [address] [place] [id number] PCP - Clinical PCP 11/17/20
--- OUTSIDE RECORDS SUMMARY | 2025-05-21 18:42 | XMS_ITS | Clinical Summary ---
Author Organization [facility] Address [address] [place] [address] Phone Care Team Providers Care Processing Specialist Name Role Phone Jennifer Weathers Primary Care Provider [phone] Immunizations Immunization Administration Dates Next Due DTaP [...] age to complete this topic Care Teams Processing Specialist Relationship Specialty Start Date End Date Jennifer Weathers [address] [place] [address] PCP - General 11/23/17
--- OUTSIDE RECORDS SUMMARY | 2025-05-21 18:42 | XMS_ITS | Encounter Summary ---
Author Organization [address] [address] Care Team Providers Care Disintegrator Name Role Phone Jennifer Weathers MD Primary Care Provider [phone] Reason for Visit * Reason Comments Medication Refill Encounter Details Date Type Department Care Team (Late st Contact Info) Description 03/08/[address] [phone] Olga Terrell MD [address] [place] [phone] Gastro-esophageal reflux disease without esophagitis Social History [...] Visit [facility], [place] [address] [place] [address] Olga Terrell MD [address] [place] [address] documented as of this encounter Visit Diagnoses Diagnosis Gastro-esophageal reflux disease without esophagitis documented in this encounter Care Teams Disintegrator Relationship Specialty Start Date End Date Jennifer Weathers MD [address] [place] [id number] PCP - General 08/15/19 documented as of this encounter
--- OUTSIDE RECORDS SUMMARY | 2025-05-21 18:42 | XMS_ITS | Encounter Summary ---
[place] [address] Care Team Providers Care Transportation Attendant Name Role Phone Jennifer Weathers MD Primary Care Provider [phone] Reason for Visit * Reason Comments Medication Refill Encounter Details Date Type Department Care Team (Late st Contact Info) Description 06/21/[address] [phone] Olga Terrell MD [address] [place] [phone] Gastro-esophageal reflux disease without esophagitis Social History [...] Description 08/14/2025 9:00 AM EST [facility] [address] [place] [address] Olga Terrell MD [address] [place] [phone] documented as of this encounter Visit Diagnoses Diagnosis Gastro-esophageal reflux disease without esophagitis documented in this encounter Care Teams Transportation Attendant Relationship Specialty Start Date End Date Jennifer Weathers MD [address] [place] [id number] PCP - General 08/15/19 documented as of this encounter
--- OUTSIDE RECORDS SUMMARY | 2025-05-21 18:42 | XMS_ITS | Encounter Summary ---
Author Organization [address] [address] Care Team Providers Care Computer Console Operator Name Role Phone Jennifer Weathers MD Primary Care Provider [phone] Reason for Visit * Reason Comments Medication Refill Encounter Details Date Type Department Care Team (Late Contact Info) Description 07/21/2022 Refill [facility] [address] Olga Terrell MD [address] [place] [phone] Constipation, unspecified constipation type; Constipation, unspecified Social [...] Description 08/14/2025 9:00 AM EST Office Visit [facility], [place] [address] [place] [address] Olga Terrell MD [address] [place] [address] documented as of this encounter Visit Diagnoses Diagnosis Constipation, unspecified constipation type documented in this encounter Care Teams Computer Console Operator Relationship Specialty Start Date End Date Jennifer Weathers MD [address] [place] [id number] PCP - General 08/15/19 documented as of this encounter
== END 2025-05-21 17:55 | disposition home or self-care (01) ==
PROVIDERS: PCP Pediatrics; Visit Provider Pediatrics
DX: N92.0 Excessive and frequent menstruation with regular cycle (principal); R63.4 Abnormal weight loss; R19.7 Diarrhea, unspecified